=== PATIENT | female | born 1935 | race Caucasian/White ===

== ENCOUNTER 2018-03-02 14:27 | Inpatient (IN) | payer OTHER, MEDICARE ==
[2018-03-02 14:57] VITALS: BMI 26.6
[2018-03-02] MEDS ORDERED: QUINAPRIL HCL 20 MG TABLET (FP) PO ONE ×2 (15:24→21:15)
[2018-03-02] MEDS ORDERED: METOPROLOL TARTRATE 50 MG TABLET (FP) PO ONE (15:25)
[2018-03-02] MEDS ORDERED: FUROSEMIDE 20 MG TABLET (FP) PO ONE (15:25)
--- NOTE | 2018-03-02 15:33 | PDOC ---
History of Present Illness - General Chief Complaint: SIRS, Suspected/Possible Stated Complaint: LEFT LEG PAIN Time Seen by Provider: 03/02/18 15:02 History Source: Patient, EMS Exam Limitations: No Limitations - History of Present Illness Initial Comments: 03/02/18 15:26 The patient is an 82F with a PMH of HTN, urinary retention w/ quintana, a-fib on eliquis, spinal stenosis, and gait impairment who presents to the ER with complaints of congestion. The patient states that she's had a productive cough with yellow sputum x 2 days. She has never had a cough like this before. She called her daughter and her daughter encouraged her to call EMS. The patient denies fever, chills, but states she has some nausea. No CP or SOB, no abdominal pain. The patient states that he has a swollen leg but is unsure "maybe 3 weeks". Past History - Past Medical History Allergies/Adverse Reactions: Allergies Allergy/AdvReac Type Severity Reaction Status Date / Time No Known Allergies Allergy Verified 03/02/18 14:50 Home Medications: Ambulatory Orders Apixaban [Eliquis -] 5 mg PO BID tablet 04/19/16 Cardiac Disorders: Yes (afib) COPD: No HTN: Yes - Suicide/Smoking/Psychosocial Hx Smoking History: Former smoker Have you smoked in the past 12 months: No Information on smoking cessation initiated: No Hx Alcohol Use: No Drug/Substance Use Hx: No Substance Use Type: None Review of Systems - Review of Systems Able to Perform ROS?: Yes Comments:: 03/02/18 15:44 GENERAL/CONSTITUTIONAL: No fever or chills. No weakness. HEAD, EYES, EARS, NOSE AND THROAT: No change in vision. No ear pain or discharge. No sore throat. CARDIOVASCULAR: No chest pain, palpitations, or lightheadedness. RESPIRATORY: Positive for productive cough with yellow sputum. No wheezing or shortness of breath. GASTROINTESTINAL: Positive for nausea. No vomiting, diarrhea, constipation, or abdominal pain. GENITOURINARY: No dysuria, frequency, hematuria, or change in urination. MUSCULOSKELETAL: Positive for L leg swelling. No neck or back pain. SKIN: No rash or lesions. NEUROLOGIC: No headache, numbness, tingling, weakness, loss of consciousness, or change in strength/sensation. ENDOCRINE: No increased thirst. No abnormal weight change. HEMATOLOGIC/LYMPHATIC: No anemia, easy bleeding, or history of blood clots. ALLERGIC/IMMUNOLOGIC: No hives or skin allergy. Is the patient limited [place] proficient: No *Physical Exam - Vital Signs Last Vital Signs Temp Pulse Resp BP Pulse Ox 99.6 F 112 H 22 171/109 89 L 03/02/18 14:51 03/02/18 14:51 03/02/18 14:51 03/02/18 14:51 03/02/18 14:51 - Physical Exam Comments: 03/02/18 15:45 GENERAL: Well developed, well nourished. Awake and alert. No acute distress. HEENT: Normocephalic, atraumatic. Hearing grossly normal. Moist mucous membranes. PERRLA, EOMI. No conjunctival pallor. Sclera are non-icteric. NECK: Supple. Full ROM. No JVD. CARDIOVASCULAR: Regular rate and rhythm. No murmurs, rubs, or gallops. PULMONARY: No evidence of respiratory distress. B/l wheezing on expiration and rhonchi diffusely. ABDOMINAL: Soft. Non-tender. Non-distended. No rebound or guarding. GENITOURINARY: No CVA tenderness bilaterally. MUSCULOSKELETAL: Normal range of motion at all joints. No bony deformities or tenderness. EXTREMITIES: No cyanosis. No clubbing. 2+ edema in b/l LE. No calf tenderness. L leg more edematous than R. SKIN: Warm and dry. Normal capillary refill. No rashes. No jaundice. NEUROLOGICAL: Alert, awake, appropriate. Cranial nerves 2-12 intact. Normal speech. Gait is normal without ataxia. PSYCHIATRIC: Cooperative. Good eye contact. Appropriate mood and affect. ED Treatment Course - LABORATORY CBC & Chemistry Diagram: 03/02/18 15:20 03/02/18 15:20 - RADIOLOGY Radiology Studies Ordered: Category Date Time Status CHEST X-RAY PORTABLE* [RAD] Stat Radiology 03/02/18 15:09 Ordered DUPLEX VASCUL US-1 LEG [US] Stat Ultrasound 03/02/18 15:18 Ordered Medical Decision Making - Medical Decision Making 03/02/18 15:48 The patient is an 82F with a PMH of HTN, a-fib on eliquis, spinal stenosis, urinary retention, who presents to the ER with 2 days of congestion and productive cough. Will r/o PNA. Septic protocol being followed 2/2 to hypoxia and tachycardia. Pt is hypertensive, will give pt's home meds as she has not taken them in the morning. 03/02/18 16:00 Preliminary CXR read indicates cephalization without evidence of pneumonia or PTX. 03/02/18 17:55 Will give 20 IV lasix for CHF exacerbation. BNP 4262, doubled from previous BNP. Hospitalist paged for admission. 03/02/18 17:[address] Easley for tele admission. *DC/Admit/Observation/Transfer Diagnosis at time of Disposition: Acute exacerbation of CHF (congestive heart failure) Qualifiers: Heart failure type: unspecified Qualified Code(s): I50.9 - Heart failure, unspecified - Discharge Dispostion Condition at time of disposition: Stable Admit: Yes - Referrals Referrals: Yanick Calle MD [Primary Care Provider] - - Patient Instructions - Post Discharge Activity
[2018-03-02] MEDS ORDERED: FUROSEMIDE 40 MG TABLET (FP) ONE (15:46)
[2018-03-02] MEDS ORDERED: QUINAPRIL HCL 10 MG TABLET (FP) ONE ×2 (15:46→21:37)
[2018-03-02] MEDS ORDERED: METOPROLOL TARTRATE 50 MG TABLET (FP) ONE (15:47)
[2018-03-02 16:00] LABS: VENOUS PC02 45.4 mmHg (38-52); VENOUS PH 7.39 (7.32-7.42)
[2018-03-02 16:23] LABS: BASO % 0.7 % (0-2.0); HEMATOCRIT 40.7 % (32.4-45.2); LYMPH % 5.3 % (8-40); MCH 33.2 pg (25.7-33.7); MCHC 34.3 g/dl (32.0-36.0); MEAN CELL VOLUME 96.8 fl (80-96); MEAN PLT VOLUME 9.3 fl (7.5-11.1); MONO % 8.1 % (3.8-10.2); NEUT % 85.9 % (42.8-82.8); PLATELET COUNT 162 K/MM3 (134-434); RBC 4.21 M/mm3 (3.60-5.2); WHITE BLOOD COUNT 5.2 K/mm3 (4.0-10.0)
[2018-03-02 16:29] LABS: URINE APPEARANCE CLOUDY; URINE BILIRUBIN NEGATIVE (<2.0 mg/dL); URINE BLOOD 2+ (NEGATIVE); URINE COLOR YELLOW; URINE GLUCOSE (UA) NEGATIVE (NEGATIVE); URINE KETONE 1+ (NEGATIVE); URINE NITRITE NEGATIVE (NEGATIVE)
[2018-03-02 16:31] LABS: ALBUMIN 3.7 g/dl (3.4-5.0); ANION GAP 10 (8-16); BILIRUBIN,TOTAL 0.9 mg/dL (0.2-1.0); BLOOD UREA NITROGEN 13 mg/dL (7-18); CALCIUM 10.1 mg/dL (8.5-10.1); CHLORIDE 93 mmol/L (98-107); CO2 30 mmol/L (21-32); CREATININE 0.7 mg/dL (0.55-1.02); GLUCOSE,RANDOM 125 mg/dL (74-106); SODIUM 133 mmol/L (136-145); TOT PROT 7.9 g/dl (6.4-8.2)
[2018-03-02 16:33] LABS: ALK PHOS 87 U/L (45-117); N-TERMINAL BNP 4262.39 pg/ml (5-450); SGPT/ALT 15 U/L (12-78)
[2018-03-02 16:39] LABS: URINE LEUK ESTERASE 3+ (NEGATIVE); URINE PROTEIN 2+ (NEGATIVE)
[2018-03-02 16:48] LABS: INR 1.18 (0.82-1.09); PROTHROMBIN TIME (PATIENT) 13.3 SEC (9.98-11.88)
[2018-03-02 17:02] LABS: POTASSIUM 4.4 mmol/L (3.5-5.1)
[2018-03-02 17:03] LABS: SGOT/AST 51 U/L (15-37)
[2018-03-02] MEDS ORDERED: CEFTRIAXONE 1,000 MG in DEXTROSE 5%-WATER - 50 ML IVPB ONE (17:33)
--- NOTE | 2018-03-02 17:37 | PDOC ---
Attending Attestation - Resident Resident Name: JeremiasmelbaRajesh - ED Attending Attestation I have performed the following: I have examined & evaluated the patient, The case was reviewed & discussed with the resident, I agree w/resident's findings & plan, Exceptions are as noted - HPI HPI: 03/02/18 17:34 82-year-old female with history of hypertension, mild CHF presents with 2 days of increased cough with chest congestion. No fevers or chills, no chest pain. - Physicial Exam PE: 03/02/18 17:34 Tachycardia, relatively low O2 sat, afebrile. Course breath sounds with crackles bilaterally, no wheezing Left greater than right bilateral leg edema Abdomen benign - Medical Decision Making 03/02/18 17:35 Patient seen and evaluated with the resident. I agree with the overall evaluation, assessment, and management with the following summary of visit: 82-year-old female with chest congestion and cough for 2 days. Hypertensive, hypoxic, tachycardic. Presentation seems most consistent with CHF exacerbation, rule out ACS. Atrial fibrillation at 98 with strain pattern. Rule out pneumonia. Labs, urinalysis EKG, chest x-ray Diuresis, supplemental oxygen, chest x-ray Admission Heart Score/ECG Review #1 03/02/18 17:37 afib at 98, ST depression with TWIV4-V6. no TARYN
[2018-03-02] MEDS ORDERED: FUROSEMIDE 40 MG/4 ML INJECTABLE VIAL IVPUSH ONE (17:42)
[2018-03-02] MEDS ORDERED: FUROSEMIDE 40 MG/4 ML INJECTABLE VIAL ONE (18:06)
[2018-03-02] MEDS ORDERED: CEFTRIAXONE 1 GM/50 ML BAG ONE (18:06)
[2018-03-02 18:07] LABS: URINE BACTERIA RARE /hpf (NONE SEEN); URINE MUCUS RARE
--- NOTE | 2018-03-02 19:27 | PN ---
Teaching Attending Note Name of Resident: Francheska Carrillo ATTENDING PHYSICIAN STATEMENT I saw and evaluated the patient. I reviewed the resident's note and discussed the case with the resident. I agree with the resident's findings and plan as documented. SUBJECTIVE: 82 yo F w. pmhx. of htn, CHF, urinary retention with quintana, a-fib on Eliquis, spinal senosi, and gait impairment. who presents with 2 days of increased cough and congestion. States cough has been productive and she has had yellow sputum X 2 days. Also notes swollen leg X 3 weeks. Denies any fevers or chills. OBJECTIVE: Physical: VS: Vital Signs Period Temp Pulse Resp BP Sys/Miller Pulse Ox Last 24 Hr 98.9 F-99.6 F 76-112 22-24 147-171/77-109 3-93 GEN: NAD, resting in bed, AA)x3 HEENT: NCAT, PERRL, throat without erythema or exudates CARD: RRR S1, S2 RESP: Coarse bilateral crackles ABD: BSx4, NTD to palpation EXT: RLE non-pitting edema, LLE - C/C/E CBCD WBC 5.2 K/mm3 (4.0-10.0) 03/02/18 15:20 RBC 4.21 M/mm3 (3.60-5.2) 03/02/18 15:20 Hgb 14.0 GM/dL (10.7-15.3) D 03/02/18 15:20 Hct 40.7 % (32.4-45.2) 03/02/18 15:20 MCV 96.8 fl (80-96) H 03/02/18 15:20 MCHC 34.3 g/dl (32.0-36.0) 03/02/18 15:20 RDW 15.0 % (11.6-15.6) 03/02/18 15:20 Plt Count 162 K/MM3 (134-434) 03/02/18 15:20 MPV 9.3 fl (7.5-11.1) D 03/02/18 15:20 CMP Sodium 133 mmol/L (136-145) L 03/02/18 15:20 Potassium 4.4 mmol/L (3.5-5.1) 03/02/18 15:20 Chloride 93 mmol/L (98-107) L 03/02/18 15:20 Carbon Dioxide 30 mmol/L (21-32) 03/02/18 15:20 Anion Gap 10 (8-16) 03/02/18 15:20 BUN 13 mg/dL (7-18) 03/02/18 15:20 Creatinine 0.7 mg/dL (0.55-1.02) 03/02/18 15:20 Creat Clearance w eGFR > 60 (>60) 03/02/18 15:20 Random Glucose 125 mg/dL (74-106) H 03/02/18 15:20 Calcium 10.1 mg/dL (8.5-10.1) 03/02/18 15:20 Total Bilirubin 0.9 mg/dL (0.2-1.0) D 03/02/18 15:20 AST 51 U/L (15-37) H 03/02/18 15:20 ALT 15 U/L (12-78) 03/02/18 15:20 Alkaline Phosphatase 87 U/L (45-117) 03/02/18 15:20 Total Protein 7.9 g/dl (6.4-8.2) 03/02/18 15:20 Albumin 3.7 g/dl (3.4-5.0) 03/02/18 15:20 CXR- Cardiomegaly Urine Test Results Urine Color Yellow 03/02/18 15:58 Urine Appearance Cloudy 03/02/18 15:58 Urine pH 7.0 (5.0-8.0) D 03/02/18 15:58 Ur Specific [place] 1.013 (1.001-1.035) 03/02/18 15:58 Urine Protein 2+ (NEGATIVE) H 03/02/18 15:58 Urine Glucose (UA) Negative (NEGATIVE) 03/02/18 15:58 Urine Ketones 1+ (NEGATIVE) H 03/02/18 15:58 Urine Blood 2+ (NEGATIVE) H 03/02/18 15:58 Urine Nitrite Negative (NEGATIVE) 03/02/18 15:58 Urine Bilirubin Negative (<2.0 mg/dL) 03/02/18 15:58 Ur Leukocyte Esterase 3+ (NEGATIVE) H 03/02/18 15:58 Urine Bacteria Rare /hpf (NONE SEEN) 03/02/18 15:58 Urine Mucus Rare 03/02/18 15:58 Home Medications Medication Instructions Recorded Apixaban [Eliquis -] 5 mg PO BID tablet 04/19/16 EKG: A-fib at 98, ST depression with TWIV4-V6. no TARYN DUPLEX- DVT Negative ASSESSMENT AND PLAN: 82 yo F w. pmhx. of htn, CHF, urinary retention with quintana, a-fib on Eliquis, spinal senosi, and gait impairment. who presents with 2 days of increased cough/ congestion, found to have CHF Exacebration 1.) Acute Exacerbation of CHF- Possibly Systolic - Echo - Lasix in ED - Trend Trop/Ekg - Strict I/O - Na/Fluid restricy - Daily weights - Cardio Consult 2.) A-Fib - Currently rate controlled - C/W Eliquis 3.) UTI - Cx - Asymptomatic - LA, Repeat 4.) Dvt Ppx - On Eliquis Place in Obs- Tele
--- NOTE | 2018-03-02 20:24 | HP ---
CHIEF COMPLAINT: cough and congestion PCP: Dr. Calle HISTORY OF PRESENT ILLNESS: Patient is an 82 yo F with a pmhx of HTN, urinary retention w/ quintana, A-fib (on eliquis), spinal stenosis, and gait impairment, presented to the ED because of 3 days of congestion and cough with yellow sputum production. She also noticed Left lower extremity leg swelling over the past 3 weeks which she says has been on and off for years. She denies dyspnea, orthopnea, n/v, chest pain, lightheadedness, dysuria, diarrhea, and fever. ER course was notable for: (1) Lasix 60mg PO, 20mg IV (2) Dyspneic, O2 Sat in the 80's. (3) CXR: cardiomegaly, no acute pathology (4) Rocephin 1gm Recent Travel: n/a PAST MEDICAL HISTORY: per HPI PAST SURGICAL HISTORY: n/a Social History: Smoking: former smoker Alcohol: drinks 1 glass of wine every day Drugs: denies Family History: Allergies No Known Allergies Allergy (Verified 03/02/18 14:50) HOME MEDICATIONS: Home Medications Medication Instructions Recorded Apixaban [Eliquis -] 5 mg PO BID tablet 04/19/16 REVIEW OF SYSTEMS CONSTITUTIONAL: Absent: fever, chills, diaphoresis, generalized weakness, malaise, loss of appetite, weight change HEENT: Absent: rhinorrhea, nasal congestion, throat pain, throat swelling, difficulty swallowing, mouth swelling, ear pain, eye pain, visual changes CARDIOVASCULAR: Absent: chest pain, syncope, palpitations, irregular heart rate, lightheadedness , peripheral edema RESPIRATORY: cough Absent:shortness of breath, dyspnea with exertion, orthopnea, wheezing, stridor , hemoptysis GASTROINTESTINAL: Absent: abdominal pain, abdominal distension, nausea, vomiting, diarrhea, constipation, melena, hematochezia GENITOURINARY: Absent: dysuria, frequency, urgency, hesitancy, hematuria, flank pain, genital pain MUSCULOSKELETAL: Absent: myalgia, arthralgia, joint swelling, back pain, neck pain SKIN: Absent: rash, itching, pallor HEMATOLOGIC/IMMUNOLOGIC: Absent: easy bleeding, easy bruising, lymphadenopathy, frequent infections ENDOCRINE: Absent: unexplained weight gain, unexplained weight loss, heat intolerance, cold intolerance NEUROLOGIC: Absent: headache, focal weakness or paresthesias, dizziness, unsteady gait, seizure, mental status changes, bladder or bowel incontinence PSYCHIATRIC: Absent: anxiety, depression, suicidal or homicidal ideation, hallucinations. PHYSICAL EXAMINATION Vital Signs - 24 hr 03/02/18 03/02/18 03/02/18 14:51 15:58 17:39 Temperature 99.6 F 99.2 F 98.9 F Pulse Rate 112 H 88 Pulse Rate [ 76 82 Right] Respiratory 22 24 24 Rate Blood Pressure 171/109 147/77 Blood Pressure 165/93 147/77 [Right] O2 Sat by Pulse 89 L 93 L 3 L Oximetry (%) GENERAL: dyspneic, in no acute distress HEAD: Normal with no signs of trauma. EYES: extraocular movements intact, sclera anicteric, conjunctiva clear. EARS, NOSE, THROAT: Ears normal, nares patent, oropharynx clear without exudates. NECK: no JVD LUNGS: scattered wheezing, course bilateral crackles HEART: Regular rate and rhythm, normal S1 and S2 without murmur, rub or gallop. ABDOMEN: Soft, nontender, not distended, normoactive bowel sounds, no guarding, no rebound, no masses. UPPER EXTREMITIES: 2+ pulses, No clubbing. No peripheral edema. LOWER EXTREMITIES: 2+ pulses, 2+ pitting edema LLE. 1+ edema RLE PSYCHIATRIC: Cooperative. Good eye contact. Appropriate mood and affect. SKIN: Warm, dry, normal turgor, no rashes or lesions noted, normal capillary refill. Laboratory Results - last 24 hr 03/02/18 03/02/18 03/02/18 15:10 15:20 15:20 WBC 5.2 RBC 4.21 Hgb 14.0 D Hct 40.7 MCV 96.8 H MCH 33.2 MCHC 34.3 RDW 15.0 Plt Count 162 MPV 9.3 D Neutrophils % 85.9 H D Lymphocytes % 5.3 L D Monocytes % 8.1 Eosinophils % 0.0 D Basophils % 0.7 PT with INR 13.30 H INR 1.18 H PTT (Actin FS) 32.0 VBG pH POC VBG pCO2 POC VBG pO2 Mixed VBG HCO3 Sodium Potassium Chloride Carbon Dioxide Anion Gap BUN Creatinine Creat Clearance w eGFR Random Glucose Lactic Acid 2.5 H* Calcium Total Bilirubin AST ALT Alkaline Phosphatase B-Natriuretic Peptide Total Protein Albumin Urine Color Urine Appearance Urine pH Ur Specific [place] Urine Protein Urine Glucose (UA) Urine Ketones Urine Blood Urine Nitrite Urine Bilirubin Urine Urobilinogen Ur Leukocyte Esterase Urine WBC (Auto) Urine RBC (Auto) Urine Bacteria Urine Mucus 03/02/18 03/02/18 03/02/18 15:20 15:35 15:58 WBC RBC Hgb Hct MCV MCH MCHC RDW Plt Count MPV Neutrophils % Lymphocytes % Monocytes % Eosinophils % Basophils % PT with INR INR PTT (Actin FS) VBG pH 7.39 POC VBG pCO2 45.4 POC VBG pO2 20.0 L Mixed VBG HCO3 27.1 H Sodium 133 L Potassium 4.4 Chloride 93 L Carbon Dioxide 30 Anion Gap 10 BUN 13 Creatinine 0.7 Creat Clearance w eGFR > 60 Random Glucose 125 H Lactic Acid Calcium 10.1 Total Bilirubin 0.9 D AST 51 H ALT 15 Alkaline Phosphatase 87 B-Natriuretic Peptide 4262.39 H Total Protein 7.9 Albumin 3.7 Urine Color Yellow Urine Appearance Cloudy Urine pH 7.0 D Ur Specific [place] 1.013 Urine Protein 2+ H Urine Glucose (UA) Negative Urine Ketones 1+ H Urine Blood 2+ H Urine Nitrite Negative Urine Bilirubin Negative Urine Urobilinogen 2.0 H Ur Leukocyte Esterase 3+ H Urine WBC (Auto) 223 Urine RBC (Auto) 25 Urine Bacteria Rare Urine Mucus Rare CXR: cardiomegaly, no acute disease ASSESSMENT/PLAN: 82 yo F with a pmhx of HTN, urinary retention w/ quintana, A-fib (on eliquis), spinal stenosis, and gait impairment, presented with congestion, cough, and lower ext swelling and found to have acute chf exacerbation. #Acute CHF exacerbation -likely Systolic -BNP 4262 -Echo -Cont. Lasix 40mg IV -Strict I/O's -Daily weights -Cardiology consulted: Dr. Wild -Na/Fluid restriction -Trend Tro[place] 0.09 x2, FU next step #A-fib -Rate controlled -Eliquis 5mg BID #UTI -asymptomatic - positive U/A -Quintana -Cx pending -1 x dose ceftriaxone in ED #FEN -fluid restriction -replete as needed -Sodium restriction #PPX -on eliquis Visit type - Emergency Visit Emergency Visit: Yes ED Registration Date: 03/02/18 Care time: The patient presented to the Emergency Department on the above date and was hospitalized for further evaluation of their emergent condition. - New Patient This patient is new to me today: Yes Date on this admission: 03/04/18 - Critical Care Critical Care patient: No Hospitalist Screening - Colonoscopy Questionnaire Colonoscopy Questionnaire: Colonoscopy Questionnaire - Patient: 50 - 75 years old and never had a screening colonoscopy: Unknown History of colon or rectal polyps, or CA: Unknown History of IBD, Crohn's disease or UC: Unknown History of abdominal radiation therapy as a child: Unknown - Relative: 1 with colon or rectal CA, or polyps at age 60 or younger: Unknown Colon or rectal CA diagnosed at age 45 or younger: Unknown Multiple relatives with colon or rectal CA: Unknown - Outcome: Screening Result: Negative Screen
[2018-03-02] MEDS: APIXABAN 5 MG TABLET PO SCH (22:21)
--- NOTE | 2018-03-03 07:55 | PN ---
Physical Exam: SUBJECTIVE: Patient seen and examined by me this AM - Endorses productive cough; SOB improved. Denies f/c/n/v/d, cp, shell, ab pain, back pain; endorses left foot edema OBJECTIVE: Vital Signs Intake & Output 02/28/18 03/01/18 03/02/18 03/03/18 23:59 23:59 23:59 23:59 Output Total 500 Balance -500 Weight 72.575 kg Period Temp Pulse Resp BP Sys/Miller Pulse Ox Last 24 Hr 98 F-99.6 F 76-112 16-24 140-171/77-109 3-95 GENERAL: Elderly woman, NAD HEAD: NCAT EYES: PERRL, extraocular movements intact, sclera anicteric, conjunctiva clear. No ptosis. ENT: Ears normal, nares patent, oropharynx clear without exudates, moist mucous membranes. NECK: Trachea midline, full range of motion, supple. LUNGS: Trace wheezes noted in R lung field. Decreased air entry, unable to appreciate crackles, no accessory muscle use. HEART: IRR IRR, S1, S2 without murmur, rub or gallop. ABDOMEN: Soft, nontender, nondistended, normoactive bowel sounds, no guarding, no rebound, no hepatosplenomegaly, no masses. EXTREMITIES: 2+ pulses DP/PT pulses, 2+ LE edema to knee on L leg warm to touch ; R leg/foot cool to touch, no edema noted. NEUROLOGICAL: Cranial nerves II through XII grossly intact. Normal speech, gait not observed. Laboratory Results - last 24 hr CBC, BMP 03/02/18 15:20 03/02/18 15:20 03/02/18 03/02/18 03/02/18 15:10 15:20 15:20 WBC 5.2 RBC 4.21 Hgb 14.0 D Hct 40.7 MCV 96.8 H MCH 33.2 MCHC 34.3 RDW 15.0 Plt Count 162 MPV 9.3 D Neutrophils % 85.9 H D Lymphocytes % 5.3 L D Monocytes % 8.1 Eosinophils % 0.0 D Basophils % 0.7 PT with INR 13.30 H INR 1.18 H PTT (Actin FS) 32.0 VBG pH POC VBG pCO2 POC VBG pO2 Mixed VBG HCO3 Sodium Potassium Chloride Carbon Dioxide Anion Gap BUN Creatinine Creat Clearance w eGFR Random Glucose Lactic Acid 2.5 H* Calcium Total Bilirubin AST ALT Alkaline Phosphatase Troponin I B-Natriuretic Peptide Total Protein Albumin Urine Color Urine Appearance Urine pH Ur Specific [place] Urine Protein Urine Glucose (UA) Urine Ketones Urine Blood Urine Nitrite Urine Bilirubin Urine Urobilinogen Ur Leukocyte Esterase Urine WBC (Auto) Urine RBC (Auto) Urine Bacteria Urine Mucus 03/02/18 03/02/18 03/02/18 15:20 15:20 15:35 WBC RBC Hgb Hct MCV MCH MCHC RDW Plt Count MPV Neutrophils % Lymphocytes % Monocytes % Eosinophils % Basophils % PT with INR INR PTT (Actin FS) VBG pH 7.39 POC VBG pCO2 45.4 POC VBG pO2 20.0 L Mixed VBG HCO3 27.1 H Sodium 133 L Potassium 4.4 Chloride 93 L Carbon Dioxide 30 Anion Gap 10 BUN 13 Creatinine 0.7 Creat Clearance w eGFR > 60 Random Glucose 125 H Lactic Acid Calcium 10.1 Total Bilirubin 0.9 D AST 51 H ALT 15 Alkaline Phosphatase 87 Troponin I 0.09 H Cancelled B-Natriuretic Peptide 4262.39 H Total Protein 7.9 Albumin 3.7 Urine Color Urine Appearance Urine pH Ur Specific [place] Urine Protein Urine Glucose (UA) Urine Ketones Urine Blood Urine Nitrite Urine Bilirubin Urine Urobilinogen Ur Leukocyte Esterase Urine WBC (Auto) Urine RBC (Auto) Urine Bacteria Urine Mucus 03/02/18 03/02/18 03/02/18 15:58 22:07 22:07 WBC RBC Hgb Hct MCV MCH MCHC RDW Plt Count MPV Neutrophils % Lymphocytes % Monocytes % Eosinophils % Basophils % PT with INR INR PTT (Actin FS) VBG pH POC VBG pCO2 POC VBG pO2 Mixed VBG HCO3 Sodium Potassium Chloride Carbon Dioxide Anion Gap BUN Creatinine Creat Clearance w eGFR Random Glucose Lactic Acid 1.4 Calcium Total Bilirubin AST ALT Alkaline Phosphatase Troponin I 0.09 H B-Natriuretic Peptide Total Protein Albumin Urine Color Yellow Urine Appearance Cloudy Urine pH 7.0 D Ur Specific [place] 1.013 Urine Protein 2+ H Urine Glucose (UA) Negative Urine Ketones 1+ H Urine Blood 2+ H Urine Nitrite Negative Urine Bilirubin Negative Urine Urobilinogen 2.0 H Ur Leukocyte Esterase 3+ H Urine WBC (Auto) 223 Urine RBC (Auto) 25 Urine Bacteria Rare Urine Mucus Rare Active Medications Generic Name Dose Route Start Last Admin Trade Name Freq PRN Reason Stop Dose Admin Acetaminophen 650 mg 03/02/18 22:50 Tylenol - PO Q6H PRN PAIN LEVEL 1-5 Apixaban 5 mg 03/02/18 22:00 03/02/18 22:21 Eliquis - PO 5 mg BID ZOILA Administration Furosemide 40 mg 03/03/18 10:00 Lasix Injection - IVPUSH DAILY ZOILA Microbiology 03/03/18 19:31 Nasopharyngeal Swab Influenza Types A,B Antigen (KALYANI) - Final 03/03/18 19:31 Nasopharyngeal Swab - Final 03/02/18 15:20 Blood - Peripheral Venous Blood Culture - Preliminary NO GROWTH OBTAINED AFTER 24 HOURS, INCUBATION TO CONTINUE FOR 4 DAYS. 03/02/18 15:35 Blood - Peripheral Venous Blood Culture - Preliminary NO GROWTH OBTAINED AFTER 24 HOURS, INCUBATION TO CONTINUE FOR 4 DAYS. CXR 03/02 - Cardiomegaly. No other pathology noted. ECHO 03/03 - Severe biatrial dilatation; Severe TR; severe MR; mod AR; elevated RV pressure, normal LV size and function LE Duplex 03/02 - No dvts ASSESSMENT/PLAN: 82 yo F with a pmhx of HTN, urinary retention w/ quintana, A-fib (on eliquis), spinal stenosis, and gait impairment, presented with congestion, cough, and lower ext swelling and found to have acute chf exacerbation. Respiratory symptoms likely secondary to CHF, as opposed to infectious process. #Acute on Chronic CHF exacerbation -BNP 4262; ECHO results as noted above; -Lasix 40mg IV daily -Strict I/O's -Daily weights -Cardiology consulted -Dr. Wild -Na/Fluid restriction -Trops downtrending - CXR as noted above - Rocephin #A-fib -Rate controlled; lopressor 100mg BID -Eliquis 5mg BID #UTI - UA 3+ leuk esterase, 223 WBCs; no fevers, wbc count; chronic indwelling quintana - trend fever, wbc - flu negative -exchange quintana and send urine cultures -1 x dose ceftriaxone in ED - f/u blood cultures #HTN - c/w home quinipril #FEN -PO hydration -replete as needed -Sodium restricted diet #PPX Eliquis Plan discussed with attending, Dr. aKtia Jansen, PGY1 Visit type - Emergency Visit Emergency Visit: Yes ED Registration Date: 03/02/18 Care time: The patient presented to the Emergency Department on the above date and was hospitalized for further evaluation of their emergent condition. - New Patient This patient is new to me today: Yes Date on this admission: 03/03/18 - Critical Care Critical Care patient: No
[2018-03-03 09:10] LABS: BASO % 0.6 % (0-2.0); HEMATOCRIT 40.7 % (32.4-45.2); HEMOGLOBIN 13.7 GM/dL (10.7-15.3); LYMPH % 9.9 % (8-40); MCH 32.7 pg (25.7-33.7); MCHC 33.7 g/dl (32.0-36.0); MEAN CELL VOLUME 97.2 fl (80-96); MEAN PLT VOLUME 8.6 fl (7.5-11.1); MONO % 12.4 % (3.8-10.2); NEUT % 77.1 % (42.8-82.8); PLATELET COUNT 144 K/MM3 (134-434); RBC 4.19 M/mm3 (3.60-5.2); RDW 14.5 % (11.6-15.6)
[2018-03-03 09:33] LABS: ALBUMIN 3.4 g/dl (3.4-5.0); ANION GAP 10 (8-16); CALCIUM 9.7 mg/dL (8.5-10.1); CHLORIDE 95 mmol/L (98-107); CO2 30 mmol/L (21-32); GLUCOSE,RANDOM 101 mg/dL (74-106); MAGNESIUM 1.9 mg/dL (1.8-2.4); SODIUM 135 mmol/L (136-145)
[2018-03-03 09:37] LABS: ALK PHOS 76 U/L (45-117); BILIRUBIN,TOTAL 0.5 mg/dL (0.2-1.0); BLOOD UREA NITROGEN 13 mg/dL (7-18); CREATININE 0.6 mg/dL (0.55-1.02); PHOSPHOROUS 2.4 mg/dL (2.5-4.9); SGOT/AST 32 U/L (15-37); SGPT/ALT 13 U/L (12-78); TOT PROT 7.3 g/dl (6.4-8.2)
[2018-03-03] MEDS: FUROSEMIDE 40 MG/4 ML INJECTABLE VIAL IVPUSH SCH (10:00)
[2018-03-03] MEDS: APIXABAN 5 MG TABLET PO SCH ×2 (10:00→22:24)
[2018-03-03] MEDS ORDERED: MAGNESIUM 1GM/D5W 100ML - 100 ML IVPB IVPB ONE (10:30)
[2018-03-03] MEDS ORDERED: POTASSIUM PHOSPHATE 30 MM in SODIUM CHLORIDE 500 ML IVPB ONE (11:00)
--- NOTE | 2018-03-03 12:03 | CON.CARD ---
Cardiology Consult (text) - Consultation Consultation Note: cc: sob, cough hpi: 82 f hx htn, afib, here with sob, cough. Cough with yellow sputum. No cp , palps, dizzy, loc, pnd, orthopnea, le edema. pmh: per hpi psh: nc ros: perhpi; no nvd, fever, shell, vision changes, gib, hematuria, dysuria social: ex tob fam: nc meds: Home Medications Medication Instructions Recorded Apixaban [Eliquis -] 5 mg PO BID tablet 04/19/16 pe: Vital Signs Period Temp Pulse Resp BP Sys/Miller Pulse Ox Last 24 Hr 98 F-99.6 F 76-115 16-24 140-175/77-109 3-97 nad no jvd irreg, s1 s2 no mrg cta bl nl eff awake appropriate no le e/c/c abd nt nd pos bs no janudice diaphroesis pos dp pt Laboratory Last Values WBC 5.0 K/mm3 (4.0-10.0) 03/03/18 08:30 RBC 4.19 M/mm3 (3.60-5.2) 03/03/18 08:30 Hgb 13.7 GM/dL (10.7-15.3) 03/03/18 08:30 Hct 40.7 % (32.4-45.2) 03/03/18 08:30 MCV 97.2 fl (80-96) H 03/03/18 08:30 MCH 32.7 pg (25.7-33.7) 03/03/18 08:30 MCHC 33.7 g/dl (32.0-36.0) 03/03/18 08:30 RDW 14.5 % (11.6-15.6) 03/03/18 08:30 Plt Count 144 K/MM3 (134-434) 03/03/18 08:30 MPV 8.6 fl (7.5-11.1) 03/03/18 08:30 Neutrophils % 77.1 % (42.8-82.8) 03/03/18 08:30 Lymphocytes % 9.9 % (8-40) D 03/03/18 08:30 Monocytes % 12.4 % (3.8-10.2) H 03/03/18 08:30 Eosinophils % 0.0 % (0-4.5) 03/03/18 08:30 Basophils % 0.6 % (0-2.0) 03/03/18 08:30 PT with INR 13.30 SEC (9.98-11.88) H 03/02/18 15:20 INR 1.18 (0.82-1.09) H 03/02/18 15:20 PTT (Actin FS) 32.0 SECONDS (26.9-34.4) 03/02/18 15:20 VBG pH 7.39 (7.32-7.42) 03/02/18 15:35 POC VBG pCO2 45.4 mmHg (38-52) 03/02/18 15:35 POC VBG pO2 20.0 mmHg (28-48) L 03/02/18 15:35 Mixed VBG HCO3 27.1 meq/L (19-25) H 03/02/18 15:35 Sodium 135 mmol/L (136-145) L 03/03/18 08:32 Potassium 3.0 mmol/L (3.5-5.1) L 03/03/18 08:32 Chloride 95 mmol/L (98-107) L 03/03/18 08:32 Carbon Dioxide 30 mmol/L (21-32) 03/03/18 08:32 Anion Gap 10 (8-16) 03/03/18 08:32 BUN 13 mg/dL (7-18) 03/03/18 08:32 Creatinine 0.6 mg/dL (0.55-1.02) 03/03/18 08:32 Creat Clearance w eGFR > 60 (>60) 03/03/18 08:32 Random Glucose 101 mg/dL (74-106) 03/03/18 08:32 Lactic Acid 1.4 mmol/L (0.0-2.0) 03/02/18 22:07 Calcium 9.7 mg/dL (8.5-10.1) 03/03/18 08:32 Phosphorus 2.4 mg/dL (2.5-4.9) L 03/03/18 08:32 Magnesium 1.9 mg/dL (1.8-2.4) 03/03/18 08:32 Total Bilirubin 0.5 mg/dL (0.2-1.0) D 03/03/18 08:32 AST 32 U/L (15-37) 03/03/18 08:32 ALT 13 U/L (12-78) 03/03/18 08:32 Alkaline Phosphatase 76 U/L (45-117) 03/03/18 08:32 Troponin I 0.07 ng/ml (0.00-0.05) H 03/03/18 08:32 B-Natriuretic Peptide 4262.39 pg/ml (5-450) H 03/02/18 15:20 Total Protein 7.3 g/dl (6.4-8.2) 03/03/18 08:32 Albumin 3.4 g/dl (3.4-5.0) 03/03/18 08:32 Urine Color Yellow 03/02/18 15:58 Urine Appearance Cloudy 03/02/18 15:58 Urine pH 7.0 (5.0-8.0) D 03/02/18 15:58 Ur Specific [place] 1.013 (1.001-1.035) 03/02/18 15:58 Urine Protein 2+ (NEGATIVE) H 03/02/18 15:58 Urine Glucose (UA) Negative (NEGATIVE) 03/02/18 15:58 Urine Ketones 1+ (NEGATIVE) H 03/02/18 15:58 Urine Blood 2+ (NEGATIVE) H 03/02/18 15:58 Urine Nitrite Negative (NEGATIVE) 03/02/18 15:58 Urine Bilirubin Negative (<2.0 mg/dL) 03/02/18 15:58 Urine Urobilinogen 2.0 mg/dL (0.2-1.0) H 03/02/18 15:58 Ur Leukocyte Esterase 3+ (NEGATIVE) H 03/02/18 15:58 Urine WBC (Auto) 223 /hpf (3-5) 03/02/18 15:58 Urine RBC (Auto) 25 /hpf (0-3) 03/02/18 15:58 Urine Bacteria Rare /hpf (NONE SEEN) 03/02/18 15:58 Urine Mucus Rare 03/02/18 15:58 cxr: no chf ecg: afib, rate controlled, nl qtc, no ischemic changes a/p: 82 f hx htn, afib, here with sob, cough. sob, cough: -agree with trial of iv lasix for possible chf, although possibly infectious cause -check echo -no signs acs, ce's neg htn: -cont home meds afib: -cont ac, bb
[2018-03-03] MEDS: CEFTRIAXONE 1 GM in DEXTROSE 5%-WATER - 50 ML IVPB SCH (12:49)
[2018-03-03] MEDS ORDERED: ACETAMINOPHEN 325 MG TABLET (FP) ONE (12:50)
[2018-03-03] MEDS: ACETAMINOPHEN 325 MG TABLET (FP) PO PRN (12:52)
--- NOTE | 2018-03-03 13:39 | EKG ---
Test Reason : Blood Pressure : / mmHG Vent. Rate : 098 BPM Atrial Rate : 110 BPM P-R Int : 000 ms QRS Dur : 086 ms QT Int : 352 ms P-R-T Axes : 000 075 -69 degrees QTc Int : 449 ms ATRIAL FIBRILLATION VOLTAGE CRITERIA FOR LEFT VENTRICULAR HYPERTROPHY NONSPECIFIC ST AND T WAVE ABNORMALITY ABNORMAL ECG WHEN COMPARED WITH ECG OF 08-AUG-2008 20:34, SIGNIFICANT CHANGES HAVE OCCURRED Confirmed by MAYE MACHADO, TIMMY ([id number]) on 03/03/2018 1:39:03 PM Referred By: Confirmed By:TIMMY VILLAVICENCIO MD
[2018-03-03] MEDS ORDERED: POTASSIUM CHLORIDE TABS 20 MEQ TABLET.ER (FP) PO ONE ×2 (14:00→14:26)
--- NOTE | 2018-03-03 14:04 | MSN ---
Progress Note (SOAP) - Subjective Chief Complaint: cough, congestion History of Present Illness: Kristina Dela Cruz is an 82 year old female with a PMHx of HTN, urinary retention, atrial fibrillation that is rate controlled and anticoagulated on Elliquis, spinal stenosis, gait impairment who is admitted after presenting with 3 days of a productive cough with yellow sputum and congestion. Patient also presented with left lower extremity swelling for 3 weeks. Patient denied orthopnea, fever , chills, headaches, chest pain, n/v/c/d. Chest x-ray showed no acute processes. Lower extremity doppler did not show any evidence of DVT. In the ED the patient was given Lasix 60mg orally and 20mg IV. Patient had an O2 sat in the 80s. Patient was also found to have a positive UA and given ceftriaxone 1gm. Patient was seen and examined at the bedside. Patient stated that she continued to have a cough productive of yellow sputum that she stated was decreased from previous days. Patient stated that she continued to feel congested. She also continued to complain of swelling in the left lower extremity. Patient had no shortness of breath on oxygen. Patient denied fever, chills, chest pain, headaches, n/v/c/d, abd pain. - Current Medications Current Medications: Active Medications Acetaminophen (Tylenol -) 650 mg PO Q6H PRN PRN Reason: PAIN LEVEL 1-5 Last Admin: 03/03/18 12:52 Dose: 650 mg Apixaban (Eliquis -) 5 mg PO BID [facility] Last Admin: 03/03/18 10:00 Dose: 5 mg Furosemide (Lasix Injection -) 40 mg IVPUSH DAILY [facility] Last Admin: 03/03/18 10:00 Dose: 40 mg Potassium Phosphate 30 mm/ (Sodium Chloride) 510 mls @ 85 mls/hr IVPB ONCE ONE Stop: 03/03/18 16:59 Last Admin: 03/03/18 13:25 Dose: 85 mls/hr Ceftriaxone Sodium 1 gm/ (Dextrose) 50 mls @ 100 mls/hr IVPB DAILY [facility] Last Admin: 03/03/18 12:49 Dose: 100 mls/hr - Objective Vital Signs: Vital Signs Temperature 100.6 F H 03/03/18 12:49 Pulse Rate 115 H 03/03/18 11:20 Respiratory Rate 22 03/03/18 11:20 Blood Pressure 175/107 03/03/18 11:20 O2 Sat by Pulse Oximetry (%) 97 03/03/18 11:20 Constitutional: Yes: Well Nourished, No Distress, Calm Eyes: Yes: WNL, Conjunctiva Clear, EOM Intact HENT: Yes: WNL, Atraumatic, Normocephalic Neck: Yes: WNL, Supple, Trachea Midline Cardiovascular: Yes: Pulse Irregular, S1, S2 Respiratory: Yes: Wheezes (inspiratory and expiratory wheezes), Other (mild coarse breath sounds) Gastrointestinal: Yes: WNL, Normal Bowel Sounds, Soft Musculoskeletal: Yes: Back Pain (lower back pain 2/2 stenosis) Peripheral Pulses WNL: Yes Peripheral Pulses: Left Radial: 2+, Right Radial: 2+, Left Doralis Pedis: 2+, Right Dorsalis Pedis: 2+ Edema: Yes Edema: LLE: 2+, RLE: Trace Integumentary: Yes: WNL Neurological: Yes: WNL, Alert, Oriented ...Motor Strength: Yes: WNL Psychiatric: Yes: WNL, Alert, Oriented Labs Lab Results: CBC, BMP 03/03/18 08:30 03/03/18 08:32 Assessment/Plan Acute CHF exacerbation -CXR did not show any acute process -Lower extremity doppler did not show evidence of DVT -BNP 4262 -Echo showed severe tricuspid regurgitation, moderate aortic regurgitation -Continue Lasix 40mg IV -Strict I/O's -Daily weights -Cardiology consulted, recs appreciated -Na/Fluid restriction -Trops 0.09 x2, 0.07 -Physical therapy eval -flu swab ordered Atrial fibillation -Rate controlled -Eliquis 5mg bid UTI -positive UA -[place] in -Cultures pending -1 dose ceftriaxone in ED -Continue ceftriaxone 1gm daily F/E/N -fluid restriction -sodium restriction -Potassium on 03/03 3.0. Repleted DVT PpX -Eliquis 5mg bid Disposition -admitted to telemetry
--- NOTE | 2018-03-03 14:16 | PN ---
Teaching Attending Note Name of Resident: Ander Jansen ATTENDING PHYSICIAN STATEMENT I saw and evaluated the patient. I reviewed the resident's note and discussed the case with the resident. I agree with the resident's findings and plan as documented with exceptions below. SUBJECTIVE: patient seen and examined. breathing improved, no chest pain, abdominal or urinary symptoms. no fevers, chills. Positive cough. OBJECTIVE: Vital Signs Period Temp Pulse Resp BP Sys/Miller Pulse Ox Last 24 Hr 98 F-100.6 F 76-115 16-24 140-175/77-109 3-97 Intake & Output 02/28/18 03/01/18 03/02/18 03/03/18 23:59 23:59 23:59 23:59 Output Total 500 Balance -500 Weight 160 lb general: lying in bed in no acute distress, positive dyspnea with minimal effort in bed Chest: decreased effort, but unable to appreciate rales or wheezing abdomen: soft, obese, NT extremities: LE edema L>R, DP pulses bilaterally neck: no JVD noted Home Medication List Medication Instructions Recorded Confirmed Type Apixaban [Eliquis -] 5 mg PO BID tablet 04/19/16 History Active Medications Generic Name Dose Route Start Last Admin Trade Name Freq PRN Reason Stop Dose Admin Acetaminophen 650 mg 03/02/18 22:50 03/03/18 12:52 Tylenol - PO 650 mg Q6H PRN Administration PAIN LEVEL 1-5 Apixaban 5 mg 03/02/18 22:00 03/03/18 10:00 Eliquis - PO 5 mg BID ZOILA Administration Furosemide 40 mg 03/03/18 10:00 03/03/18 10:00 Lasix Injection - IVPUSH 40 mg DAILY ZOILA Administration Potassium Phosphate 30 mm/ 510 mls @ 85 mls/hr 03/03/18 11:00 03/03/18 13:25 Sodium Chloride IVPB 03/03/18 16:59 85 mls/hr ONCE ONE Administration Ceftriaxone Sodium 1 gm/ 50 mls @ 100 mls/hr 03/03/18 10:15 03/03/18 12:49 Dextrose IVPB 100 mls/hr DAILY ZOILA Administration Laboratory Results - last 24 hr 03/02/18 03/02/18 03/02/18 15:10 15:20 15:20 WBC 5.2 RBC 4.21 Hgb 14.0 D Hct 40.7 MCV 96.8 H MCH 33.2 MCHC 34.3 RDW 15.0 Plt Count 162 MPV 9.3 D Neutrophils % 85.9 H D Lymphocytes % 5.3 L D Monocytes % 8.1 Eosinophils % 0.0 D Basophils % 0.7 PT with INR 13.30 H INR 1.18 H PTT (Actin FS) 32.0 VBG pH POC VBG pCO2 POC VBG pO2 Mixed VBG HCO3 Sodium Potassium Chloride Carbon Dioxide Anion Gap BUN Creatinine Creat Clearance w eGFR Random Glucose Lactic Acid 2.5 H* Calcium Phosphorus Magnesium Total Bilirubin AST ALT Alkaline Phosphatase Troponin I B-Natriuretic Peptide Total Protein Albumin Urine Color Urine Appearance Urine pH Ur Specific [place] Urine Protein Urine Glucose (UA) Urine Ketones Urine Blood Urine Nitrite Urine Bilirubin Urine Urobilinogen Ur Leukocyte Esterase Urine WBC (Auto) Urine RBC (Auto) Urine Bacteria Urine Mucus 03/02/18 03/02/18 03/02/18 15:20 15:20 15:35 WBC RBC Hgb Hct MCV MCH MCHC RDW Plt Count MPV Neutrophils % Lymphocytes % Monocytes % Eosinophils % Basophils % PT with INR INR PTT (Actin FS) VBG pH 7.39 POC VBG pCO2 45.4 POC VBG pO2 20.0 L Mixed VBG HCO3 27.1 H Sodium 133 L Potassium 4.4 Chloride 93 L Carbon Dioxide 30 Anion Gap 10 BUN 13 Creatinine 0.7 Creat Clearance w eGFR > 60 Random Glucose 125 H Lactic Acid Calcium 10.1 Phosphorus Magnesium Total Bilirubin 0.9 D AST 51 H ALT 15 Alkaline Phosphatase 87 Troponin I 0.09 H Cancelled B-Natriuretic Peptide 4262.39 H Total Protein 7.9 Albumin 3.7 Urine Color Urine Appearance Urine pH Ur Specific [place] Urine Protein Urine Glucose (UA) Urine Ketones Urine Blood Urine Nitrite Urine Bilirubin Urine Urobilinogen Ur Leukocyte Esterase Urine WBC (Auto) Urine RBC (Auto) Urine Bacteria Urine Mucus 03/02/18 03/02/18 03/02/18 15:58 22:07 22:07 WBC RBC Hgb Hct MCV MCH MCHC RDW Plt Count MPV Neutrophils % Lymphocytes % Monocytes % Eosinophils % Basophils % PT with INR INR PTT (Actin FS) VBG pH POC VBG pCO2 POC VBG pO2 Mixed VBG HCO3 Sodium Potassium Chloride Carbon Dioxide Anion Gap BUN Creatinine Creat Clearance w eGFR Random Glucose Lactic Acid 1.4 Calcium Phosphorus Magnesium Total Bilirubin AST ALT Alkaline Phosphatase Troponin I 0.09 H B-Natriuretic Peptide Total Protein Albumin Urine Color Yellow Urine Appearance Cloudy Urine pH 7.0 D Ur Specific [place] 1.013 Urine Protein 2+ H Urine Glucose (UA) Negative Urine Ketones 1+ H Urine Blood 2+ H Urine Nitrite Negative Urine Bilirubin Negative Urine Urobilinogen 2.0 H Ur Leukocyte Esterase 3+ H Urine WBC (Auto) 223 Urine RBC (Auto) 25 Urine Bacteria Rare Urine Mucus Rare 03/03/18 03/03/18 03/03/18 08:30 08:32 08:32 WBC 5.0 RBC 4.19 Hgb 13.7 Hct 40.7 MCV 97.2 H MCH 32.7 MCHC 33.7 RDW 14.5 Plt Count 144 MPV 8.6 Neutrophils % 77.1 Lymphocytes % 9.9 D Monocytes % 12.4 H Eosinophils % 0.0 Basophils % 0.6 PT with INR INR PTT (Actin FS) VBG pH POC VBG pCO2 POC VBG pO2 Mixed VBG HCO3 Sodium 135 L Potassium 3.0 L Chloride 95 L Carbon Dioxide 30 Anion Gap 10 BUN 13 Creatinine 0.6 Creat Clearance w eGFR > 60 Random Glucose 101 Lactic Acid Calcium 9.7 Phosphorus 2.4 L Magnesium 1.9 Total Bilirubin 0.5 D AST 32 ALT 13 Alkaline Phosphatase 76 Troponin I 0.07 H B-Natriuretic Peptide Total Protein 7.3 Albumin 3.4 Urine Color Urine Appearance Urine pH Ur Specific [place] Urine Protein Urine Glucose (UA) Urine Ketones Urine Blood Urine Nitrite Urine Bilirubin Urine Urobilinogen Ur Leukocyte Esterase Urine WBC (Auto) Urine RBC (Auto) Urine Bacteria Urine Mucus CXR; ?mildly prominent pulmonary vasculature ASSESSMENT AND PLAN: 82 yof with afib on eliquis, urinary retention, spinal stenosis admitted with dysnea, leg edema, concerning for CHF and lower uncomplicated UTI -?Acute CHF -Lower uncomplicated UTI -Afib on eliquis -Chronic urinary retention with quintana -spinal stenosis PLan: no clear evidence of infectious process. Check Flu swab but less likely. No evidence of PNA currently. Trial with lasix, strict I/Os and daily weights. 2D echo results noted. Retrieve prior records. Change quintana, repeat urine studies. Ceftriaxone for now, follow up urine cultures. Continue eliquis. COnfirm home meds. PT eval. Dispo planning in 48 hours if continues to improve. Plan discussed with patient in detail, all questions answered.
[2018-03-03] MEDS: METOPROLOL TARTRATE 50 MG TABLET (FP) PO SCH (22:24)
[2018-03-03] MEDS ORDERED: FUROSEMIDE 40 MG/4 ML INJECTABLE VIAL IVPUSH ONE (23:47)
[2018-03-04] MEDS ORDERED: METOPROLOL TARTRATE 5 MG/5 ML VIAL IVPUSH ONE (01:29)
--- NOTE | 2018-03-04 05:57 | PN ---
Physical Exam: SUBJECTIVE: Patient seen and examined by me this AM - Pt endorsing productive cough, clear sputum; Complaining of lower back pain from lying in bed. Denies f/c/n/v/d, cp pain, ab pain, back pain, LE edema, neuro symptoms. OBJECTIVE: Vital Signs Intake & Output 03/01/18 03/02/18 03/03/18 03/04/18 23:59 23:59 23:59 23:59 Output Total 500 Balance -500 Weight 72.575 kg 72.575 kg Period Temp Pulse Resp BP Sys/Miller Pulse Ox Last 24 Hr 97.9 F-100.6 F 90-129 18-22 126-175/83-107 95-99 GENERAL: Elderly woman, NAD HEAD: NCAT EYES: PERRL, extraocular movements intact, sclera anicteric, conjunctiva clear. No ptosis. ENT: Ears normal, nares patent, oropharynx clear without exudates, moist mucous membranes. NECK: Trachea midline, full range of motion, supple. LUNGS: R lung wheezes noted. Trace crackles at lung bases, no accessory muscle use. HEART: IRR IRR, S1, S2 without murmur, rub or gallop. ABDOMEN: Soft, nontender, nondistended, normoactive bowel sounds, no guarding, no rebound, no hepatosplenomegaly, no masses. EXTREMITIES: 2+ pulses DP/PT pulses, 1+ LE edema in L foot; R leg/foot cool to touch, no edema noted. NEUROLOGICAL: Cranial nerves II through XII grossly intact. Normal speech, gait not observed. Laboratory Results - last 24 hr CBC, BMP 03/04/18 05:35 03/04/18 05:35 03/03/18 08:30 03/03/18 08:32 03/03/18 03/03/18 03/03/18 08:30 08:32 08:32 WBC 5.0 RBC 4.19 Hgb 13.7 Hct 40.7 MCV 97.2 H MCH 32.7 MCHC 33.7 RDW 14.5 Plt Count 144 MPV 8.6 Neutrophils % 77.1 Lymphocytes % 9.9 D Monocytes % 12.4 H Eosinophils % 0.0 Basophils % 0.6 Sodium 135 L Potassium 3.0 L Chloride 95 L Carbon Dioxide 30 Anion Gap 10 BUN 13 Creatinine 0.6 Creat Clearance w eGFR > 60 Random Glucose 101 Calcium 9.7 Phosphorus 2.4 L Magnesium 1.9 Total Bilirubin 0.5 D AST 32 ALT 13 Alkaline Phosphatase 76 Troponin I 0.07 H Total Protein 7.3 Albumin 3.4 Active Medications Generic Name Dose Route Start Last Admin Trade Name Freq PRN Reason Stop Dose Admin Acetaminophen 650 mg 03/02/18 22:50 03/03/18 12:52 Tylenol - PO 650 mg Q6H PRN Administration PAIN LEVEL 1-5 Apixaban 5 mg 03/02/18 22:00 03/03/18 22:24 Eliquis - PO 5 mg BID ZOILA Administration Duloxetine HCl 60 mg 03/04/18 10:00 Cymbalta - PO DAILY ZOILA Furosemide 40 mg 03/03/18 10:00 03/03/18 10:00 Lasix Injection - IVPUSH 40 mg DAILY ZOILA Administration Ceftriaxone Sodium 1 gm/ 50 mls @ 100 mls/hr 03/03/18 10:15 03/03/18 12:49 Dextrose IVPB 100 mls/hr DAILY ZOILA Administration Metoprolol Tartrate 100 mg 03/03/18 22:00 03/03/18 22:24 Lopressor - PO 100 mg BID ZOILA Administration Potassium Chloride 10 meq 03/04/18 10:00 K-Dur - PO DAILY ZOILA Quinapril HCl 20 mg 03/04/18 10:00 Accupril - PO DAILY [facility] Microbiology 03/03/18 19:31 Nasopharyngeal Swab Influenza Types A,B Antigen (KALYANI) - Final 03/03/18 19:31 Nasopharyngeal Swab - Final 03/02/18 15:20 Blood - Peripheral Venous Blood Culture - Preliminary NO GROWTH OBTAINED AFTER 24 HOURS, INCUBATION TO CONTINUE FOR 4 DAYS. 03/02/18 15:35 Blood - Peripheral Venous Blood Culture - Preliminary NO GROWTH OBTAINED AFTER 24 HOURS, INCUBATION TO CONTINUE FOR 4 DAYS. CXR 03/02 - Cardiomegaly. No other pathology noted. ECHO 03/03 - Severe biatrial dilatation; Severe TR; severe MR; mod AR; elevated RV pressure, normal LV size and function LE Duplex 03/02 - No dvts EKG 03/04 - noted ASSESSMENT/PLAN: 82 yo F with a pmhx of HTN, urinary retention w/ quintana, A-fib (on eliquis), spinal stenosis, and gait impairment, presented with congestion, cough, and lower ext swelling and found to have acute chf exacerbation. Respiratory symptoms likely secondary to CHF, as opposed to infectious process. #Acute on Chronic CHF exacerbation -BNP 4262; ECHO results as noted above; -Increased Lasix 40mg BID IV -Strict I/O's -Daily weights -Cardiology consulted -Dr. Wild -Na/Fluid restriction -Trops downtrending - CXR as noted above - pulm consulted, recs appreciated #A-fib - brief episode of afib with RVR to 140s-150 overnight; - cards consulted -Rate controlled; lopressor 100mg BID -Eliquis 5mg BID #UTI - UA 3+ leuk esterase, 223 WBCs; no fevers, wbc count; chronic indwelling quintana; Urine culture + ecoli, Group D strep - trend fever, wbc - flu negative - maintain quintana - Rocephin Day 2 - trend fever, WBC count #hypokalemia - K 3.1 this AM - PO KCL 40mg BID - Trend, replete #HTN - c/w home quinipril - Consider switch to ARB #FEN -PO hydration -replete as needed -Sodium restricted diet #PPX Eliquis Plan discussed with attending, Dr. Katia Jansen, PGY1 Visit type - Emergency Visit Emergency Visit: Yes ED Registration Date: 03/02/18 Care time: The patient presented to the Emergency Department on the above date and was hospitalized for further evaluation of their emergent condition. - New Patient This patient is new to me today: No - Critical Care Critical Care patient: No
[2018-03-04 06:39] LABS: BASO % 0.9 % (0-2.0); EOS % 0.2 % (0-4.5); HEMOGLOBIN 13.7 GM/dL (10.7-15.3); LYMPH % 17.9 % (8-40); MCH 33.3 pg (25.7-33.7); MCHC 34.3 g/dl (32.0-36.0); MEAN CELL VOLUME 97.3 fl (80-96); MEAN PLT VOLUME 8.8 fl (7.5-11.1); MONO % 15.8 % (3.8-10.2); NEUT % 65.2 % (42.8-82.8); PLATELET COUNT 145 K/MM3 (134-434); RBC 4.11 M/mm3 (3.60-5.2); RDW 14.3 % (11.6-15.6); WHITE BLOOD COUNT 4.1 K/mm3 (4.0-10.0)
[2018-03-04 07:01] LABS: ALBUMIN 3.1 g/dl (3.4-5.0); ANION GAP 11 (8-16); BILIRUBIN,TOTAL 0.5 mg/dL (0.2-1.0); BLOOD UREA NITROGEN 20 mg/dL (7-18); CALCIUM 9.8 mg/dL (8.5-10.1); CHLORIDE 97 mmol/L (98-107); CO2 31 mmol/L (21-32); CREATININE 0.8 mg/dL (0.55-1.02); GLUCOSE,RANDOM 144 mg/dL (74-106); MAGNESIUM 2.1 mg/dL (1.8-2.4); PHOSPHOROUS 2.5 mg/dL (2.5-4.9); POTASSIUM 3.1 mmol/L (3.5-5.1); SGOT/AST 32 U/L (15-37); SGPT/ALT 12 U/L (12-78); SODIUM 139 mmol/L (136-145); TOT PROT 6.6 g/dl (6.4-8.2)
[2018-03-04 07:02] LABS: ALK PHOS 68 U/L (45-117)
--- NOTE | 2018-03-04 07:32 | PN ---
Teaching Attending Note Name of Resident: Ander Jansen ATTENDING PHYSICIAN STATEMENT I saw and evaluated the patient. I reviewed the resident's note and discussed the case with the resident. I agree with the resident's findings and plan as documented with exceptions below. SUBJECTIVE: Patient seen and examined. shortness of breath with some improvement though no chest pain, palpitations or dizziness. leg swelling improved. OBJECTIVE: Vital Signs Period Temp Pulse Resp BP Sys/Miller Pulse Ox Last 24 Hr 97.9 F-100.6 F 92-129 17-22 126-175/83-107 96-99 Intake & Output 03/01/18 03/02/18 03/03/18 03/04/18 23:59 23:59 23:59 23:59 Intake Total 200 Output Total 500 900 Balance -500 -700 Weight 160 lb 160 lb General lying in bed in no acute distress Chest few bibasilar rales, coarse rales bilaterally Neck soft, supple, no JVD visualized Abdomen soft, NT Extremities markedly improved edema, positive pulses. Home Medication List Medication Instructions Recorded Confirmed Type Apixaban [Eliquis -] 5 mg PO BID tablet 04/19/16 03/03/18 History Active Medications Generic Name Dose Route Start Last Admin Trade Name Freq PRN Reason Stop Dose Admin Acetaminophen 650 mg 03/02/18 22:50 03/03/18 12:52 Tylenol - PO 650 mg Q6H PRN Administration PAIN LEVEL 1-5 Apixaban 5 mg 03/02/18 22:00 03/03/18 22:24 Eliquis - PO 5 mg BID ZOILA Administration Duloxetine HCl 60 mg 03/04/18 10:00 Cymbalta - PO DAILY ZOILA Furosemide 40 mg 03/03/18 10:00 03/03/18 10:00 Lasix Injection - IVPUSH 40 mg DAILY ZOILA Administration Ceftriaxone Sodium 1 gm/ 50 mls @ 100 mls/hr 03/03/18 10:15 03/03/18 12:49 Dextrose IVPB 100 mls/hr DAILY ZOILA Administration Metoprolol Tartrate 100 mg 03/03/18 22:00 03/03/18 22:24 Lopressor - PO 100 mg BID ZOILA Administration Potassium Chloride 10 meq 03/04/18 10:00 K-Dur - PO DAILY ZOILA Quinapril HCl 20 mg 03/04/18 10:00 Accupril - PO DAILY ZOILA Laboratory Results - last 24 hr 03/03/18 03/03/18 03/03/18 08:30 08:32 08:32 WBC 5.0 RBC 4.19 Hgb 13.7 Hct 40.7 MCV 97.2 H MCH 32.7 MCHC 33.7 RDW 14.5 Plt Count 144 MPV 8.6 Neutrophils % 77.1 Lymphocytes % 9.9 D Monocytes % 12.4 H Eosinophils % 0.0 Basophils % 0.6 Sodium 135 L Potassium 3.0 L Chloride 95 L Carbon Dioxide 30 Anion Gap 10 BUN 13 Creatinine 0.6 Creat Clearance w eGFR > 60 Random Glucose 101 Calcium 9.7 Phosphorus 2.4 L Magnesium 1.9 Total Bilirubin 0.5 D AST 32 ALT 13 Alkaline Phosphatase 76 Troponin I 0.07 H Total Protein 7.3 Albumin 3.4 03/04/18 03/04/18 05:35 05:35 WBC 4.1 RBC 4.11 Hgb 13.7 Hct 40.0 MCV 97.3 H MCH 33.3 MCHC 34.3 RDW 14.3 Plt Count 145 MPV 8.8 Neutrophils % 65.2 Lymphocytes % 17.9 D Monocytes % 15.8 H Eosinophils % 0.2 D Basophils % 0.9 Sodium 139 Potassium 3.1 L Chloride 97 L Carbon Dioxide 31 Anion Gap 11 BUN 20 H Creatinine 0.8 Creat Clearance w eGFR > 60 Random Glucose 144 H Calcium 9.8 Phosphorus 2.5 Magnesium 2.1 Total Bilirubin 0.5 AST 32 ALT 12 Alkaline Phosphatase 68 Troponin I Total Protein 6.6 Albumin 3.1 L Microbiology 03/03/18 19:31 Nasopharyngeal Swab Influenza Types A,B Antigen (KALYANI) - Final 03/03/18 19:31 Nasopharyngeal Swab - Final 03/02/18 15:20 Blood - Peripheral Venous Blood Culture - Preliminary NO GROWTH OBTAINED AFTER 24 HOURS, INCUBATION TO CONTINUE FOR 4 DAYS. 03/02/18 15:35 Blood - Peripheral Venous Blood Culture - Preliminary NO GROWTH OBTAINED AFTER 24 HOURS, INCUBATION TO CONTINUE FOR 4 DAYS. 2D echo results reviewed ASSESSMENT AND PLAN: 82 yof with afib on eliquis, urinary retention, spinal stenosis admitted with dysnea, leg edema, concerning for CHF and lower uncomplicated UTI -?Acute CHF, unclear if from afib with RVR -AFib with RVR, ?CHF related vs the potential etiology -Hypokalemia -Lower uncomplicated UTI -Chronic urinary retention with quintana -spinal stenosis PLan: Still dyspneic with exertion, telemetry with Afib non sustained upto 140s, swelling improved, lung with coarse rales, increase lasix to 40 mg IV BID and monitor renal function closely. No clear evidence of infectious process, monitor for now. Flu swab neg. Continue metoprolol current dose, titrate as needed. aggressive diuresis and see if HR improves with improved respiratory/volume status. COntinue eliquis. Goal K>4. Strict I/Os and daily weights. 2D echo results noted. Retrieve prior records. Quintana changed, repeat urinalysis neg, however post antibiotics. Follow up urine cultures and taper abx accordingly. Ceftriaxone day 2. PT eval. Dispo planning in 24-48 hours if respiratory status/HR improved and no new concerns. Plan discussed with patient, all questions answered.
[2018-03-04] MEDS ORDERED: cefTRIAXone SODIUM 1 GM VIAL ONE (08:41)
[2018-03-04] MEDS ORDERED: DEXTROSE 5%-WATER - 50 ML IVPB ONE (08:41)
[2018-03-04] MEDS: QUINAPRIL HCL 20 MG TABLET (FP) PO SCH (09:01)
[2018-03-04] MEDS: DULoxetine HCL 30 MG CAPSULE.DR (FP) PO SCH (09:01)
[2018-03-04] MEDS: FUROSEMIDE 40 MG/4 ML INJECTABLE VIAL IVPUSH SCH ×2 (09:02→13:24)
[2018-03-04] MEDS: POTASSIUM CHLORIDE TABS 10 MEQ TABLET.ER (FP) PO SCH (09:02)
[2018-03-04] MEDS: APIXABAN 5 MG TABLET PO SCH ×2 (09:02→21:35)
[2018-03-04] MEDS: METOPROLOL TARTRATE 50 MG TABLET (FP) PO SCH ×2 (09:02→21:34)
[2018-03-04] MEDS: CEFTRIAXONE 1 GM in DEXTROSE 5%-WATER - 50 ML IVPB SCH (09:03)
[2018-03-04] MEDS ORDERED: POTASSIUM CHLORIDE ORAL LIQUID 20 MEQ/15 ML PO ONE (09:45)
--- NOTE | 2018-03-04 11:28 | PN ---
Progress Note (short form) - Note Progress Note: s: no cp sob palps dizzy o: Vital Signs Period Temp Pulse Resp BP Sys/Miller Pulse Ox Last 24 Hr 97.9 F-100.6 F 92-129 17-18 126-156/83-95 96-99 nad no jvd irreg, s1 s2 no mrg cta bl nl eff aa03 no le e/c/c abd nt nd pos bs no janudice diaphroesis Current Medications Generic Name Dose Route Start Last Admin Trade Name Freq PRN Reason Stop Dose Admin Acetaminophen 650 mg 03/02/18 22:50 03/03/18 12:52 Tylenol - PO 650 mg Q6H PRN Administration PAIN LEVEL 1-5 Apixaban 5 mg 03/02/18 22:00 03/04/18 09:02 Eliquis - PO 5 mg BID ZOILA Administration Duloxetine HCl 60 mg 03/04/18 10:00 03/04/18 09:01 Cymbalta - PO 60 mg DAILY ZOILA Administration Furosemide 40 mg 03/04/18 14:00 Lasix Injection - IVPUSH BID@0600,1400 ZOILA Ceftriaxone Sodium 1 gm/ 50 mls @ 100 mls/hr 03/03/18 10:15 03/04/18 09:03 Dextrose IVPB 100 mls/hr DAILY ZOILA Administration Metoprolol Tartrate 100 mg 03/03/18 22:00 03/04/18 09:02 Lopressor - PO 100 mg BID ZOILA Administration Potassium Chloride 10 meq 03/04/18 10:00 03/04/18 09:02 K-Dur - PO 10 meq DAILY ZOILA Administration Potassium Chloride 40 meq 03/04/18 10:00 Potassium Chloride Oral Liquid PO 03/05/18 22:00 BID ZOILA Quinapril HCl 20 mg 03/04/18 10:00 03/04/18 09:01 Accupril - PO 20 mg DAILY ZOILA Administration CBC, BMP 03/04/18 05:35 03/04/18 05:35 cxr: no chf ecg: afib, rate controlled, nl qtc, no ischemic changes tele: afib, rate ok echo 02/2018: nl lv, rv not seen, sev anthony, iasa, sev mr, sev tr, rvsp 40-50, mod ar-->my review: mod mr, mod tr, mild ar a/p: 82 f hx htn, afib, here with sob, cough. sob, cough: -agree with trial of iv lasix for possible chf, although possibly infectious cause -i reviewd echo, nl lvef and no severe valve dz -no signs acs, ce's neg htn: -cont home meds afib: -cont ac, bb
[2018-03-04] MEDS: POTASSIUM CHLORIDE ORAL LIQUID 20 MEQ/15 ML PO SCH ×2 (12:05→21:35)
[2018-03-04 12:24] LABS: URINE APPEARANCE SLCLOUDY; URINE BILIRUBIN NEGATIVE (<2.0 mg/dL); URINE BLOOD 1+ (NEGATIVE); URINE COLOR LTYELLOW; URINE GLUCOSE (UA) NEGATIVE (NEGATIVE); URINE KETONE NEGATIVE (NEGATIVE); URINE NITRITE NEGATIVE (NEGATIVE); URINE PROTEIN NEGATIVE (NEGATIVE); URINE UROBILINOGEN NEGATIVE mg/dL (0.2-1.0)
[2018-03-04 12:26] LABS: URINE LEUK ESTERASE 1+ (NEGATIVE)
[2018-03-04 12:28] LABS: URINE HYALINE CAST 1 /lpf; URINE MUCUS RARE
--- NOTE | 2018-03-04 12:59 | MSN ---
Progress Note (SOAP) - Subjective Chief Complaint: cough, congestion History of Present Illness: Overnight, patient remained tachycardic with pulses in the 130s-150s. Patient remained afebrile. Patient was seen and examined at the bedside. Patient stated that she had some shortness of breath when she moved around and switched positions in bed. She stated that she continued to have a cough that was productive of sputum but was decreased in amount of sputum as well as change of color to more white and clear sputum. Patient stated that she continued to have back pain and was unable to be comfortable in bed. Patient noted that the swelling in her legs had decreased in amount. Patient did note that she had some weakness since she had been in bed and said that she hadn't had much of an appetite but did eat somewhat over the previous night. Patient denied orthopnea, chest pain, headaches, blurry vision, double vision, abd pain, numbness/tingling, n/v/c/d. - Current Medications Current Medications: Active Medications Acetaminophen (Tylenol -) 650 mg PO Q6H PRN PRN Reason: PAIN LEVEL 1-5 Last Admin: 03/03/18 12:52 Dose: 650 mg Apixaban (Eliquis -) 5 mg PO BID [facility] Last Admin: 03/04/18 09:02 Dose: 5 mg Duloxetine HCl (Cymbalta -) 60 mg PO DAILY [facility] Last Admin: 03/04/18 09:01 Dose: 60 mg Furosemide (Lasix Injection -) 40 mg IVPUSH BID@0600,1400 [facility] Ceftriaxone Sodium 1 gm/ (Dextrose) 50 mls @ 100 mls/hr IVPB DAILY [facility] Last Admin: 03/04/18 09:03 Dose: 100 mls/hr Metoprolol Tartrate (Lopressor -) 100 mg PO BID [facility] Last Admin: 03/04/18 09:02 Dose: 100 mg Potassium Chloride (K-Dur -) 10 meq PO DAILY [facility] Last Admin: 03/04/18 09:02 Dose: 10 meq Potassium Chloride (Potassium Chloride Oral Liquid) 40 meq PO BID [facility] Stop: 03/05/18 22:00 Last Admin: 03/04/18 12:05 Dose: Not Given Quinapril HCl (Accupril -) 20 mg PO DAILY [facility] Last Admin: 03/04/18 09:01 Dose: 20 mg - Objective Vital Signs: Vital Signs Temperature 98.6 F 03/04/18 10:00 Pulse Rate 110 H 03/04/18 10:00 Respiratory Rate 18 03/04/18 10:00 Blood Pressure 151/76 03/04/18 10:00 O2 Sat by Pulse Oximetry (%) 96 03/04/18 09:00 Constitutional: Yes: Well Nourished, No Distress, Calm Eyes: Yes: WNL, Conjunctiva Clear, EOM Intact HENT: Yes: WNL, Atraumatic, Normocephalic Neck: Yes: WNL, Supple, Trachea Midline Cardiovascular: Yes: Tachycardia, Pulse Irregular, S1, S2 Respiratory: Yes: Rales (diffusely throughout lungs), SOB (on exertion) Gastrointestinal: Yes: WNL, Normal Bowel Sounds, Soft Musculoskeletal: Yes: Back Pain Extremities: Yes: WNL Peripheral Pulses WNL: Yes Peripheral Pulses: Left Radial: 2+, Right Radial: 2+, Left Doralis Pedis: 2+, Right Dorsalis Pedis: 2+ Edema: Yes Edema: LLE: 1+, RLE: Trace Integumentary: Yes: WNL Neurological: Yes: WNL, Alert, Oriented ...Motor Strength: Yes: WNL Psychiatric: Yes: WNL, Alert, Oriented Labs Lab Results: CBC, BMP 03/04/18 05:35 03/04/18 05:35 Assessment/Plan Patient is an 82 year old female with a PMHx of HTN, urinary retention, atrial fibrillation, spinal stenosis, and gait impairement admitted after a 3 day hx of cough with sputum production and left lower extremity edema for CHF decompensation. Acute CHF decompensation -CXR did not show any acute process -Lower extremity doppler did not show evidence of DVT -BNP 4262 -Echo showed severe tricuspid regurgitation, moderate aortic regurgitation -Continue Lasix 40mg IV bid -Strict I/O's -Daily weights -Na/Fluid restriction -Cardiology consulted, recs appreciated -Pulmonlogy consulted, recs appreciated -Trops 0.09 x2, 0.07 -Physical therapy eval -flu swab negative -Continue to monitor K, bicarb, BUN, CRE Atrial fibillation -Rate controlled -Eliquis 5mg bid UTI -positive UA -Hilliard in -Cultures pending showed gram neg bacilli and group D strep/endococcus -New UA and cultures taken after Hilliard was switched -Ceftriaxone 1gm daily day 2 F/E/N -fluid restriction -sodium restriction -Potassium on 03/03 3.0, 03/04 3.1. Potassium on standing liquid 40mEq bid while patient is diuresed. DVT PpX -Eliquis 5mg bid Disposition -admitted to telemetry
--- NOTE | 2018-03-04 13:29 | EKG ---
Test Reason : Blood Pressure : / mmHG Vent. Rate : 132 BPM Atrial Rate : 138 BPM P-R Int : 000 ms QRS Dur : 080 ms QT Int : 356 ms P-R-T Axes : 000 080 -30 degrees QTc Int : 527 ms ATRIAL FIBRILLATION WITH RAPID VENTRICULAR RESPONSE NONSPECIFIC ST AND T WAVE ABNORMALITY ABNORMAL ECG WHEN COMPARED WITH ECG OF 02-MAR-2018 16:17, NO SIGNIFICANT CHANGE WAS FOUND Confirmed by DELANEY MACHADO, DIONY ([id number]) on 03/04/2018 1:29:31 PM Referred By: Confirmed By:DIONY BALTAZAR MD
[2018-03-04] MEDS ORDERED: FUROSEMIDE 40 MG/4 ML INJECTABLE VIAL IVPUSH SCH (14:00)
--- NOTE | 2018-03-04 15:13 | CON.PULM ---
Consult Consult Specialty:: PULM/CCM Referred by:: UBALDO Reason for Consultation:: SOB - History of Present Illness Chief Complaint: SOB History of Present Illness: 82 F, HTN, urinary retention w/ quintana, A-fib on eliquis, spinal stenosis, and gait impairment. Admitted via the ER due to 3 days of congestion and cough with yellow sputum production. No documented fever. No travel history or sick contacts. No hemoptysis. No significant febrile illness during the hospital course and no leukocytosis. CXR: chronic appearing increased markings / significant abnormal curvature of the spine - History Source History Provided By: Patient, Medical Record Limitations to Obtaining History: Poor Historian - Alcohol/Substance Use Hx Alcohol Use: No - Smoking History Smoking history: Former smoker Have you smoked in the past 12 months: No If you are a former smoker, when did you quit?: 30 yrs Home Medications - Allergies Allergies/Adverse Reactions: Allergies Allergy/AdvReac Type Severity Reaction Status Date / Time No Known Allergies Allergy Verified 03/02/18 14:50 - Home Medications Home Medications: Ambulatory Orders Apixaban [Eliquis -] 5 mg PO BID tablet 04/19/16 Review of Systems - Review of Systems Constitutional: reports: Malaise. denies: Chills, Fever, Night Sweats, Weakness Eyes: reports: No Symptoms HENT: reports: No Symptoms Neck: reports: No Symptoms Cardiovascular: reports: Shortness of Breath. denies: Chest Pain, Edema, Palpitations Respiratory: reports: Cough, SOB, SOB on Exertion. denies: Hemoptysis, Snoring , Wheezing Gastrointestinal: reports: No Symptoms Genitourinary: reports: No Symptoms Breasts: reports: No Symptoms Reported Musculoskeletal: reports: Back Pain, Muscle Pain, Muscle Cramps Integumentary: reports: No Symptoms Neurological: reports: Confusion Endocrine: reports: No Symptoms Hematology/Lymphatic: reports: No Symptoms Psychiatric: reports: No Symptoms Physical Exam Vital Sings: Vital Signs Temperature 99.0 F 03/04/18 13:05 Pulse Rate 86 03/04/18 13:05 Respiratory Rate 19 03/04/18 13:05 Blood Pressure 136/92 03/04/18 13:05 O2 Sat by Pulse Oximetry (%) 96 03/04/18 09:00 Constitutional: Yes: No Distress Eyes: Yes: Conjunctiva Clear, EOM Intact HENT: Yes: Atraumatic, Normocephalic Neck: Yes: Supple, Trachea Midline Cardiovascular: Yes: Pulse Irregular Respiratory: Yes: Cough, Diminished, On Nasal O2, Rhonchi. No: Accessory Muscle Use, Rales, Stridor, Tachypnea, Wheezes ...Inspection: Yes: WNL ...Clubbing: No Gastrointestinal: Yes: Normal Bowel Sounds, Soft Renal/: Yes: WNL Breast(s): Yes: WNL Musculoskeletal: Yes: WNL Extremities: Yes: WNL Edema: Yes Peripheral Pulses WNL: Yes Integumentary: Yes: WNL Neurological: Yes: Alert, Oriented, Confusion ...Motor Strength: WNL Psychiatric: Yes: WNL, Alert Labs: CBC, BMP 03/04/18 05:35 03/04/18 05:35 Imaging - Results Chest X-ray: Report Reviewed, Image Reviewed Problem List - Problems (1) Acute bronchitis Code(s): J20.9 - ACUTE BRONCHITIS, UNSPECIFIED (2) Acute exacerbation of CHF (congestive heart failure) Code(s): I50.9 - HEART FAILURE, UNSPECIFIED Qualifiers: Heart failure type: unspecified Qualified Code(s): I50.9 - Heart failure, unspecified (3) Leg edema, left Code(s): R60.0 - LOCALIZED EDEMA (4) Lower extremity edema Code(s): R60.0 - LOCALIZED EDEMA Assessment/Plan Agree with Lasix. O2 as needed Low Threshold to stop ABX and observe BD TX PRN Suspect a component of a restrictive lung process due to spinal disease. No acute management indicated but would obtain baseline PFTs after D/C Will need PT as likely has deconditioning Aspiration precautions No indication for systemic steroids. Will follow Dr Vitale
--- NOTE | 2018-03-04 15:55 | EKG ---
Test Reason : Blood Pressure : / mmHG Vent. Rate : 106 BPM Atrial Rate : 096 BPM P-R Int : 000 ms QRS Dur : 074 ms QT Int : 324 ms P-R-T Axes : 000 082 -41 degrees QTc Int : 430 ms ATRIAL FIBRILLATION WITH RAPID VENTRICULAR RESPONSE SEPTAL INFARCT , AGE UNDETERMINED ABNORMAL ECG WHEN COMPARED WITH ECG OF 04-MAR-2018 01:43, NO SIGNIFICANT CHANGE WAS FOUND Confirmed by DELANEY MACHADO, DIONY ([id number]) on 03/04/2018 3:55:03 PM Referred By: Confirmed By:DIONY BALTAZAR MD
[2018-03-05] MEDS: FUROSEMIDE 40 MG/4 ML INJECTABLE VIAL IVPUSH SCH ×2 (05:23→14:27)
--- NOTE | 2018-03-05 05:56 | PN ---
Physical Exam: SUBJECTIVE: Patient seen and examined - Endorses productive cough with clear sputum, improved since yesterday; Good UOP overnight; Denies dyspnea, SOB; denies f/c/n/v/d, DENNIS, dizziness, neck pain, cough, SOB, ab pain, back pain, LE edema OBJECTIVE: Vital Signs Intake & Output 03/02/18 03/03/18 03/04/18 03/05/18 23:59 23:59 23:59 23:59 Intake Total 320 120 Output Total 500 2300 200 Balance -500 -1979 Weight 72.575 kg 72.575 kg 65.317 kg Period Temp Pulse Resp BP Sys/Miller Pulse Ox Last 24 Hr 97.4 F-99.0 F 79-116 17-19 132-151/74-92 96-96 GENERAL: Elderly woman, NAD HEAD: NCAT EYES: PERRL, extraocular movements intact, sclera anicteric, conjunctiva clear. No ptosis. ENT: Ears normal, nares patent, oropharynx clear without exudates, moist mucous membranes. NECK: Trachea midline, full range of motion, supple. LUNGS: Diffuse BL crackles in all lung cyr, upper airway congestion noted, no accessory muscle use. HEART: IRR IRR, S1, S2 without murmur, rub or gallop. ABDOMEN: Soft, nontender, nondistended, normoactive bowel sounds, no guarding, no rebound, no hepatosplenomegaly, no masses. EXTREMITIES: 2+ pulses DP/PT pulses, No LE edema noted; BL warm and well perfused NEUROLOGICAL: Cranial nerves II through XII grossly intact. Normal speech, gait not observed. Laboratory Results - last 24 hr CBC, BMP 03/05/18 06:00 03/05/18 06:00 03/04/18 05:35 03/04/18 05:35 03/04/18 03/04/18 03/04/18 05:35 05:35 11:45 WBC 4.1 RBC 4.11 Hgb 13.7 Hct 40.0 MCV 97.3 H MCH 33.3 MCHC 34.3 RDW 14.3 Plt Count 145 MPV 8.8 Neutrophils % 65.2 Lymphocytes % 17.9 D Monocytes % 15.8 H Eosinophils % 0.2 D Basophils % 0.9 Sodium 139 Potassium 3.1 L Chloride 97 L Carbon Dioxide 31 Anion Gap 11 BUN 20 H Creatinine 0.8 Creat Clearance w eGFR > 60 Random Glucose 144 H Calcium 9.8 Phosphorus 2.5 Magnesium 2.1 Total Bilirubin 0.5 AST 32 ALT 12 Alkaline Phosphatase 68 Total Protein 6.6 Albumin 3.1 L Urine Color Ltyellow Urine Appearance Slcloudy Urine pH 7.0 Ur Specific [place] 1.009 Urine Protein Negative Urine Glucose (UA) Negative Urine Ketones Negative Urine Blood 1+ H Urine Nitrite Negative Urine Bilirubin Negative Urine Urobilinogen Negative Ur Leukocyte Esterase 1+ H D Urine WBC (Auto) 6 Urine RBC (Auto) 1 Hyaline Casts 1 Urine Mucus Rare Active Medications Generic Name Dose Route Start Last Admin Trade Name Freq PRN Reason Stop Dose Admin Acetaminophen 650 mg 03/02/18 22:50 03/03/18 12:52 Tylenol - PO 650 mg Q6H PRN Administration PAIN LEVEL 1-5 Apixaban 5 mg 03/02/18 22:00 03/04/18 21:35 Eliquis - PO 5 mg BID ZOILA Administration Duloxetine HCl 60 mg 03/04/18 10:00 03/04/18 09:01 Cymbalta - PO 60 mg DAILY ZOILA Administration Furosemide 40 mg 03/04/18 14:00 03/05/18 05:23 Lasix Injection - IVPUSH 40 mg BID@0600,1400 ZOILA Administration Ceftriaxone Sodium 1 gm/ 50 mls @ 100 mls/hr 03/03/18 10:15 03/04/18 09:03 Dextrose IVPB 100 mls/hr DAILY ZOILA Administration Metoprolol Tartrate 100 mg 03/03/18 22:00 03/04/18 21:34 Lopressor - PO 100 mg BID ZOILA Administration Potassium Chloride 10 meq 03/04/18 10:00 03/04/18 09:02 K-Dur - PO 10 meq DAILY ZOILA Administration Potassium Chloride 40 meq 03/04/18 10:00 03/04/18 21:35 Potassium Chloride Oral Liquid PO 03/05/18 22:00 40 meq BID ZOILA Administration Quinapril HCl 20 mg 03/04/18 10:00 03/04/18 09:01 Accupril - PO 20 mg DAILY ZOILA Administration Microbiology 03/02/18 15:20 Blood - Peripheral Venous Blood Culture - Preliminary NO GROWTH OBTAINED AFTER 48 HOURS, INCUBATION TO CONTINUE FOR 3 DAYS. 03/02/18 15:35 Blood - Peripheral Venous Blood Culture - Preliminary NO GROWTH OBTAINED AFTER 48 HOURS, INCUBATION TO CONTINUE FOR 3 DAYS. 03/02/18 15:58 Urine - Urine Clean Catch Urine Culture - Preliminary Lactose Fermenting Neg Bacilli Group D Strep Or Entero Coccus 03/03/18 19:31 Nasopharyngeal Swab Influenza Types A,B Antigen (KALYANI) - Final 03/03/18 19:31 Nasopharyngeal Swab - Final CXR 03/02 - Cardiomegaly. No other pathology noted. ECHO 03/03 - Severe biatrial dilatation; Severe TR; severe MR; mod AR; elevated RV pressure, normal LV size and function LE Duplex 03/02 - No dvts EKG 03/04 - noted CXR 03/05 - Enlarged heart. No other pathology noted. ASSESSMENT/PLAN: 82 yo F with a pmhx of HTN, urinary retention w/ quintana, A-fib (on eliquis), spinal stenosis, and gait impairment, presented with congestion, cough, and lower ext swelling and found to have acute chf exacerbation. Respiratory symptoms likely secondary to CHF, as opposed to infectious process. Diuresing well, cough/sob symptoms improving. Possible d/c in 24-48 hours. #Acute on Chronic CHF exacerbation -BNP 4262; ECHO results as noted above; - Lasix 40mg BID IV for one more day -Strict I/O's -Daily weights -Cardiology consulted -Dr. Wild -Na/Fluid restriction -Trops downtrending - pulm consulted, recs appreciated - Respiratory pre and post #A-fib - better controlled in 80-110s overnight; - cards consulted -Rate controlled; lopressor 100mg BID -Eliquis 5mg BID #UTI - UA 3+ leuk esterase, 223 WBCs; no fevers, wbc count; chronic indwelling quintana; Urine culture Klebisiella resistant to ampicillin, Group D strep - trend fever, wbc - flu negative - maintain quintana - Rocephin Day 3; transition to PO abx tomorrw - trend fever, WBC count #hypokalemia - REsolved - d/c KCL 40mg BID - Trend, replete #HTN - c/w home quinipril - Consider switch to ARB #FEN -PO hydration -replete as needed -Sodium restricted diet #PPX Eliquis Plan discussed with attending, Dr. Katia Jansen, PGY1 Visit type - Emergency Visit Emergency Visit: Yes ED Registration Date: 03/02/18 Care time: The patient presented to the Emergency Department on the above date and was hospitalized for further evaluation of their emergent condition. - New Patient This patient is new to me today: No - Critical Care Critical Care patient: No
[2018-03-05 07:08] LABS: BASO % 1.2 % (0-2.0); EOS % 0.8 % (0-4.5); HEMATOCRIT 40.8 % (32.4-45.2); HEMOGLOBIN 13.6 GM/dL (10.7-15.3); LYMPH % 22.5 % (8-40); MCH 32.4 pg (25.7-33.7); MCHC 33.3 g/dl (32.0-36.0); MEAN CELL VOLUME 97.3 fl (80-96); MEAN PLT VOLUME 8.8 fl (7.5-11.1); MONO % 18.6 % (3.8-10.2); NEUT % 56.9 % (42.8-82.8); PLATELET COUNT 144 K/MM3 (134-434); RBC 4.19 M/mm3 (3.60-5.2); RDW 14.9 % (11.6-15.6)
[2018-03-05 07:39] LABS: ALBUMIN 2.9 g/dl (3.4-5.0); ANION GAP 6 (8-16); BLOOD UREA NITROGEN 23 mg/dL (7-18); CALCIUM 9.8 mg/dL (8.5-10.1); CHLORIDE 101 mmol/L (98-107); CO2 33 mmol/L (21-32); CREATININE 0.6 mg/dL (0.55-1.02); GLUCOSE,RANDOM 105 mg/dL (74-106); PHOSPHOROUS 2.2 mg/dL (2.5-4.9); POTASSIUM 3.6 mmol/L (3.5-5.1); SGOT/AST 30 U/L (15-37); SODIUM 140 mmol/L (136-145)
[2018-03-05 07:57] LABS: ALK PHOS 63 U/L (45-117); BILIRUBIN,TOTAL 0.3 mg/dL (0.2-1.0); SGPT/ALT 12 U/L (12-78); TOT PROT 6.5 g/dl (6.4-8.2)
[2018-03-05] MEDS ORDERED: cefTRIAXone SODIUM 1 GM VIAL ONE (09:34)
[2018-03-05] MEDS ORDERED: DEXTROSE 5%-WATER - 50 ML IVPB ONE (09:34)
[2018-03-05] MEDS: QUINAPRIL HCL 20 MG TABLET (FP) PO SCH (09:43)
[2018-03-05] MEDS: POTASSIUM CHLORIDE ORAL LIQUID 20 MEQ/15 ML PO SCH (09:43)
[2018-03-05] MEDS: CEFTRIAXONE 1 GM in DEXTROSE 5%-WATER - 50 ML IVPB SCH (09:43)
[2018-03-05] MEDS: DULoxetine HCL 30 MG CAPSULE.DR (FP) PO SCH (09:44)
[2018-03-05] MEDS: METOPROLOL TARTRATE 50 MG TABLET (FP) PO SCH ×2 (09:44→21:19)
[2018-03-05] MEDS: APIXABAN 5 MG TABLET PO SCH ×2 (09:44→21:19)
[2018-03-05] MEDS: POTASSIUM CHLORIDE TABS 10 MEQ TABLET.ER (FP) PO SCH (09:44)
--- NOTE | 2018-03-05 11:15 | PN ---
Progress Note (short form) - Note Progress Note: s: no cp sob palps dizzy o: Vital Signs Period Temp Pulse Resp BP Sys/Miller Pulse Ox Last 24 Hr 97.4 F-99.0 F 79-103 18-19 132-138/74-92 91-96 nad no jvd irreg, s1 s2 no mrg cta bl nl eff aa03 no le e/c/c abd nt nd pos bs no janudice diaphroesis Current Medications Generic Name Dose Route Start Last Admin Trade Name Freq PRN Reason Stop Dose Admin Acetaminophen 650 mg 03/02/18 22:50 03/03/18 12:52 Tylenol - PO 650 mg Q6H PRN Administration PAIN LEVEL 1-5 Apixaban 5 mg 03/02/18 22:00 03/05/18 09:44 Eliquis - PO 5 mg BID ZOILA Administration Duloxetine HCl 60 mg 03/04/18 10:00 03/05/18 09:44 Cymbalta - PO 60 mg DAILY ZOILA Administration Furosemide 40 mg 03/04/18 14:00 03/05/18 05:23 Lasix Injection - IVPUSH 40 mg BID@0600,1400 ZOILA Administration Ceftriaxone Sodium 1 gm/ 50 mls @ 100 mls/hr 03/03/18 10:15 03/05/18 09:43 Dextrose IVPB 100 mls/hr DAILY ZOILA Administration Metoprolol Tartrate 100 mg 03/03/18 22:00 03/05/18 09:44 Lopressor - PO 100 mg BID ZOILA Administration Potassium Chloride 10 meq 03/04/18 10:00 03/05/18 09:44 K-Dur - PO 10 meq DAILY ZOILA Administration Quinapril HCl 20 mg 03/04/18 10:00 03/05/18 09:43 Accupril - PO 20 mg DAILY ZOILA Administration CBC, BMP 03/05/18 06:00 03/05/18 06:00 cxr: no chf ecg: afib, rate controlled, nl qtc, no ischemic changes tele: afib, rate ok echo 02/2018: nl lv, rv not seen, sev anthony, iasa, sev mr, sev tr, rvsp 40-50, mod ar-->my review: mod mr, mod tr, mild ar a/p: 82 f hx htn, afib, here with sob, cough. sob, cough, acute diastolic chf: -cont lasix, sxs improving. also on abx. can likely change to po lasix soon. -i reviewd echo, nl lvef and no severe valve dz -no signs acs, ce's neg htn: -cont home meds afib: -cont ac, bb
--- NOTE | 2018-03-05 12:59 | PN ---
Progress Note, Physician History of Present Illness: PULMONARY ALERT,FEELING BETTER,LESS CONGESTED - Current Medication List Current Medications: Active Medications Acetaminophen (Tylenol -) 650 mg PO Q6H PRN PRN Reason: PAIN LEVEL 1-5 Last Admin: 03/03/18 12:52 Dose: 650 mg Apixaban (Eliquis -) 5 mg PO BID [facility] Last Admin: 03/05/18 09:44 Dose: 5 mg Duloxetine HCl (Cymbalta -) 60 mg PO DAILY [facility] Last Admin: 03/05/18 09:44 Dose: 60 mg Furosemide (Lasix Injection -) 40 mg IVPUSH BID@0600,1400 [facility] Last Admin: 03/05/18 05:23 Dose: 40 mg Ceftriaxone Sodium 1 gm/ (Dextrose) 50 mls @ 100 mls/hr IVPB DAILY [facility] Last Admin: 03/05/18 09:43 Dose: 100 mls/hr Metoprolol Tartrate (Lopressor -) 100 mg PO BID [facility] Last Admin: 03/05/18 09:44 Dose: 100 mg Potassium Chloride (K-Dur -) 10 meq PO DAILY [facility] Last Admin: 03/05/18 09:44 Dose: 10 meq Quinapril HCl (Accupril -) 20 mg PO DAILY [facility] Last Admin: 03/05/18 09:43 Dose: 20 mg - Objective Vital Signs: Vital Signs Temperature 97.4 F L 03/05/18 01:27 Pulse Rate 103 H 03/05/18 11:05 Respiratory Rate 18 03/05/18 01:27 Blood Pressure 134/74 03/05/18 01:27 O2 Sat by Pulse Oximetry (%) 91 L 03/05/18 11:05 Constitutional: Yes: Well Nourished, Calm Eyes: Yes: WNL HENT: Yes: WNL Neck: Yes: WNL Cardiovascular: Yes: Pulse Irregular, S1, S2 Respiratory: Yes: Rhonchi (SCATTERED ISREAL RHONCHI) Gastrointestinal: Yes: Normal Bowel Sounds, Soft Extremities: Yes: WNL Edema: No Labs: CBC, BMP 03/05/18 06:00 03/05/18 06:00 INR, PTT INR 1.18 (0.82-1.09) H 03/02/18 15:20 Problem List - Problems (1) Pulmonary HTN Code(s): I27.20 - PULMONARY HYPERTENSION, UNSPECIFIED (2) Afib Code(s): I48.91 - UNSPECIFIED ATRIAL FIBRILLATION Assessment/Plan Problem List - Problems (1) Acute bronchitis Code(s): J20.9 - ACUTE BRONCHITIS, UNSPECIFIED (2) Acute exacerbation of CHF (congestive heart failure) Code(s): I50.9 - HEART FAILURE, UNSPECIFIED Qualifiers: Heart failure type: unspecified Qualified Code(s): I50.9 - Heart failure, unspecified (3) Leg edema, left Code(s): R60.0 - LOCALIZED EDEMA (4) Lower extremity edema Code(s): R60.0 - LOCALIZED EDEMA 4 AFIB 5 PULMONARY HTN Assessment/Plan Lasix. O2 as needed Low Threshold to stop ABX and observe Aspiration precautions AC PFTS OUTPATIENT inhaled bronchodilators daily wts DR FARMER
--- NOTE | 2018-03-05 13:18 | PN ---
Teaching Attending Note Name of Resident: Ander Jansen ATTENDING PHYSICIAN STATEMENT I saw and evaluated the patient. I reviewed the resident's note and discussed the case with the resident. I agree with the resident's findings and plan as documented with exceptions below. SUBJECTIVE: Patient seen and examined, breathing improved, reported palpitations few days ago, none currently. no dizziness while resting. leg swelling improved. OBJECTIVE: Vital Signs Period Temp Pulse Resp BP Sys/Miller Pulse Ox Last 24 Hr 97.4 F-98.2 F 79-105 18-20 132-138/74-91 91-96 Intake & Output 03/02/18 03/03/18 03/04/18 03/05/18 23:59 23:59 23:59 23:59 Intake Total 320 120 Output Total 500 2300 200 Balance -500 -1980 -80 Weight 160 lb 160 lb 144 lb General; sitting in bed, no acute distress, less dyspneic with conversation and activity today Chest: left basilar rales, markedly improved exam and air entry Extremities: almost resolved LE swelling ASSESSMENT AND PLAN: 82 yof with afib on eliquis, urinary retention, spinal stenosis admitted with dysnea, leg edema, concerning for CHF and lower uncomplicated UTI -?Acute CHF, unclear if from afib with RVR -AFib with RVR, ?CHF related vs the potential etiology -Hypokalemia -Lower uncomplicated UTI -Chronic urinary retention with quintana -spinal stenosis PLan: Volume status improved. 2.3 L output. Change lasix to PO in AM. HR improved, Continue metoprolol, titrate up over next 24 hours if refractory tachycardia. Continue eliquis. K goal > 4 Quintana changed, repeat urinalysis neg, however post antibiotics. Urine cultures noted, ceftriaxone day 3, change to cefuroxime for additional 4 days for a 7 day course. PT eval. Anticipate SNF. Dispo planning d/c to SNF in 2-3 days if breathing/HR improved and disposition arranged. Plan discussed with patient, all questions answered.
--- NOTE | 2018-03-05 13:23 | MSN ---
Progress Note (SOAP) - Subjective Chief Complaint: cough, congestion History of Present Illness: Overnight, patient did not have any acute events. CXR performed and did not show any acute changes since admission CXR. Patient was seen and examined at the bedside. Patient endorsed a cough that she stated had improved and she was bringing up less sputum than before. Patient stated that the swelling in her legs had decreased. Patient did state she felt fatigued. Patient denied shortness of breath at rest, orthopnea, chest pain, abd pain, arm/leg pain, n/v/c/d, blurry vision, double vision, fever, chills. - Current Medications Current Medications: Active Medications Acetaminophen (Tylenol -) 650 mg PO Q6H PRN PRN Reason: PAIN LEVEL 1-5 Last Admin: 03/03/18 12:52 Dose: 650 mg Albuterol/Ipratropium (Duoneb -) 1 amp NEB RTID [facility] Apixaban (Eliquis -) 5 mg PO BID [facility] Last Admin: 03/05/18 09:44 Dose: 5 mg Duloxetine HCl (Cymbalta -) 60 mg PO DAILY [facility] Last Admin: 03/05/18 09:44 Dose: 60 mg Furosemide (Lasix Injection -) 40 mg IVPUSH BID@0600,1400 [facility] Last Admin: 03/05/18 05:23 Dose: 40 mg Ceftriaxone Sodium 1 gm/ (Dextrose) 50 mls @ 100 mls/hr IVPB DAILY [facility] Last Admin: 03/05/18 09:43 Dose: 100 mls/hr Metoprolol Tartrate (Lopressor -) 100 mg PO BID [facility] Last Admin: 03/05/18 09:44 Dose: 100 mg Potassium Chloride (K-Dur -) 10 meq PO DAILY [facility] Last Admin: 03/05/18 09:44 Dose: 10 meq Quinapril HCl (Accupril -) 20 mg PO DAILY [facility] Last Admin: 03/05/18 09:43 Dose: 20 mg - Objective Vital Signs: Vital Signs Temperature 97.4 F L 03/05/18 10:00 Pulse Rate 103 H 03/05/18 11:05 Respiratory Rate 20 03/05/18 10:00 Blood Pressure 132/87 03/05/18 10:00 O2 Sat by Pulse Oximetry (%) 91 L 03/05/18 11:05 Constitutional: Yes: Well Nourished, No Distress, Calm Eyes: Yes: WNL, Conjunctiva Clear, EOM Intact HENT: Yes: WNL, Atraumatic, Normocephalic Neck: Yes: WNL, Supple, Trachea Midline Cardiovascular: Yes: Pulse Irregular, S1, S2 Respiratory: Yes: Cough (small amount of yellow sputum), Rales (diffuse) Gastrointestinal: Yes: WNL, Normal Bowel Sounds, Soft Musculoskeletal: Yes: Back Pain (chronic) Extremities: Yes: WNL Edema: No Neurological: Yes: WNL, Alert, Oriented Psychiatric: Yes: WNL, Alert, Oriented Labs Lab Results: CBC, BMP 03/05/18 06:00 03/05/18 06:00 Problem List - Problems (1) Acute exacerbation of CHF (congestive heart failure) Code(s): I50.9 - HEART FAILURE, UNSPECIFIED Qualifiers: Heart failure type: unspecified Qualified Code(s): I50.9 - Heart failure, unspecified (2) Afib Code(s): I48.91 - UNSPECIFIED ATRIAL FIBRILLATION (3) Leg edema, left Code(s): R60.0 - LOCALIZED EDEMA Assessment/Plan Patient is an 82 year old female with a PMHx of HTN, urinary retention, atrial fibrillation, spinal stenosis, and gait impairement admitted after a 3 day hx of cough with sputum production and left lower extremity edema for CHF decompensation. Acute CHF decompensation -CXR did not show any acute process -Lower extremity doppler did not show evidence of DVT -BNP 4262 -Echo showed severe tricuspid regurgitation, moderate aortic regurgitation -Lasix 40mg IV bid can switch to PO -Duoneb tid -Strict I/O's -Daily weights -Na/Fluid restriction -Cardiology consulted, recs appreciated -Pulmonlogy consulted, recs appreciated -PFTs to be done outpatient -Trops 0.09 x2, 0.07 -Physical therapy eval noted that patient walked 5ft will require SNF vs 24hr home services -flu swab negative -Continue to monitor K, bicarb, BUN, CRE -Pre and post showed patient unable to exercise and had decrease in sat and increase in pulse, to remain on O2 Atrial fibillation -Rate controlled -Eliquis 5mg bid -Lopressor 100mg bid UTI -positive UA -Hilliard in -Cultures pending showed Klebsiella and group D strep/endococcus -New UA and cultures taken after Hilliard was switched -Ceftriaxone 1gm daily day 3, can switch to PO to complete 7 day course HTN -quinapril 20mg daily F/E/N -fluid restriction -sodium restriction -Potassium on 03/03 3.0, 03/04 3.1. Potassium on standing 10mEq home dose DVT PpX -Eliquis 5mg bid Disposition -admitted to telemetry, will require SNF vs 24hr home services
[2018-03-05] MEDS: ALBUTEROL SO4 2.5/IPRATROPIUM 0.5 INH SOL 3 ML VIAL.NEB. NEB SCH ×2 (15:22→20:50)
[2018-03-06] MEDS: FUROSEMIDE 40 MG/4 ML INJECTABLE VIAL IVPUSH SCH (06:08)
--- NOTE | 2018-03-06 06:26 | PN ---
Physical Exam: SUBJECTIVE: Patient seen and examined - no major overnight events; afebrile, VSS; HR better controlled overnight - no cough this morning; unable to walk with PT due to SOB; denies f/c/n/v/d, CP , ab pain, back pain; intermittently hypertensive this AM to 170s; Plan to d/c to [facility] today OBJECTIVE: Vital Signs Intake & Output 03/03/18 03/04/18 03/05/18 03/06/18 23:59 23:59 23:59 23:59 Intake Total 320 320 Output Total 2300 1300 Balance -1979 -980 Weight 72.575 kg 65.317 kg Period Temp Pulse Resp BP Sys/Miller Pulse Ox Last 24 Hr 97.4 F-98 F 78-105 18-20 132-144/85-100 91-98 GENERAL: Elderly woman, NAD, A&Ox3 HEAD: NCAT EYES: PERRL, extraocular movements intact, sclera anicteric, conjunctiva clear. No ptosis. ENT: Ears normal, nares patent, oropharynx clear without exudates, moist mucous membranes. NECK: Trachea midline, full range of motion, supple. LUNGS: Bibasilar crackles, mild upper airway congestion and expiratory rhonchi appreciable, no accessory muscle use. HEART: IRR IRR, S1, S2 without murmur, rub or gallop. ABDOMEN: Soft, nontender, nondistended, normoactive bowel sounds, no guarding, no rebound, no hepatosplenomegaly, no masses. EXTREMITIES: 2+ pulses DP/PT pulses, 1+ BL LE edema noted; BL warm and well perfused NEUROLOGICAL: Cranial nerves II through XII grossly intact. Normal speech, gait not observed. Laboratory Results - last 24 hr CBC, BMP 03/06/18 06:00 03/06/18 06:00 03/05/18 06:00 03/05/18 06:00 03/05/18 03/05/18 03/05/18 06:00 06:00 16:40 WBC 4.0 RBC 4.19 Hgb 13.6 Hct 40.8 MCV 97.3 H MCH 32.4 MCHC 33.3 RDW 14.9 Plt Count 144 MPV 8.8 Neutrophils % 56.9 Lymphocytes % 22.5 D Monocytes % 18.6 H Eosinophils % 0.8 D Basophils % 1.2 Sodium 140 Potassium 3.6 Chloride 101 Carbon Dioxide 33 H Anion Gap 6 L BUN 23 H Creatinine 0.6 Creat Clearance w eGFR > 60 POC Glucometer 133 Random Glucose 105 Calcium 9.8 Phosphorus 2.2 L Magnesium 2.0 Total Bilirubin 0.3 D AST 30 ALT 12 Alkaline Phosphatase 63 Total Protein 6.5 Albumin 2.9 L Active Medications Generic Name Dose Route Start Last Admin Trade Name Freq PRN Reason Stop Dose Admin Acetaminophen 650 mg 03/02/18 22:50 03/03/18 12:52 Tylenol - PO 650 mg Q6H PRN Administration PAIN LEVEL 1-5 Albuterol/Ipratropium 1 amp 03/05/18 14:00 03/05/18 20:50 Duoneb - NEB 1 amp RTID [facility] Administration Apixaban 5 mg 03/02/18 22:00 03/05/18 21:19 Eliquis - PO 5 mg BID [facility] Administration Cefuroxime Axetil 250 mg 03/06/18 10:00 Ceftin - PO 03/09/18 22:00 BID [facility] Duloxetine HCl 60 mg 03/04/18 10:00 03/05/18 09:44 Cymbalta - PO 60 mg DAILY [facility] Administration Furosemide 40 mg 03/04/18 14:00 03/06/18 06:08 Lasix Injection - IVPUSH 40 mg BID@0600,1400 [facility] Administration Metoprolol Tartrate 100 mg 03/03/18 22:00 03/05/18 21:19 Lopressor - PO 100 mg BID [facility] Administration Potassium Chloride 10 meq 03/04/18 10:00 03/05/18 09:44 K-Dur - PO 10 meq DAILY [facility] Administration Quinapril HCl 20 mg 03/04/18 10:00 03/05/18 09:43 Accupril - PO 20 mg DAILY [facility] Administration Microbiology 03/02/18 15:20 Blood - Peripheral Venous Blood Culture - Preliminary NO GROWTH OBTAINED AFTER 72 HOURS, INCUBATION TO CONTINUE FOR 2 DAYS. 03/02/18 15:35 Blood - Peripheral Venous Blood Culture - Preliminary NO GROWTH OBTAINED AFTER 72 HOURS, INCUBATION TO CONTINUE FOR 2 DAYS. 03/02/18 15:58 Urine - Urine Clean Catch Urine Culture - Preliminary Klebsiella Pneumoniae Group D Strep Or Entero Coccus 03/04/18 02:07 Urine - Urine Quintana Urine Culture - Final NO GROWTH OBTAINED 03/03/18 19:31 Nasopharyngeal Swab Influenza Types A,B Antigen (KALYANI) - Final 03/03/18 19:31 Nasopharyngeal Swab - Final CXR 03/02 - Cardiomegaly. No other pathology noted. ECHO 03/03 - Severe biatrial dilatation; Severe TR; severe MR; mod AR; elevated RV pressure, normal LV size and function LE Duplex 03/02 - No dvts EKG 03/04 - noted CXR 03/05 - Enlarged heart. No other pathology noted. ASSESSMENT/PLAN: 82 yo F with a pmhx of HTN, urinary retention w/ quintana, A-fib (on eliquis), spinal stenosis, and gait impairment, presented with congestion, cough, and lower ext swelling and found to have acute chf exacerbation. Respiratory symptoms likely secondary to CHF, as opposed to infectious process. Diuresing well, cough/sob symptoms improving. Possible d/c in 24-48 hours. #Acute on Chronic CHF exacerbation -BNP 4262; ECHO results as noted above; - Lasix 40mg BID IV for one more day -Strict I/O's -Daily weights -Cardiology consulted -Dr. Wild -Na/Fluid restriction -Trops downtrending - pulm consulted, recs appreciated - Respiratory pre and post #A-fib - better controlled in 80-110s overnight; - cards consulted -Rate controlled; lopressor 100mg BID -Eliquis 5mg BID #UTI - UA 3+ leuk esterase, 223 WBCs; no fevers, wbc count; chronic indwelling quintana; Urine culture Klebisiella resistant to ampicillin, Group D strep - trend fever, wbc - flu negative - maintain quintana - Rocephin Day 3; transition to PO abx tomorrw - trend fever, WBC count #hypokalemia - REsolved - d/c KCL 40mg BID - Trend, replete #HTN - c/w home quinipril - Consider switch to ARB #FEN -PO hydration -replete as needed -Sodium restricted diet #PPX Eliquis Plan discussed with attending, Dr. Katia Jansen, PGY1
[2018-03-06] MEDS: METOPROLOL TARTRATE 50 MG TABLET (FP) PO SCH (06:48)
[2018-03-06 07:12] LABS: BASO % 1.2 % (0-2.0); EOS % 1.3 % (0-4.5); HEMATOCRIT 42.4 % (32.4-45.2); HEMOGLOBIN 14.2 GM/dL (10.7-15.3); LYMPH % 26.6 % (8-40); MCH 32.9 pg (25.7-33.7); MCHC 33.6 g/dl (32.0-36.0); MEAN CELL VOLUME 97.9 fl (80-96); MEAN PLT VOLUME 8.7 fl (7.5-11.1); MONO % 14.4 % (3.8-10.2); NEUT % 56.5 % (42.8-82.8); PLATELET COUNT 167 K/MM3 (134-434); RBC 4.33 M/mm3 (3.60-5.2); RDW 14.4 % (11.6-15.6); WHITE BLOOD COUNT 4.4 K/mm3 (4.0-10.0)
[2018-03-06 07:39] LABS: ALBUMIN 3.2 g/dl (3.4-5.0); ANION GAP 5 (8-16); BLOOD UREA NITROGEN 28 mg/dL (7-18); CALCIUM 10.1 mg/dL (8.5-10.1); CHLORIDE 99 mmol/L (98-107); CO2 35 mmol/L (21-32); CREATININE 0.7 mg/dL (0.55-1.02); GLUCOSE,RANDOM 106 mg/dL (74-106); POTASSIUM 3.9 mmol/L (3.5-5.1); SGOT/AST 29 U/L (15-37); SGPT/ALT 13 U/L (12-78); SODIUM 139 mmol/L (136-145)
[2018-03-06 07:41] LABS: ALK PHOS 64 U/L (45-117); BILIRUBIN,TOTAL 0.4 mg/dL (0.2-1.0)
[2018-03-06 07:53] VITALS: BP 136/84; PULSE 78; TEMP 98
[2018-03-06] MEDS: ALBUTEROL SO4 2.5/IPRATROPIUM 0.5 INH SOL 3 ML VIAL.NEB. NEB SCH (07:56)
--- NOTE | 2018-03-06 09:04 | PN ---
Teaching Attending Note Name of Resident: Ander Jansen ATTENDING PHYSICIAN STATEMENT I saw and evaluated the patient. I reviewed the resident's note and discussed the case with the resident. I agree with the resident's findings and plan as documented with exceptions below. SUBJECTIVE: Patient seen and examined, Breathing and swelling improved. Denies dizziness, chest pain or palpitations currently or overnight. Feeling weak and agreable to work with PT and rehab OBJECTIVE: Vital Signs Period Temp Pulse Resp BP Sys/Miller Pulse Ox Last 24 Hr 97.4 F-98.1 F 78-105 18-20 132-169/84-102 91-98 Intake & Output 03/03/18 03/04/18 03/05/18 03/06/18 23:59 23:59 23:59 23:59 Intake Total 320 320 Output Total 2300 1300 400 Balance -1980 -980 -400 Weight 160 lb 144 lb 146 lb 3.2 oz general: sitting in bed in no acute distress CVS:S1S2 irregular Chest: few left basilar rales, improved lung exam, no upper airway congestion or coarse rales appreciated Abdomen:Soft, NT extremities: almost resolved LE edema Home Medication List Medication Instructions Recorded Confirmed Type Apixaban [Eliquis -] 5 mg PO BID tablet 04/19/16 03/03/18 History Active Medications Generic Name Dose Route Start Last Admin Trade Name Freq PRN Reason Stop Dose Admin Acetaminophen 650 mg 03/02/18 22:50 03/03/18 12:52 Tylenol - PO 650 mg Q6H PRN Administration PAIN LEVEL 1-5 Albuterol/Ipratropium 1 amp 03/05/18 14:00 03/06/18 07:56 Duoneb - NEB 1 amp RTID [facility] Administration Apixaban 5 mg 03/02/18 22:00 03/05/18 21:19 Eliquis - PO 5 mg BID [facility] Administration Cefuroxime Axetil 250 mg 03/06/18 10:00 Ceftin - PO 03/09/18 22:00 BID [facility] Duloxetine HCl 60 mg 03/04/18 10:00 03/05/18 09:44 Cymbalta - PO 60 mg DAILY [facility] Administration Furosemide 40 mg 03/07/18 10:00 Lasix - PO DAILY [facility] Metoprolol Tartrate 100 mg 03/03/18 22:00 03/06/18 06:48 Lopressor - PO 100 mg BID [facility] Administration Potassium Chloride 10 meq 03/04/18 10:00 03/05/18 09:44 K-Dur - PO 10 meq DAILY [facility] Administration Quinapril HCl 20 mg 03/04/18 10:00 03/05/18 09:43 Accupril - PO 20 mg DAILY [facility] Administration Laboratory Results - last 24 hr 03/05/18 03/06/18 03/06/18 16:40 06:00 06:00 WBC 4.4 RBC 4.33 Hgb 14.2 Hct 42.4 MCV 97.9 H MCH 32.9 MCHC 33.6 RDW 14.4 Plt Count 167 MPV 8.7 Neutrophils % 56.5 Lymphocytes % 26.6 Monocytes % 14.4 H Eosinophils % 1.3 Basophils % 1.2 Sodium 139 Potassium 3.9 Chloride 99 Carbon Dioxide 35 H Anion Gap 5 L BUN 28 H Creatinine 0.7 Creat Clearance w eGFR > 60 POC Glucometer 133 Random Glucose 106 Calcium 10.1 Total Bilirubin 0.4 D AST 29 ALT 13 Alkaline Phosphatase 64 Total Protein 7.0 Albumin 3.2 L ASSESSMENT AND PLAN: 82 yof with afib on eliquis, urinary retention, spinal stenosis admitted with dysnea, leg edema, concerning for CHF and lower uncomplicated UTI -?Acute CHF, unclear if from afib with RVR -AFib with RVR, ?CHF related vs the potential etiology -Hypokalemia -Lower uncomplicated UTI -Chronic urinary retention with quintana -spinal stenosis PLan: Volume status improved, change lasix to 40 mg daily, increase standing K suppl to 20 meq with outpatient monitoring. Pre and post pulse ox noted. 1-2L with activity prn for comfort, taper off as tolerated. HR better, continue metoprolol. Cefuroxime, total 7 day course Quintana changed, outpatient urology follow up. D./c to [facility] today if bed available. Plan discussed with patient, all questions answered.
[2018-03-06] MEDS: QUINAPRIL HCL 20 MG TABLET (FP) PO SCH (09:15)
[2018-03-06] MEDS: DULoxetine HCL 30 MG CAPSULE.DR (FP) PO SCH (09:15)
[2018-03-06] MEDS: APIXABAN 5 MG TABLET PO SCH (09:16)
[2018-03-06] MEDS: ACETAMINOPHEN 325 MG TABLET (FP) PO PRN (09:16)
[2018-03-06] MEDS: POTASSIUM CHLORIDE TABS 10 MEQ TABLET.ER (FP) PO SCH (09:16)
[2018-03-06] MEDS ORDERED: CEFUROXIME AXETIL 250 MG TABLET PO SCH (10:00)
--- NOTE | 2018-03-06 10:24 | PN ---
Progress Note, Physician History of Present Illness: No complaints Breathing has improved, still with cough Tele: Afib 100s - Current Medication List Current Medications: Active Medications Acetaminophen (Tylenol -) 650 mg PO Q6H PRN PRN Reason: PAIN LEVEL 1-5 Last Admin: 03/06/18 09:16 Dose: 650 mg Albuterol/Ipratropium (Duoneb -) 1 amp NEB [facility]ID [facility] Last Admin: 03/06/18 07:56 Dose: 1 amp Apixaban (Eliquis -) 5 mg PO BID [facility] Last Admin: 03/06/18 09:16 Dose: 5 mg Cefuroxime Axetil (Ceftin -) 250 mg PO BID [facility] Stop: 03/09/18 22:00 Last Admin: 03/06/18 09:16 Dose: 250 mg Duloxetine HCl (Cymbalta -) 60 mg PO DAILY [facility] Last Admin: 03/06/18 09:15 Dose: 60 mg Furosemide (Lasix -) 40 mg PO DAILY [facility] Metoprolol Tartrate (Lopressor -) 100 mg PO BID [facility] Last Admin: 03/06/18 06:48 Dose: 100 mg Potassium Chloride (K-Dur -) 10 meq PO DAILY [facility] Last Admin: 03/06/18 09:16 Dose: 10 meq Quinapril HCl (Accupril -) 20 mg PO DAILY [facility] Last Admin: 03/06/18 09:15 Dose: 20 mg - Objective Vital Signs: Vital Signs Temperature 98.0 F 03/06/18 07:52 Pulse Rate 78 03/06/18 07:52 Respiratory Rate 18 03/06/18 07:52 Blood Pressure 136/84 03/06/18 07:52 O2 Sat by Pulse Oximetry (%) 98 03/05/18 21:00 Constitutional: Yes: No Distress, Calm Eyes: Yes: Conjunctiva Clear HENT: Yes: WNL Neck: Yes: WNL Cardiovascular: Yes: Pulse Irregular Respiratory: Yes: CTA Bilaterally Gastrointestinal: Yes: WNL Musculoskeletal: Yes: WNL Extremities: Yes: WNL Edema: No Labs: CBC, BMP 03/06/18 06:00 03/06/18 06:00 INR, PTT INR 1.18 (0.82-1.09) H 03/02/18 15:20
[2018-03-06] MEDS ORDERED: POTASSIUM CHLORIDE TABS 20 MEQ TABLET.ER (FP) PO SCH (10:40)
--- NOTE | 2018-03-06 11:50 | DS ---
Physical Exam: SUBJECTIVE: Patient seen and examined - no major overnight events; afebrile, VSS; HR better controlled overnight - no cough this morning; unable to walk with PT due to SOB; denies f/c/n/v/d, CP , ab pain, back pain; intermittently hypertensive this AM to 170s; Plan to d/c to [facility] today OBJECTIVE: Vital Signs Intake & Output 03/03/18 03/04/18 03/05/18 03/06/18 23:59 23:59 23:59 23:59 Intake Total 320 320 250 Output Total 2300 1300 400 Balance -1979 -980 -150 Weight 72.575 kg 65.317 kg 66.315 kg Period Temp Pulse Resp BP Sys/Miller Pulse Ox Last 24 Hr 97.6 F-98.1 F 78-92 18-20 136-169/84-102 98 PHYSICAL EXAM GENERAL: Elderly woman, NAD, A&Ox3 HEAD: NCAT EYES: PERRL, extraocular movements intact, sclera anicteric, conjunctiva clear. No ptosis. ENT: Ears normal, nares patent, oropharynx clear without exudates, moist mucous membranes. NECK: Trachea midline, full range of motion, supple. LUNGS: Bibasilar crackles, mild upper airway congestion and expiratory rhonchi appreciable, no accessory muscle use. HEART: IRR IRR, S1, S2 without murmur, rub or gallop. ABDOMEN: Soft, nontender, nondistended, normoactive bowel sounds, no guarding, no rebound, no hepatosplenomegaly, no masses. EXTREMITIES: 2+ pulses DP/PT pulses, 1+ BL LE edema noted; BL warm and well perfused NEUROLOGICAL: Cranial nerves II through XII grossly intact. Normal speech, gait not observed. LABS Laboratory Results - last 24 hr CBC, BMP 03/06/18 06:00 03/06/18 06:00 03/05/18 03/06/18 03/06/18 16:40 06:00 06:00 WBC 4.4 RBC 4.33 Hgb 14.2 Hct 42.4 MCV 97.9 H MCH 32.9 MCHC 33.6 RDW 14.4 Plt Count 167 MPV 8.7 Neutrophils % 56.5 Lymphocytes % 26.6 Monocytes % 14.4 H Eosinophils % 1.3 Basophils % 1.2 Sodium 139 Potassium 3.9 Chloride 99 Carbon Dioxide 35 H Anion Gap 5 L BUN 28 H Creatinine 0.7 Creat Clearance w eGFR > 60 POC Glucometer 133 Random Glucose 106 Calcium 10.1 Total Bilirubin 0.4 D AST 29 ALT 13 Alkaline Phosphatase 64 Total Protein 7.0 Albumin 3.2 L Microbiology 03/02/18 15:58 Urine - Urine Clean Catch Urine Culture - Preliminary Klebsiella Pneumoniae Enterococcus Faecalis 03/02/18 15:20 Blood - Peripheral Venous Blood Culture - Preliminary NO GROWTH OBTAINED AFTER 72 HOURS, INCUBATION TO CONTINUE FOR 2 DAYS. 03/02/18 15:35 Blood - Peripheral Venous Blood Culture - Preliminary NO GROWTH OBTAINED AFTER 72 HOURS, INCUBATION TO CONTINUE FOR 2 DAYS. 03/04/18 02:07 Urine - Urine Quintana Urine Culture - Final NO GROWTH OBTAINED 03/03/18 19:31 Nasopharyngeal Swab Influenza Types A,B Antigen (KALYANI) - Final 03/03/18 19:31 Nasopharyngeal Swab - Final Imaging: CXR 03/02 - Cardiomegaly. No other pathology noted. ECHO 03/03 - Severe biatrial dilatation; Severe TR; severe MR; mod AR; elevated RV pressure, normal LV size and function LE Duplex 03/02 - No dvts EKG 03/04 - noted CXR 03/05 - Enlarged heart. No other pathology noted. Consults: Pulm - Dr. Jack Cardiology - Dr. Lora [facility] COURSE: Prehospital course: Patient is an 82 yo F with a pmhx of HTN, urinary retention w/ quintana, A-fib (on eliquis), spinal stenosis, and gait impairment, presented to the ED because of 3 days of congestion and cough with yellow sputum production. She also noticed Left lower extremity leg swelling over the past 3 weeks which she says has been on and off for years. She denies dyspnea, orthopnea, n/v, chest pain, lightheadedness, dysuria, diarrhea, and fever. ER course was notable for: (1) Lasix 60mg PO, 20mg IV (2) Dyspneic, O2 Sat in the 80's. (3) CXR: cardiomegaly, no acute pathology (4) Rocephin 1gm Hospital course (by problem): #Acute on Chronic CHF exacerbation - Pt initial BNP 4262 on admission; ECHO results as noted above; Trops elevated at 0.9, downtrended on repeat; Lactate 2.5, later resolved; cardiology consulted; pt placed on lasix 40mg IV; SOB improved with diuresis; CXR notable for cardiomegaly; Pt with LE edema worse on L side; Duplex of LE negative for DVTs; Lasix increased to 40mg BID given persistent pulmonary congestion; responded well; O2 sats improved at rest, however pt still required 3L NC; plan for discharge on 1-2L O2 with activity and outpt f/u with cardiology in one week; pt discharged to SNF for short course of rehab #A-fib - Noted on rn cardiac rehab on presentation; Cont on Lopressor 100mg BID for rate control and Eliquis 5mg MID; Pt initially intermittenly tachy to 150s, however better controlled during admission to range of 80s to 110s; F/u with cardiology on discharge #UTI - UA 3+ leuk esterase, 223 WBCs on presentation; no fevers, wbc count; chronic indwelling quintana, exchanged and recultured during admission; Urine cultures on presentation + Klebisiella resistant to ampicillin, Group D strep; Pt treated with 3 days of IV rocephin, switched to Ceftin for 4 days to finish 7 day course on discharge #hypokalemia - Intermittently hypokalemia with diuresis; placed on KCL 40mg BID for two days, increased home dose to 20mg daily; recommend outpt BMP in 3 days #HTN -c/w home quinipril; BP relatively well controlled during admission, one episode of htn on day of discharge to 170s; Consider possible switch to ARB if hypokalemia persists Date of Admission:03/02/18 Date of Discharge: 03/06/18 Pt is medically stable and cleared for discharge to SNF for further rehabilitation before returning home. Will f/u with Dr. Wild in office in one week. Minutes to complete discharge: 35 Discharge Summary Reason For Visit: ACUTE ON CHRONIC CONGESTIVE HEART FAILURE Current Active Problems Acute bronchitis (Acute) Acute exacerbation of CHF (congestive heart failure) (Acute) Afib (Acute) Pulmonary HTN (Acute) Condition: Stable - Instructions Diet, Activity, Other Instructions: During your stay at [facility], you were treated for an exacerbation of your congestive heart failure and a urinary tract infection. You were treated with IV lasix and antibiotics and have since improved on this regimen. You are being discharged to a half-way facility for rehab. Medications: The following medications were added to your home regimen. Please take them as specified below: Ceftin 500mg, take one pill by mouth, twice a day, for three more days (03/07-), starting today evening The following changes were made to your home medications: Potassium chloride was increased from 10mg to 20 mg. Please take this pill once a day by mouth. Please continue to take all other home medications as previously directed. Follow-ups: Please follow-up with your primary care physician, Dr. Calle, in one week for further management of your medications. Please call their office to schedule an appointment. Please call within one week to schedule an appointment. Please follow-up with your loading manager, Dr. Wild, in one week for further management of your cardiac medication. His contact number has been provided in this packet. Please call his office to make an appointment. Please obtain the following labs after 3 days. Bring the results with you on your next visit to your PMD: Basic Metabolic Panel ( to monitor your kidneys and potassium levels) Diet/exercise: Please continue to use your quintana catheter as previously directed. Your quintana catheter was changed on 03/03/2018. Please use 1-2L of oxygen with activity. You will not require oxygen at rest. Taper oxygen as symptoms improved. Continue to work with physical therapy. Please return to the hospital if you experience any of the following symptoms: - Worsening pain in your bladder or back, or pain/stinging at your quintana site - Persistent fevers/chills - Prolonged shortness of breath or trouble breathing for >3 days - Worsening, persistent cough - Any new or concerning symptoms Referrals: Yanick Calle MD [Primary Care Provider] - 1 Week Conner Wild MD [Staff Physician] - 1 Week - Home Medications Comprehensive Discharge Medication List: Ambulatory Orders Apixaban [Eliquis -] 5 mg PO BID tablet 04/19/16 Acetaminophen [Tylenol .Regular Strength -] 650 mg PO Q6H PRN tablet 03/06/18 Albuterol 2.5/Ipratropium 0.5 [Duoneb -] 1 amp NEB RTID amp 03/06/18 Cefuroxime Axetil [Ceftin -] 250 mg PO BID tablet 03/06/18 Furosemide [Lasix -] 60 mg PO DAILY tablet 03/06/18 Potassium Chloride [K-Dur -] 20 meq PO DAILY tablet.er 03/06/18 This patient is new to me today: No Emergency Visit: Yes ED Registration Date: 03/02/18 Care time: The patient presented to the Emergency Department on the above date and was hospitalized for further evaluation of their emergent condition. Critical Care patient: No - Discharge Referral Referred to [facility] No
[2018-03-07] MEDS ORDERED: FUROSEMIDE 40 MG TABLET (FP) PO SCH (10:00)
== END 2018-03-06 13:16 | DRG 689 ==
LOC: JER 14:27 → JERBED 17:59 → J4S 03-03 23:36
PROVIDERS: ADMIT Internal Medicine; ATTEND Hospitalist
DX: N39.0 Urinary tract infection, site not specified (principal); I50.23 Acute on chronic systolic (congestive) heart failure; I48.91 Unspecified atrial fibrillation; I11.0 Hypertensive heart disease with heart failure; E87.6 Hypokalemia; M48.00 Spinal stenosis, site unspecified; I27.20 Pulmonary hypertension, unspecified; J20.9 Acute bronchitis, unspecified; R33.9 Retention of urine, unspecified
CPT/HCPCS: 36415; 71045-TC-FY; 80053; 81003; 81015; 82803; 82962; 83605; 83735; 83880; 84100; 84484; 85025; 85610; 85730; 87040; 87086; 87186; 87804; 93005; 93010; 93306-TC; 93971-TC; 94640; 94761; 97116-GP; 97161-GP; 99285-25

== ENCOUNTER 2018-08-17 16:52 | Emergency (ER) | payer OTHER, MEDICARE ==
[2018-08-17 17:42] VITALS: BMI 29.1
--- NOTE | 2018-08-17 17:51 | PDOC ---
Attending Attestation - Resident Resident Name: Aki Ruteldge - ED Attending Attestation I have performed the following: I have examined & evaluated the patient, The case was reviewed & discussed with the resident, I agree w/resident's findings & plan, Exceptions are as noted - HPI HPI: 08/17/18 17:50 83 yo female who has a history of urinary retention and has had an indwelling quintana for the past 1 1/2 yeawrs. She has not been able to urinate and presents with distended bladder,concern for clotted quintana plan change urinary quintana. - Physicial Exam PE: 08/17/18 18:32 83 yo female on gurney in no distress at this time because they changed her quintana and she is comfortable head ncat neck supple lungs ctga b.l cvs [id number] abd flat,nontender ext no erythema skin warm and dry neuro axox3 psych appropriate - Medical Decision Making 08/17/18 17:51 pt has h/o HTN also -reviewing old labs,her last createnine was 0.7 08/17/18 18:34 pt denies any fever or chills or vomiting her urologist id Dr Vang her quintana was changed just now 08/17/18 19:40 urinalysis reveals a UTI with nitrite positive and 360,ooo wbc imp uti, quintana replacement plan antibiotics and f/u with urologist
--- NOTE | 2018-08-17 18:05 | PDOC ---
History of Present Illness - General Chief Complaint: Urinary Catheter Problem Stated Complaint: PAIN Time Seen by Provider: 08/17/18 17:37 History Source: Patient Exam Limitations: No Limitations - History of Present Illness Initial Comments: 08/17/18 18:00 Patient is an 83F with history of urinary retention 2/2 spinal stenosis requiring quintana, afib (on eliquis) here today complaining of her quintana not working for the past 1.5 days. Patient states that urine been coming out, but at a much reduced rate. She's complaining of lower abdominal pain and associated distention. Denies fevers, chills, nausea, vomiting, back pain, and flank pain. Denies chest pain and shortness of breath. Patient is at her baseline mental status and feels otherwise well other than the pain in her lower abdomen. Past History - Past Medical History Allergies/Adverse Reactions: Allergies Allergy/AdvReac Type Severity Reaction Status Date / Time No Known Allergies Allergy Verified 08/17/18 17:37 Home Medications: Ambulatory Orders Apixaban [Eliquis -] 5 mg PO BID tablet 04/19/16 Acetaminophen [Tylenol .Regular Strength -] 650 mg PO Q6H PRN tablet 03/06/18 Albuterol 2.5/Ipratropium 0.5 [Duoneb -] 1 amp NEB RTID amp 03/06/18 Duloxetine HCl [Cymbalta -] 60 mg PO DAILY 08/17/18 Gabapentin [Neurontin -] 300 mg PO BID 08/17/18 Lactobacillus Acidophilus [Bacid -] 1 each PO BID 08/17/18 Lasix - 80 mg PO DAILY 08/17/18 Metoprolol Tartrate [Lopressor] 100 mg PO BID 08/17/18 Oxycodone HCl [Oxycontin] 10 mg PO BID PRN 08/17/18 Potassium Chloride [Klor-Con] 20 meq PO DAILY 08/17/18 Quinapril HCl [Accupril] 10 mg PO DAILY 08/17/18 Sulfamethoxazole/Trimethoprim [Bactrim Ds -] 1 tab PO BID #14 tablet 08/17/18 Cardiac Disorders: Yes (afib) COPD: No HTN: Yes - Suicide/Smoking/Psychosocial Hx Smoking History: Unknown if ever smoked Have you smoked in the past 12 months: No If you are a former smoker, when did you quit?: 30 yrs Hx Alcohol Use: No Drug/Substance Use Hx: No Substance Use Type: None Review of Systems - Review of Systems Able to Perform ROS?: Yes Comments:: 08/17/18 18:02 GENERAL/CONSTITUTIONAL: No fever or chills. No weakness. HEAD, EYES, EARS, NOSE AND THROAT: No change in vision. No ear pain or discharge. No sore throat. CARDIOVASCULAR: No chest pain or shortness of breath RESPIRATORY: No cough, wheezing, or hemoptysis. GASTROINTESTINAL: No nausea, vomiting, diarrhea or constipation. GENITOURINARY: No dysuria, frequency, or +retention MUSCULOSKELETAL: No joint or muscle swelling or pain. No neck or back pain. SKIN: No rash NEUROLOGIC: No headache, vertigo, loss of consciousness, or change in strength/ sensation. ENDOCRINE: No increased thirst. No abnormal weight change HEMATOLOGIC/LYMPHATIC: No anemia, easy bleeding, or history of blood clots. ALLERGIC/IMMUNOLOGIC: No hives or skin allergy. *Physical Exam - Vital Signs Last Vital Signs Temp Pulse Resp BP Pulse Ox 98.3 F 70 22 H 173/110 H 100 08/17/18 17:41 08/17/18 17:41 08/17/18 17:41 08/17/18 17:41 08/17/18 17:41 - Physical Exam Comments: 08/17/18 18:05 GENERAL: Awake, alert, and fully oriented, in no acute distress HEAD: No signs of trauma, normocephalic, atraumatic EYES: PERRLA, EOMI, sclera anicteric, conjunctiva clear ENT: Auricles normal inspection, hearing grossly normal, nares patent, oropharynx clear without exudates. Moist mucosa NECK: Normal ROM, supple, no lymphadenopathy, JVD, or masses LUNGS: No distress, speaks full sentences, clear to auscultation bilaterally HEART: Regular rate and rhythm, normal S1 and S2, no murmurs, rubs or gallops, peripheral pulses normal and equal bilaterally. ABDOMEN: +lower abd distention, normoactive bowel sounds. No guarding, no rebound. No masses EXTREMITIES: Normal inspection, Normal range of motion, no edema. No clubbing or cyanosis. NEUROLOGICAL: Cranial nerves II through XII grossly intact. Normal speech, no focal sensorimotor deficits SKIN: Warm, Dry, normal turgor, no rashes or lesions noted. Medical Decision Making - Medical Decision Making 08/17/18 18:06 Patient is 83F with history of urinary retention with quintana, HTN and afib here today with urinary retention. Patient is hypertensive. Likely secondary to pain. No signs of systemic infection. Cr normal 1 month prior, do not feel that this needs to be checked again today. Will change quintana, do ua/uc, discharge. Patient has appropriate outpatient follow up and home health aide. 08/17/18 19:47 1500cc released, patient reports feeling better. Given catheter, patient instructed to call Dr Calle to set up follow up. Will start on bactrim for complicated UTI. *DC/Admit/Observation/Transfer Diagnosis at time of Disposition: UTI (urinary tract infection), Urinary retention - Discharge Dispostion Disposition: HOME Condition at time of disposition: Good Decision to Admit order: No - Prescriptions Prescriptions: Sulfamethoxazole/Trimethoprim [Bactrim Ds -] 1 tab PO BID #14 tablet - Referrals Referrals: Yanick Calle MD [Primary Care Provider] - - Patient Instructions Printed Discharge Instructions: DI for Urinary Tract Infection (UTI), How to Care for Your Quintana Catheter -- Female, DI for Urinary Retention in Women Additional Instructions: Please call Dr Calle tomorrow to set up follow up. Please return immediately to the ED if you have any new, worsening or concerning symptoms, especially fever, confusion and increasing pain. - Post Discharge Activity
[2018-08-17 19:08] LABS: URINE APPEARANCE CLOUDY; URINE BILIRUBIN NEGATIVE (<2.0 mg/dL); URINE COLOR YELLOW; URINE GLUCOSE (UA) NEGATIVE (NEGATIVE); URINE KETONE NEGATIVE (NEGATIVE); URINE NITRITE POSITIVE (NEGATIVE); URINE PROTEIN NEGATIVE (NEGATIVE); URINE UROBILINOGEN NEGATIVE mg/dL (0.2-1.0)
[2018-08-17 19:34] LABS: URINE LEUK ESTERASE 3+ (NEGATIVE)
[2018-08-17 19:38] LABS: URINE BACTERIA MANY /hpf (NONE SEEN)
[2018-08-17] MEDS ORDERED: SULFAMETHOXAZOLE/TRIMETHOPRIM 800MG/160MG D.S. TABLET PO ONE (19:46)
[2018-08-17] MEDS ORDERED: SULFAMETHOXAZOLE/TRIMETHOPRIM 800MG/160MG D.S. TABLET ONE (20:52)
[2018-08-17 21:03] VITALS: BP 164/94; PULSE 78; TEMP 98
== END 2018-08-17 21:04 | disposition home or self-care (01) ==
LOC: JER 16:52
PROC: 0T2BX0Z Change Drainage Device in Bladder, External Approach (ICD-10-PCS; principal; 2018-08-17)
DX: N39.0 Urinary tract infection, site not specified (principal); T83.098A Other mechanical complication of other urinary catheter, initial encounter; I10 Essential (primary) hypertension; I48.91 Unspecified atrial fibrillation; Z79.01 Long term (current) use of anticoagulants
CPT/HCPCS: 51702; 81003; 81015; 87086; 87186; 99284-25

== ENCOUNTER 2019-02-20 11:43 | Inpatient (IN) | payer OTHER, MEDICARE ==
--- NOTE | 2019-02-20 12:32 | PDOC ---
Attending Attestation - HPI HPI: This patient is an 83 year old female with PMHx of urinary retention 2/2 spinal stenosis requiring quintana, afib (on eliquis) who presents with urinary catheter issue. Patient states that the catheter was originally placed by her urologist and was changed by her visiting nurse yesterday. Today she woke up with blood per the catheter site along with urinary retention. Urologist: Dr. Zakiya Price ([place]) PCP: Dr. Yanick Calle Allergies: none 02/20/19 12:44 - Physicial Exam PE: GENERAL: Awake, alert, and fully oriented, in no acute distress HEAD: No signs of trauma EYES: PERRLA, EOMI, sclera anicteric, conjunctiva clear LUNGS: Breath sounds equal, clear to auscultation bilaterally. No wheezes, and no crackles HEART: Tachycardic. Irregular rate and rhythm, normal S1 and S2, no murmurs, rubs or gallops ABDOMEN: Palpable full bladder. : Catheter not in properly. Clots coming out around catheter. Oswaldo blood in catheter. EXTREMITIES: RLE does not move on own. LLE moves a little, no edema. No cords, erythema, or tenderness NEUROLOGICAL: At baseline neuro. Cranial nerves II through XII grossly intact. Normal speech. SKIN: Warm, Dry, normal turgor, no rashes or lesions noted. 02/20/19 12:48 <Loretta Forrest - Last Filed: 02/20/19 12:48> - Resident Resident Name: Marisela Barba - ED Attending Attestation I have performed the following: I have examined & evaluated the patient, The case was reviewed & discussed with the resident, I agree w/resident's findings & plan, Exceptions are as noted - Medical Decision Making 02/20/19 12:31 I, Dr. Sandra Boyer, DO, attest that this document has been prepared under my direction and personally reviewed by me in its entirety. I further attest, that it accurately reflects all work, treatment, procedures and medical decision -making performed by me. 02/20/19 12:31 a/p: 83yo female from home with a chronic indwelling quintana catheter- blood in the catheter, no clots -blood also in the underwear, bleeding around the catheter, on elaquis -catheter was not in place, catheter was emergently removed, had 19cc of saline in the balloon, upon removal, urine and clots passed -a new 18f catheter was placed with ease, urine flowed easily that was blood tinged -pt feeling better -no external lacerations -will send labs, iv, blood counts -will send ua and ucx -will monitor and reassess 02/20/19 13:43 pt with mdr uti hx of vre, pseudomonas, kleb pneumo PMD dr. Calle, microblog sent to [facility] - will discuss with ID as well 02/20/19 14:[address] Lofton- ampicillin and fortaz 02/20/19 16:22 resident discussed the case with [facility] who accepts pt to service <Sandra Boyer - Last Filed: 02/20/19 16:22> Attestations - Attestations 02/20/19 12:49 Documentation prepared by Loretta Forrest, acting as medical detail representative for Sandra Boyer DO. <Loretta Forrest - Last Filed: 02/20/19 12:48>
--- NOTE | 2019-02-20 12:38 | PDOC ---
History of Present Illness - General Chief Complaint: Urinary Catheter Problem Stated Complaint: BLEEDING Time Seen by Provider: 02/20/19 11:57 - History of Present Illness Initial Comments: Kristina Dela Cruz is an 83yo woman with a PMH of HTN, a-fib on Eliquis, spinal stenosis c/b gait impariment and urinary retention, chronic indwelling catheter who presented to the ED with gross hematuria. She reports that she has had the catheter for a long time, and it is replaced on a regular schedule. She had a visiting nurse replace the catheter 2 days ago. Yesterday, she started having bloody urine as well as pain "in her crotch." Today she also has lower abdominal pain. She and her nurse today were concerned about the hematuria, and she presented for evaluation. Ms Dela Cruz reports that she has not had any recent symptoms prior to the catheter replacement. She denies fevers, chills, nausea/vomiting, change in bowel habits, new neurological symptoms, unusual bruising, or wounds. Past History - Past Medical History Allergies/Adverse Reactions: Allergies Allergy/AdvReac Type Severity Reaction Status Date / Time No Known Allergies Allergy Verified 02/20/19 11:51 Home Medications: Ambulatory Orders Apixaban [Eliquis -] 5 mg PO BID tablet 04/19/16 Acetaminophen [Tylenol .Regular Strength -] 650 mg PO Q6H PRN tablet 03/06/18 Albuterol 2.5/Ipratropium 0.5 [Duoneb -] 1 amp NEB RTID amp 03/06/18 Duloxetine HCl [Cymbalta -] 60 mg PO DAILY 08/17/18 Gabapentin [Neurontin -] 300 mg PO BID 08/17/18 Lactobacillus Acidophilus [Bacid -] 1 each PO BID 08/17/18 Lasix - 80 mg PO DAILY 08/17/18 Metoprolol Tartrate [Lopressor] 100 mg PO BID 08/17/18 Oxycodone HCl [Oxycontin] 10 mg PO BID PRN 08/17/18 Potassium Chloride [Klor-Con] 20 meq PO DAILY 08/17/18 Quinapril HCl [Accupril] 10 mg PO DAILY 08/17/18 Sulfamethoxazole/Trimethoprim [Bactrim Ds -] 1 tab PO BID #14 tablet 08/17/18 Cardiac Disorders: Yes (afib) COPD: No HTN: Yes Psychiatric Problems: Yes (major depression) - Suicide/Smoking/Psychosocial Hx Smoking History: Never smoked Have you smoked in the past 12 months: No If you are a former smoker, when did you quit?: 30 yrs Information on smoking cessation initiated: No Hx Alcohol Use: No Drug/Substance Use Hx: No Substance Use Type: None Review of Systems - Review of Systems Comments:: General: No fevers, no chills, no weight or appetite change, no malaise HEENT: No changes in vision, no changes in hearing, no congestion, no sore throat CV: No chest pain, no palpitations, no LE edema Pulm: No SOB, no cough, no wheezing GI: No nausea or vomiting, no change in bowel habits, no melena : See HPI Musc: No new back pain, no joint swelling, no recent injury. h/o spinal stenosis Skin: No rash, no lesions, no erythema Endo: No excessive thirst, no heat/cold intolerance Heme: No unusual bruising, no swollen glands Neuro: No syncope, no new weakness/numbness/tingling. h/o spinal stenosis Vasc: No claudication Psych: No recent change in mood, no SI or HI *Physical Exam - Vital Signs Last Vital Signs Temp Pulse Resp BP Pulse Ox 98.5 F 105 H 16 170/121 H 100 02/20/19 11:45 02/20/19 11:45 02/20/19 11:45 02/20/19 11:45 02/20/19 11:45 - Physical Exam Comments: General: Uncomfortable, in no acute distress HEENT: PERRL, EOMI, MMM, voice normal Cards: Irregular Pulm: Comfortable on room air, clear to auscultation bilaterally on anterior exam Abd: Soft. Suprapubic TTP w/ firm bladder palpable : Catheter w/ grossly bloody urine draining. External genitalia w/ blood clots covering. Menstrual pad w/ blood or bloody urine soaking. Catheter noted to be inserted only about 3cm. Ext: Atraumatic. 1+ LE edema. Vasc: Extremities WWP. Skin: Normal color, no rashes or lesions Neuro: A&Ox3, CN grossly intact, normal speech, motor/sensory grossly intact and symmetric Psych: Mood appropriate to situation ED Treatment Course - LABORATORY CBC & Chemistry Diagram: 02/20/19 12:31 02/20/19 12:31 Medical Decision Making - Medical Decision Making 02/20/19 12:38 Kristina Dela Cruz is an 83yo woman with a PMH of HTN, a-fib on Eliquis, spinal stenosis c/b gait impariment and urinary retention, chronic indwelling catheter who presented to the ED with gross hematuria. - Noted that quintana was not in place. Removed at bedside. Appeared to be positioned with balloon inside the urethra. Balloon noted to be over-filled w/ nearly 20cc of fluid in the balloon. - Bladder palpable and tender on exam - No obvious urethral injury visualized externally, but bright red bleeding with clots noted on menstrual pad. Likely to be from urethra rather than bladder - Immediate return of several hundred cc of grossly bloody urine, dark red- purple in color, after replacement of quintana - CBC, CMP, coags to r/o abnormalities - UA and urine culture given suspected retention due to misplaced catheter. h/o VRE, klebsiella, pseudamonas UTI. 02/20/19 13:42 - Labs reviewed. No concerning abnormalities - UA positive for UTI w/ 3+ leuk esterase, positive nitrites. Also notes 3+ protein, ketones, blood, bili - likely due to bleeding. - Page to hospitalist team for admission - Reviewed previous ucx results. Multidrug resistant bacteria. Will consult ID for recs, message sent to hospitalist to ask preferred ID physician. - Updated Ms Dela Cruz. Reports continued suprapubic pain. No longer rapid drainage of urine, approx 400cc total so far. Agreed to acetaminophen for pain but prefers to not take pain meds. 02/20/19 14:28 - Hospitalist requested Dr Lofton. Spoke to Dr Boyer. Recommending ampicillin and ceftazidime. - Waiting to sign out pt to admitting team 02/20/19 14:42 - Pt signed out to Ashleigh Estrada. Will be admitted to medicine on Dr Grant' s service. Discussed with Dr Boyer. Marisela Barba PGY1 *DC/Admit/Observation/Transfer Diagnosis at time of Disposition: Gross hematuria, UTI (urinary tract infection) - Discharge Dispostion Decision to Admit order: Yes - Referrals Referrals: Yanick Calle MD [Primary Care Provider] - - Patient Instructions - Post Discharge Activity
[2019-02-20 12:45] LABS: BASO % 1.4 % (0-2.0); EOS % 0.4 % (0-4.5); HEMATOCRIT 40.9 % (32.4-45.2); HEMOGLOBIN 13.9 GM/dL (10.7-15.3); LYMPH % 8.2 % (8-40); MCH 33.1 pg (25.7-33.7); MCHC 33.9 g/dl (32.0-36.0); MEAN CELL VOLUME 97.6 fl (80-96); MEAN PLT VOLUME 8.6 fl (7.5-11.1); MONO % 6.3 % (3.8-10.2); NEUT % 83.7 % (42.8-82.8); PLATELET COUNT 170 K/MM3 (134-434); RBC 4.19 M/mm3 (3.60-5.2); WHITE BLOOD COUNT 8.8 K/mm3 (4.0-10.0)
[2019-02-20 12:48] LABS: PH,URINE >= 9.0 (5.0-8.0); URINE APPEARANCE Turbid; URINE BILIRUBIN 3+ (NEGATIVE); URINE COLOR Red; URINE GLUCOSE (UA) Trace (NEGATIVE); URINE KETONE 2+ (NEGATIVE); URINE LEUK ESTERASE 3+ (NEGATIVE); URINE NITRITE Positive (NEGATIVE); URINE PROTEIN 3+ (NEGATIVE); URINE UROBILINOGEN >=8.0 E.U./dl mg/dL (0.2-1.0)
[2019-02-20 12:59] LABS: INR 1.23 (0.83-1.09); PROTHROMBIN TIME (PATIENT) 14.6 SEC (9.7-13.0)
[2019-02-20 13:01] LABS: ACTIVATED PTT 36.6 SECONDS (25.2-36.5)
[2019-02-20 13:24] LABS: ALBUMIN 3.7 g/dl (3.4-5.0); ALK PHOS 84 U/L (45-117); ANION GAP 9 MMOL/L (8-16); BILIRUBIN,TOTAL 0.7 mg/dL (0.2-1); BLOOD UREA NITROGEN 22 mg/dL (7-18); CHLORIDE 101 mmol/L (98-107); CO2 25 mmol/L (21-32); CREATININE 0.6 mg/dL (0.55-1.3); GLUCOSE,RANDOM 121 mg/dL (74-106); POTASSIUM 3.8 mmol/L (3.5-5.1); SGOT/AST 27 U/L (15-37); SGPT/ALT 17 U/L (13-61); SODIUM 135 mmol/L (136-145); TOT PROT 7.2 g/dl (6.4-8.2)
[2019-02-20 13:25] LABS: URINE BACTERIA 1+ /hpf (NEGATIVE); URINE RBC >100 /hpf (0-4)
[2019-02-20] MEDS ORDERED: ACETAMINOPHEN 325 MG TABLET (FP) PO ONE (13:55)
[2019-02-20] MEDS ORDERED: cefTAZidime PENTAHYDRATE 1 GM/50ML PRE-DOCKED (RESTRICTED TO ID) IVPB ONE (14:15)
[2019-02-20] MEDS ORDERED: AMPICILLIN - 2 GM in SODIUM CHLORIDE 100 ML IVPB ONE (14:17)
[2019-02-20] MEDS ORDERED: SODIUM CHLORIDE 0.9% 1000 ML INFUS.BAG IV ONE (14:17)
[2019-02-20] MEDS ORDERED: oxyCODONE HCL 10 MG SUSTAINED ACTING TABLET PO PRN (15:04)
[2019-02-20] MEDS ORDERED: ACETAMINOPHEN 325 MG TABLET (FP) PO PRN (15:04)
[2019-02-20] MEDS ORDERED: ACETAMINOPHEN 325 MG TABLET (FP) ONE (15:10)
--- NOTE | 2019-02-20 15:10 | HP ---
CHIEF COMPLAINT:blood in urine PCP:Dr. Calle HISTORY OF PRESENT ILLNESS: Kristina Dela Cruz is a 83 year old female with PMHx of urinary retention 2/2 spinal stenosis requiring quintana, afib (on eliquis), CHF, presented to ED with urinary catheter issue. Patient states that the catheter was originally placed by her urologist and was changed by her visiting nurse 2 days ago, Last night started having burning and bleeding from vaginal area. pt reports bleeding around quintana site. c/o lower abd pain. Quintana was changed in ED, draining, hematuria Urologist: Dr. Zakiya Price ([place]) PCP: Dr. 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, afib (on eliquis), CHF PAST SURGICAL HISTORY: Social History: Smoking: Alcohol: Drugs: Family History: Allergies No Known Allergies Allergy (Verified 02/20/19 11:51) HOME MEDICATIONS: Home Medications Medication Instructions Recorded Apixaban [Eliquis -] 5 mg PO BID tablet 04/19/16 Acetaminophen [Tylenol .Regular 650 mg PO Q6H PRN tablet 03/06/18 Strength -] Albuterol 2.5/Ipratropium 0.5 1 amp NEB RTID amp 03/06/18 [Duoneb -] Duloxetine HCl [Cymbalta -] 60 mg PO DAILY 08/17/18 Gabapentin [Neurontin -] 300 mg PO BID 08/17/18 Lactobacillus Acidophilus [Bacid -] 1 each PO BID 08/17/18 Lasix - 80 mg PO DAILY 08/17/18 Metoprolol Tartrate [Lopressor] 100 mg PO BID 08/17/18 Oxycodone HCl [Oxycontin] 10 mg PO BID PRN 08/17/18 Potassium Chloride [Klor-Con] 20 meq PO DAILY 08/17/18 Quinapril HCl [Accupril] 10 mg PO DAILY 08/17/18 Sulfamethoxazole/Trimethoprim 1 tab PO BID #14 tablet 08/17/18 [Bactrim Ds -] REVIEW OF SYSTEMS CONSTITUTIONAL: Absent: fever, chills, diaphoresis, generalized weakness, malaise, loss of appetite, weight change HEENT: Absent: rhinorrhea, nasal congestion, throat pain, throat swelling, difficulty swallowing, mouth swelling, ear pain, eye pain, visual changes CARDIOVASCULAR: Absent: chest pain, syncope, palpitations, irregular heart rate, lightheadedness , peripheral edema RESPIRATORY: Absent: cough, shortness of breath, dyspnea with exertion, orthopnea, wheezing, stridor, hemoptysis GASTROINTESTINAL: Absent: abdominal pain, abdominal distension, nausea, vomiting, diarrhea, constipation, melena, hematochezia GENITOURINARY: +bleeding, pain, Absent: urgency, hesitancy, hematuria, flank pain, genital pain MUSCULOSKELETAL: Absent: myalgia, arthralgia, joint swelling, back pain, neck pain SKIN: Absent: rash, itching, pallor HEMATOLOGIC/IMMUNOLOGIC: Absent: easy bleeding, easy bruising, lymphadenopathy, frequent infections ENDOCRINE: Absent: unexplained weight gain, unexplained weight loss, heat intolerance, cold intolerance NEUROLOGIC: Absent: headache, focal weakness or paresthesias, dizziness, unsteady gait, seizure, mental status changes, bladder or bowel incontinence PSYCHIATRIC: Absent: anxiety, depression, suicidal or homicidal ideation, hallucinations. PHYSICAL EXAMINATION Vital Signs - 24 hr 02/20/19 11:45 Temperature 98.5 F Pulse Rate 105 H Respiratory 16 Rate Blood Pressure 170/121 H O2 Sat by Pulse 100 Oximetry (%) GENERAL: Awake, alert, and fully oriented, in no acute distress. HEAD: Normal with no signs of trauma. EYES: Pupils equal, round and reactive to light, extraocular movements intact, sclera anicteric, conjunctiva clear. No lid lag. EARS, NOSE, THROAT: Ears normal, nares patent, oropharynx clear without exudates. Moist mucous membranes. NECK: Normal range of motion, supple without lymphadenopathy, JVD, or masses. LUNGS: Breath sounds equal, clear to auscultation bilaterally. No wheezes, and no crackles. No accessory muscle use. HEART: irregular rate and rhythm, no, rub or gallop. ABDOMEN: Soft, tender, not distended, normoactive bowel sounds, no guarding, no rebound, no masses. No hepatomegaly or splenomegaly. MUSCULOSKELETAL: Normal range of motion at all joints. No bony deformities or tenderness. No CVA tenderness. UPPER EXTREMITIES: 2+ pulses, warm, well-perfused. No cyanosis. No clubbing. No peripheral edema. LOWER EXTREMITIES: 2+ pulses, warm, well-perfused. No calf tenderness. No peripheral edema. NEUROLOGICAL: Cranial nerves II-XII intact. Normal speech. Normal gait. PSYCHIATRIC: Cooperative. Good eye contact. Appropriate mood and affect. SKIN: Warm, dry, normal turgor, no rashes or lesions noted, normal capillary refill. Laboratory Results - last 24 hr 02/20/19 02/20/19 02/20/19 12:31 12:31 12:31 WBC 8.8 RBC 4.19 Hgb 13.9 Hct 40.9 MCV 97.6 H MCH 33.1 MCHC 33.9 RDW 14.0 Plt Count 170 MPV 8.6 Absolute Neuts (auto) 7.4 Neutrophils % 83.7 H D Lymphocytes % 8.2 D Monocytes % 6.3 Eosinophils % 0.4 Basophils % 1.4 Nucleated RBC % 0 PT with INR 14.60 H INR 1.23 H PTT (Actin FS) 36.6 H Sodium Potassium Chloride Carbon Dioxide Anion Gap BUN Creatinine Creat Clearance w eGFR Random Glucose Calcium Total Bilirubin AST ALT Alkaline Phosphatase Total Protein Albumin Urine Color Red Urine Appearance Turbid Urine pH >= 9.0 H Ur Specific [place] 1.015 Urine Protein 3+ H Urine Glucose (UA) Trace Urine Ketones 2+ H Urine Blood 3+ H Urine Nitrite Positive Urine Bilirubin 3+ H Urine Urobilinogen >=8.0 e.u./dl H Ur Leukocyte Esterase 3+ H Urine RBC (Auto) >100 Urine Bacteria (Auto) 1+ 02/20/19 12:31 WBC RBC Hgb Hct MCV MCH MCHC RDW Plt Count MPV Absolute Neuts (auto) Neutrophils % Lymphocytes % Monocytes % Eosinophils % Basophils % Nucleated RBC % PT with INR INR PTT (Actin FS) Sodium 135 L Potassium 3.8 Chloride 101 Carbon Dioxide 25 Anion Gap 9 BUN 22 H Creatinine 0.6 Creat Clearance w eGFR 95.01 Random Glucose 121 H Calcium 10.0 Total Bilirubin 0.7 AST 27 ALT 17 Alkaline Phosphatase 84 Total Protein 7.2 Albumin 3.7 Urine Color Urine Appearance Urine pH Ur Specific [place] Urine Protein Urine Glucose (UA) Urine Ketones Urine Blood Urine Nitrite Urine Bilirubin Urine Urobilinogen Ur Leukocyte Esterase Urine RBC (Auto) Urine Bacteria (Auto) ASSESSMENT/PLAN: Kristina Dela Cruz is a 83 yr old F, medical condition urinary retention, 2/2 spinal stenosis, with chronic quintana, Afib, on eliquis, admitted for Admitting Diagnosis UTI Chronic Problems Afib Spinal stenosis Urinary retention #UTI, hematuria-hx of MDR, chronic quintana -UA 3+leuk, -ID consulted in ED- ampicillin and fortaz ordered -Urine cx pending -Lactic wnl -quintana changed in ED -IVF -monitor CBC #Afib #CHF -EKG ordered -denies chest pain, sob -records reviewed from 03/10-CHF, started on lasix -resume home med-BB,ELOINA, lasix 80 mg -gentle IVF for today -monitor for fluid overload -eliquis on hold #Spinal stenosis -on neurontin, oxycodone Dispo: requires inpatient treatment Visit type - Emergency Visit Emergency Visit: Yes Care time: The patient presented to the Emergency Department on the above date and was hospitalized for further evaluation of their emergent condition. - New Patient This patient is new to me today: Yes Date on this admission: 02/20/19 - Critical Care Critical Care patient: No
[2019-02-20] MEDS ORDERED: AMPICILLIN SODIUM 2 GM VIAL ONE (15:11)
[2019-02-20] MEDS ORDERED: SODIUM CHLORIDE 1,000 ML IV SCH (15:15)
[2019-02-20] MEDS ORDERED: oxyCODONE HCL 5 MG TABLET PO PRN (15:37)
[2019-02-20 22:04] LABS: HEMATOCRIT 36.6 % (32.4-45.2); HEMOGLOBIN 12.5 GM/dL (10.7-15.3); MCHC 34.1 g/dl (32.0-36.0); MEAN CELL VOLUME 96.9 fl (80-96); MEAN PLT VOLUME 8.3 fl (7.5-11.1); PLATELET COUNT 168 K/MM3 (134-434); RBC 3.77 M/mm3 (3.60-5.2); WHITE BLOOD COUNT 6.5 K/mm3 (4.0-10.0)
[2019-02-20] MEDS: LACTOBACILLUS ACIDOPHILUS 1 TABLET PO SCH (22:37)
[2019-02-20] MEDS: METOPROLOL TARTRATE 50 MG TABLET (FP) PO SCH (22:38)
[2019-02-20] MEDS: GABAPENTIN 300 MG CAPSULE (FP) PO SCH (22:38)
[2019-02-21 05:52] LABS: EOS % 1.5 % (0-4.5); HEMATOCRIT 36.3 % (32.4-45.2); LYMPH % 23.3 % (8-40); MCH 32.3 pg (25.7-33.7); MCHC 33.1 g/dl (32.0-36.0); MEAN CELL VOLUME 97.7 fl (80-96); MEAN PLT VOLUME 8.5 fl (7.5-11.1); MONO % 15.4 % (3.8-10.2); NEUT % 57.8 % (42.8-82.8); PLATELET COUNT 155 K/MM3 (134-434); RBC 3.72 M/mm3 (3.60-5.2); RDW 13.9 % (11.6-15.6); WHITE BLOOD COUNT 5.4 K/mm3 (4.0-10.0)
[2019-02-21 06:19] LABS: ALK PHOS 66 U/L (45-117); ANION GAP 7 MMOL/L (8-16); BILIRUBIN,TOTAL 0.7 mg/dL (0.2-1); BLOOD UREA NITROGEN 21 mg/dL (7-18); CALCIUM 9.3 mg/dL (8.5-10.1); CHLORIDE 104 mmol/L (98-107); CO2 28 mmol/L (21-32); CREATININE 0.6 mg/dL (0.55-1.3); GLUCOSE,RANDOM 106 mg/dL (74-106); MAGNESIUM 2.2 mg/dL (1.8-2.4); POTASSIUM 3.4 mmol/L (3.5-5.1); SGOT/AST 21 U/L (15-37); SGPT/ALT 15 U/L (13-61); SODIUM 138 mmol/L (136-145); TOT PROT 6.1 g/dl (6.4-8.2)
[2019-02-21] MEDS ORDERED: POTASSIUM CHLORIDE ORAL LIQUID 20 MEQ/15 ML PO ONE (09:40)
[2019-02-21] MEDS: QUINAPRIL HCL 10 MG TABLET (FP) PO SCH (09:57)
[2019-02-21] MEDS: FUROSEMIDE 40 MG TABLET (FP) PO SCH (09:58)
[2019-02-21] MEDS: LACTOBACILLUS ACIDOPHILUS 1 TABLET PO SCH ×2 (09:58→22:00)
[2019-02-21] MEDS: DULoxetine HCL 30 MG CAPSULE.DR (FP) PO SCH (09:58)
--- NOTE | 2019-02-21 09:58 | EKG ---
Test Reason : Blood Pressure : / mmHG Vent. Rate : 105 BPM Atrial Rate : 097 BPM P-R Int : 000 ms QRS Dur : 072 ms QT Int : 352 ms P-R-T Axes : 000 052 -41 degrees QTc Int : 465 ms ATRIAL FIBRILLATION WITH RAPID VENTRICULAR RESPONSE ABNORMAL ECG WHEN COMPARED WITH ECG OF 04-MAR-2018 09:15, T WAVE VARIATION Confirmed by CLAIR VALDEZ MD ([id number]) on 02/21/2019 9:58:43 AM Referred By: Confirmed By:CLAIR VALDEZ MD
[2019-02-21] MEDS: METOPROLOL TARTRATE 50 MG TABLET (FP) PO SCH ×2 (09:59→22:01)
[2019-02-21] MEDS: GABAPENTIN 300 MG CAPSULE (FP) PO SCH ×2 (09:59→22:01)
[2019-02-21] MEDS ORDERED: PIPERACILLIN/TAZOB 3.375 GM 3.375 GM in DEXTROSE 5%-WATER - 50 ML IVPB SCH (10:00)
[2019-02-21] MEDS ORDERED: PIPERACILLIN/TAZOB 3.375 GM 3.375 GM/50 ML BAG IVPB ONE (10:01)
[2019-02-21] MEDS ORDERED: ACETAMINOPHEN 325 MG TABLET (FP) ONE (10:01)
[2019-02-21] MEDS: LACTATED RINGERS SOLUTION 1,000 ML/1,000 ML INFUS.BAG IV SCH ×2 (10:04→22:01)
[2019-02-21] MEDS: PIPERACILLIN/TAZOB 3.375 GM 3.375 GM in DEXTROSE 5%-WATER - 50 ML IVPB SCH ×2 (10:51→10:52)
[2019-02-21] MEDS ORDERED: cefTAZidime PENTAHYDRATE 1 GM/50ML PRE-DOCKED (RESTRICTED TO ID) IVPB SCH (11:15)
--- NOTE | 2019-02-21 11:18 | PN ---
Progress Note (short form) - Note Progress Note: ID consult dictated imp/reccd 83 yo female admitted from home she has 24 hour aides at home and lives with her nonambulatory due to spinal stenosis, has had an indwelling quintana for the last one year changed monthly by VNS developed pain in pelvic area and hematuria after most recent quintana change came to ED with gross hematuria yesterday, quintana was found to be in urethra, was removed and replaced- had blood clots and gross hematuria no fevers or chills started on fortaz/amp based on prior urine culture results continue to have gross hematuria gross hematuria quintana repositioned 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 continue fortaz and amp cultures pending complains that quintana is leaking- urology eval neurogenic bladder history of spinal stenosis afib on eliquis contact isolation for VRE Problem List - Problems (1) Gross hematuria Code(s): R31.0 - GROSS HEMATURIA (2) UTI (urinary tract infection) Code(s): N39.0 - URINARY TRACT INFECTION, SITE NOT SPECIFIED (3) Neurogenic bladder Code(s): N31.9 - NEUROMUSCULAR DYSFUNCTION OF BLADDER, UNSPECIFIED (4) Afib Code(s): I48.91 - UNSPECIFIED ATRIAL FIBRILLATION (5) VRE (vancomycin resistant enterococcus) culture positive Code(s): Z22.39 - CARRIER OF OTHER SPECIFIED BACTERIAL DISEASES
[2019-02-21] MEDS ORDERED: PT OWN MED DRAWER 7, Y5N ONE (12:38)
[2019-02-21] MEDS: AMPICILLIN - 1 GM in SODIUM CHLORIDE 100 ML IVPB SCH (12:38)
--- NOTE | 2019-02-21 12:38 | CONS ---
DATE OF CONSULTATION: DATE OF DICTATION: 02/21/2019 REQUESTED BY: Hospitalist service. This is an 83-year-old woman with a history of spinal stenosis. She has a history of atrial fibrillation, on Eliquis. She is non-ambulatory and has a chronic Hilliard catheter that is changed monthly by VNS. She lives at home with her and has 24-hour aid, and she came to the emergency room complaining of pelvic pain and gross hematuria that started after she had a Hilliard changed by the nurse at home. In the ER, the Hilliard was noted to be in the urethra. It was removed. She had multiple clots and gross hematuria. The Hilliard was replaced, and I was asked to see her for possible UTI. She has a history of prior VREF and Pseudomonas. She denies any fevers and chills and otherwise feels well. She notes even now she feels like the Hilliard is leaking and is not in appropriately. Her past medical history is notable for hypertension, urinary retention secondary to spinal stenosis, atrial fibrillation, on Eliquis. She has never had any surgery. SOCIAL HISTORY: No history of cigarette, alcohol, or substance use. She lives with her and she has 24-hour aid at home. She does not ambulate. She has no known drug allergies. Her medications at home include apixaban, DuoNeb, Cymbalta, Neurontin, Bacid, Lopressor, OxyContin, K-Betsy, Accupril. REVIEW OF SYSTEMS: She reports she has not recently been on antibiotics for UTI; it has been several months. Her PMD is Dr. Calle and her urologist is Dr. Sher, in [place]. PHYSICAL EXAMINATION: General: She is awake and alert. Vital Signs: Temperature is 98.6. Pulse 112. Blood pressure 150/84. Respiratory rate 16. She is saturating 95%. HEENT: Normocephalic. Her eyes are anicteric. Neck: Supple. Lungs: Clear to auscultation. Heart: Regular rate and rhythm. Abdomen: Soft, nontender. Extremities: Without edema. Genitourinary: She has a Hilliard and she has gross hematuria. White count is 5.4, hemoglobin 12, platelets 155. BUN 21 and creatinine 0.6. LFTs are normal. Urinalysis has 3+ leukocyte esterase, greater than 100 red cells, and blood and urine cultures are pending. Urine culture is growing a group B streptococcus as well as a non-lactose textile worker. She had a chest x-ray that showed a large heart and a hiatal hernia. In summary, this is an 83-year-old woman with gross hematuria secondary to Hilliard that was not in place. She has evidence of UTI. She has chronic Hilliard due to neurogenic bladder, history of atrial fibrillation, on Eliquis, and prior history of VRE culture positivity. I spoke with the ER yesterday. We started ceftazidime and ampicillin, which I would continue at this time. Because she complains that the Hilliard is leaking, would have Urology evaluate her. And lastly, she needs contact isolation for her prior VRE. Further recommendations to follow. SUSIE SILVA M.D. AMANDA/[id number]
[2019-02-21] MEDS: CEFTAZIDIME PENTAHYDRATE 1 GM in DEXTROSE 5%-WATER - 50 ML IVPB SCH (12:48)
[2019-02-21 17:58] LABS: BASO % 4.2 % (0-2.0); EOS % 3.4 % (0-4.5); HEMOGLOBIN 11.2 GM/dL (10.7-15.3); LYMPH % 22.5 % (8-40); MCH 33.5 pg (25.7-33.7); MEAN CELL VOLUME 98.5 fl (80-96); MEAN PLT VOLUME 8.4 fl (7.5-11.1); MONO % 16.6 % (3.8-10.2); NEUT % 53.3 % (42.8-82.8); PLATELET COUNT 151 K/MM3 (134-434); RBC 3.35 M/mm3 (3.60-5.2); RDW 14.4 % (11.6-15.6); WHITE BLOOD COUNT 4.4 K/mm3 (4.0-10.0)
[2019-02-21 18:49] VITALS: BMI 28.1
[2019-02-21] MEDS ORDERED: PIPERACILLIN/TAZOBACTAM 3.375 GM VIAL IVPB ONE (20:13)
[2019-02-21] MEDS ORDERED: DEXTROSE 5%-WATER - 50 ML IVPB ONE (20:14)
--- NOTE | 2019-02-21 21:39 | PN ---
Physical Exam: SUBJECTIVE: Patient seen and examined -pt admitted for + UA, gross hematuria and suprapubic pain -pt with worsening hematuria, CT A/P done revealing A moderate amount of clotted blood is seen within the urinary bladder lumen. OBJECTIVE: Vital Signs Period Temp Pulse Resp BP Sys/Miller Pulse Ox Last 24 Hr 97.6 F-98.6 F 68-112 16-20 108-150/60-89 95-99 GENERAL: The patient is awake, alert, and fully oriented, in no acute distress. HEAD: Normal with no signs of trauma. EYES: PERRL, sclera anicteric, conjunctiva clear. ENT: nares patent, oropharynx clear without exudates, moist mucous membranes. NECK: Trachea midline, full range of motion, supple. LUNGS: Breath sounds equal, clear to auscultation bilaterally, no wheezes, no crackles, no accessory muscle use. HEART: Regular rate and rhythm, S1, S2 without murmur, rub or gallop. ABDOMEN: Soft, +mild tenderness suprapubic region, nondistended, normoactive bowel sounds, no guarding, : quintana in place with dark red blood, diaper with moderate amount of blood EXTREMITIES: 2+ pulses, warm, well-perfused, no edema. NEUROLOGICAL: Normal speech, gait not observed. MSK: full ROM x 4 PSYCH: Normal mood, normal affect. SKIN: Warm, dry, normal turgor, no rashes or lesions noted Laboratory Results - last 24 hr 02/20/19 02/21/19 02/21/19 21:59 05:10 05:10 WBC 6.5 5.4 RBC 3.77 3.72 Hgb 12.5 12.0 Hct 36.6 36.3 MCV 96.9 H 97.7 H MCH 33.0 32.3 MCHC 34.1 33.1 RDW 14.0 13.9 Plt Count 168 155 MPV 8.3 8.5 Absolute Neuts (auto) 3.1 Neutrophils % 57.8 D Lymphocytes % 23.3 D Monocytes % 15.4 H D Eosinophils % 1.5 D Basophils % 2.0 Nucleated RBC % 0 Sodium 138 Potassium 3.4 L Chloride 104 Carbon Dioxide 28 Anion Gap 7 L BUN 21 H Creatinine 0.6 Creat Clearance w eGFR 95.01 Random Glucose 106 Calcium 9.3 Magnesium 2.2 Total Bilirubin 0.7 AST 21 ALT 15 Alkaline Phosphatase 66 Total Protein 6.1 L Albumin 3.0 L 02/21/19 17:40 WBC 4.4 RBC 3.35 L Hgb 11.2 Hct 33.0 MCV 98.5 H MCH 33.5 MCHC 34.0 RDW 14.4 Plt Count 151 MPV 8.4 Absolute Neuts (auto) 2.4 Neutrophils % 53.3 Lymphocytes % 22.5 Monocytes % 16.6 H Eosinophils % 3.4 D Basophils % 4.2 H Nucleated RBC % 0 Sodium Potassium Chloride Carbon Dioxide Anion Gap BUN Creatinine Creat Clearance w eGFR Random Glucose Calcium Magnesium Total Bilirubin AST ALT Alkaline Phosphatase Total Protein Albumin Active Medications Generic Name Dose Route Start Last Admin Trade Name Freq PRN Reason Stop Dose Admin Acetaminophen 650 mg 02/20/19 15:04 02/21/19 10:04 Tylenol - PO 650 mg Q6H PRN Administration PAIN LEVEL 1-5 Duloxetine HCl 60 mg 02/21/19 10:00 02/21/19 09:58 Cymbalta - PO 60 mg DAILY ZOILA Administration Furosemide 80 mg 02/21/19 10:00 02/21/19 09:58 Lasix - PO 80 mg DAILY ZOILA Administration Gabapentin 300 mg 02/20/19 22:00 02/21/19 09:59 Neurontin - PO 300 mg BID ZOILA Administration Lactated Ringer's 1,000 ml in 1,000 mls @ 75 mls/hr 02/21/19 09:45 02/21/19 10:04 Lactated Ringers Solution IV 75 mls/hr ASDIR ZOILA Administration Piperacillin Sod/Tazobactam 50 mls @ 100 mls/hr 02/21/19 10:45 02/21/19 10:52 Sod 3.375 gm/ Dextrose IVPB 02/22/19 02:29 Not Given Q8H-IV ZOILA Protocol Ampicillin Sodium 1 gm/ Sodium 100 mls @ 200 mls/hr 02/21/19 11:15 02/21/19 12:38 Chloride IVPB 200 mls/hr Q8H-IV ZOILA Administration Protocol Ceftazidime 1 gm/ Dextrose 50 mls @ 100 mls/hr 02/21/19 11:45 02/21/19 12:48 IVPB 100 mls/hr Q8H-IV ZOILA Administration Lactobacillus Acidophilus 1 tab 02/20/19 22:00 04/01/19 09:58 Bacid - PO 1 tab BID ZOILA Administration Metoprolol Tartrate 100 mg 02/20/19 22:00 02/21/19 09:59 Lopressor - PO 100 mg BID ZOILA Administration Quinapril HCl 10 mg 02/21/19 10:00 02/21/19 09:57 Accupril - PO 10 mg DAILY ZOILA Administration CT abd/pelvis 02/21/2019 Impression: A moderate amount of clotted blood is seen within the urinary bladder lumen. Correlate with cystoscopy. A Quintana catheter is seen in place. The current urinary bladder volume is approximately 500 mL - ? partially occluded Quintana catheter or clamped catheter. There is partial imaging of an approximately 6 cm spherical thick-walled soft tissue structure containing air centrally along the right lateral border of the lower thoracic esophagus adjacent to the esophageal hiatus - ? A component of a large hiatal hernia versus possible intrinsic pulmonary pathology. Correlate with chest CT. Apparent mild nonspecific left adrenal enlargement. Correlate with 2 month follow-up CT to evaluate stability and lack of development pathology. Extensive colonic diverticulosis is noted without evidence of acute diverticulitis. Reported By: Jarrell Kennedy MD 02/21/[address] chest: 02/21/2019 Impression: 1. Large hiatal hernia with intrathoracic stomach. 2. Chronic lung disease with no acute pathology within the chest. Please see above discussion. Reported By: Rik Herrera MD 02/21/19 1825 CXR 02/20/2019: impression: large heart, hiatal hernia. No acute chest pathology ASSESSMENT/PLAN:83yo female from home with a chronic indwelling quintana catheter- admitted for UTI with gross hematura but no clots in quintana. UTI -ID following -continue fortaz and ampicillin -awaiting UCX results Hematuria 60ml flush quintana q6hr monitor for clots Urology: Dr. Aguirre consulted HTN Accupril 10mg daily metoprolol 100mg BID lasix 80mg once daily afib -hold eliquis -daily EKGs Depression -cymbalta 60mg daily chronic pain -PRN tylenol -neurontin 300mg BID DISPO: full code Problem List - Problems (1) CHF (congestive heart failure) Code(s): I50.9 - HEART FAILURE, UNSPECIFIED (2) Hiatal hernia Code(s): K44.9 - DIAPHRAGMATIC HERNIA WITHOUT OBSTRUCTION OR GANGRENE (3) Gross hematuria Code(s): R31.0 - GROSS HEMATURIA (4) UTI (urinary tract infection) Code(s): N39.0 - URINARY TRACT INFECTION, SITE NOT SPECIFIED (5) Afib Code(s): I48.91 - UNSPECIFIED ATRIAL FIBRILLATION (6) Urinary retention Code(s): R33.9 - RETENTION OF URINE, UNSPECIFIED Visit type - Emergency Visit Emergency Visit: Yes ED Registration Date: 02/20/19 Care time: The patient presented to the Emergency Department on the above date and was hospitalized for further evaluation of their emergent condition. - New Patient This patient is new to me today: Yes Date on this admission: 02/21/19 - Critical Care Critical Care patient: No - Discharge Referral Referred to [facility] Med P.C.: No
[2019-02-22] MEDS ORDERED: PIPERACILLIN/TAZOBACTAM 3.375 GM VIAL IVPB ONE (00:48)
[2019-02-22] MEDS ORDERED: DEXTROSE 5%-WATER - 50 ML IVPB ONE (00:48)
[2019-02-22] MEDS: AMPICILLIN - 1 GM in SODIUM CHLORIDE 100 ML IVPB SCH ×4 (02:17→19:09)
[2019-02-22] MEDS: CEFTAZIDIME PENTAHYDRATE 1 GM in DEXTROSE 5%-WATER - 50 ML IVPB SCH ×4 (02:41→18:39)
[2019-02-22 07:00] LABS: HEMATOCRIT 30.2 % (32.4-45.2); HEMOGLOBIN 10.2 GM/dL (10.7-15.3); MCH 33.1 pg (25.7-33.7); MCHC 33.7 g/dl (32.0-36.0); MEAN PLT VOLUME 8.5 fl (7.5-11.1); PLATELET COUNT 129 K/MM3 (134-434); RBC 3.08 M/mm3 (3.60-5.2); RDW 14.4 % (11.6-15.6); WHITE BLOOD COUNT 4.5 K/mm3 (4.0-10.0)
[2019-02-22 07:47] LABS: ALBUMIN 2.7 g/dl (3.4-5.0); ALK PHOS 58 U/L (45-117); ANION GAP 5 MMOL/L (8-16); BILIRUBIN,TOTAL 0.4 mg/dL (0.2-1); BLOOD UREA NITROGEN 15 mg/dL (7-18); CALCIUM 8.9 mg/dL (8.5-10.1); CHLORIDE 109 mmol/L (98-107); CO2 28 mmol/L (21-32); CREATININE 0.5 mg/dL (0.55-1.3); GLUCOSE,RANDOM 96 mg/dL (74-106); POTASSIUM 3.5 mmol/L (3.5-5.1); SGOT/AST 22 U/L (15-37); SGPT/ALT 13 U/L (13-61); SODIUM 141 mmol/L (136-145); TOT PROT 5.6 g/dl (6.4-8.2)
[2019-02-22] MEDS ORDERED: PT OWN MED DRAWER 7, Y5N ONE ×2 (11:25→12:25)
[2019-02-22] MEDS: GABAPENTIN 300 MG CAPSULE (FP) PO SCH ×2 (11:27→21:32)
[2019-02-22] MEDS: FUROSEMIDE 40 MG TABLET (FP) PO SCH (11:27)
[2019-02-22] MEDS: DULoxetine HCL 30 MG CAPSULE.DR (FP) PO SCH (11:28)
[2019-02-22] MEDS: QUINAPRIL HCL 10 MG TABLET (FP) PO SCH (11:28)
[2019-02-22] MEDS: METOPROLOL TARTRATE 50 MG TABLET (FP) PO SCH ×2 (11:28→21:32)
[2019-02-22] MEDS: LACTOBACILLUS ACIDOPHILUS 1 TABLET PO SCH ×2 (11:28→21:32)
[2019-02-22] MEDS: LACTATED RINGERS SOLUTION 1,000 ML/1,000 ML INFUS.BAG IV SCH (14:38)
--- NOTE | 2019-02-22 14:43 | EKG ---
Test Reason : Blood Pressure : / mmHG Vent. Rate : 072 BPM Atrial Rate : 097 BPM P-R Int : 000 ms QRS Dur : 074 ms QT Int : 386 ms P-R-T Axes : 000 049 -25 degrees QTc Int : 422 ms ATRIAL FIBRILLATION NONSPECIFIC T WAVE ABNORMALITY ABNORMAL ECG WHEN COMPARED WITH ECG OF 20-FEB-2019 17:18, NO SIGNIFICANT CHANGE WAS FOUND Confirmed by Felix Bray ([id number]) on 02/22/2019 2:42:57 PM Referred By: GRACE ARMENTA Confirmed By:Felix Bray
--- NOTE | 2019-02-22 15:52 | PN ---
Progress Note (short form) - Note Progress Note: continues to have gross hematuria no complaints Vital Signs Period Temp Pulse Resp BP Sys/Miller Pulse Ox Last 24 Hr 97.6 F-98.7 F 68-90 16-20 124-177/75-105 98-98 cor-rrr lungs clear abd soft,nt ext no edema quintana with gross hematuria CBC, BMP 02/22/19 06:00 02/22/19 06:00 Microbiology 02/20/19 15:01 Blood - Peripheral Venous Blood Culture - Preliminary NO GROWTH OBTAINED AFTER 48 HOURS, INCUBATION TO CONTINUE FOR 3 DAYS. 02/20/19 15:01 Blood - Peripheral Venous Blood Culture - Preliminary NO GROWTH OBTAINED AFTER 48 HOURS, INCUBATION TO CONTINUE FOR 3 DAYS. 02/20/19 12:31 Urine - Urine Quintana Urine Culture - Preliminary Group D Strep Or Entero Coccus Pseudomonas Aeruginosa a/p gross hematuria quintana repositioned 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 continue fortaz and amp awaiting urology evaluation neurogenic bladder history of spinal stenosis afib on eliquis contact isolation for VRE Problem List - Problems (1) Gross hematuria Code(s): R31.0 - GROSS HEMATURIA (2) UTI (urinary tract infection) Code(s): N39.0 - URINARY TRACT INFECTION, SITE NOT SPECIFIED (3) Neurogenic bladder Code(s): N31.9 - NEUROMUSCULAR DYSFUNCTION OF BLADDER, UNSPECIFIED (4) Afib Code(s): I48.91 - UNSPECIFIED ATRIAL FIBRILLATION (5) VRE (vancomycin resistant enterococcus) culture positive Code(s): Z22.39 - CARRIER OF OTHER SPECIFIED BACTERIAL DISEASES
--- NOTE | 2019-02-22 18:44 | CON.GU ---
Consult Consult Specialty:: Referred by:: Medicine Reason for Consultation:: 83 yo with hematuria - History of Present Illness Chief Complaint: hematuria History of Present Illness: 83 year old female with a history of spinal stenosis and neurogenic bladder with a chronically indwelling quintana catheter. She is on Eliquis for Afib. After a catheter change on 02/18 she developed gross hematuria. Her daughter described worsening problems with the catheter recently. - History Source History Provided By: Patient, Family Member Limitations to Obtaining History: No Limitations - Past Medical History Renal/: Yes: Hematuria, UTI ...: No - Alcohol/Substance Use Hx Alcohol Use: No - Smoking History Smoking history: Never smoked Have you smoked in the past 12 months: No If you are a former smoker, when did you quit?: 30 yrs Home Medications - Allergies Allergies/Adverse Reactions: Allergies Allergy/AdvReac Type Severity Reaction Status Date / Time No Known Allergies Allergy Verified 02/20/19 11:51 - Home Medications Home Medications: Ambulatory Orders Apixaban [Eliquis -] 5 mg PO BID tablet 04/19/16 Acetaminophen [Tylenol .Regular Strength -] 650 mg PO Q6H PRN tablet 03/06/18 Albuterol 2.5/Ipratropium 0.5 [Duoneb -] 1 amp NEB RTID amp 03/06/18 Duloxetine HCl [Cymbalta -] 60 mg PO DAILY 08/17/18 Gabapentin [Neurontin -] 300 mg PO BID 08/17/18 Lactobacillus Acidophilus [Bacid -] 1 each PO BID 08/17/18 Lasix - 80 mg PO DAILY 08/17/18 Metoprolol Tartrate [Lopressor] 100 mg PO BID 08/17/18 Oxycodone HCl [Oxycontin] 10 mg PO BID PRN 08/17/18 Potassium Chloride [Klor-Con] 20 meq PO DAILY 08/17/18 Quinapril HCl [Accupril] 10 mg PO DAILY 08/17/18 Sulfamethoxazole/Trimethoprim [Bactrim Ds -] 1 tab PO BID #14 tablet 08/17/18 Review of Systems - Review of Systems Genitourinary: reports: Dysuria, Hematuria Physical Exam- Vital Signs: Vital Signs Temperature 98 F 02/22/19 17:06 Pulse Rate 73 02/22/19 17:06 Respiratory Rate 20 02/22/19 17:06 Blood Pressure 140/79 02/22/19 17:06 O2 Sat by Pulse Oximetry (%) 98 02/22/19 09:00 Renal/: Yes: Quintana Present, Hematuria, Incontinence, Other (patulous urethra) Labs: CBC, BMP 02/22/19 06:00 02/22/19 06:00 Imaging - Results Cat Scan: Report Reviewed Problem List - Problems (1) Gross hematuria Assessment/Plan: CBI cath placed. irrigated to clear. hold off on eliquis for now. Code(s): R31.0 - GROSS HEMATURIA (2) Neurogenic bladder Assessment/Plan: continue abx. discussed option of suprapubic cath and/or interstim neuromodulation Code(s): N31.9 - NEUROMUSCULAR DYSFUNCTION OF BLADDER, UNSPECIFIED
--- NOTE | 2019-02-22 18:48 | PN ---
Physical Exam: SUBJECTIVE: Patient seen and examined -pt reports improved suprapubic pain -quintana continues to drain bloody urine- awaiting urology input -H/H stable -hiatal hernia with intrathoracic stomach on CT, awaiting thoracic surg input OBJECTIVE: Vital Signs Period Temp Pulse Resp BP Sys/Miller Pulse Ox Last 24 Hr 97.9 F-98.7 F 72-90 16-20 124-177/75-105 98-98 GENERAL: The patient is awake, alert, and fully oriented, in no acute distress. HEAD: Normal with no signs of trauma. EYES: PERRL, sclera anicteric, conjunctiva clear. ENT: nares patent, oropharynx clear without exudates, moist mucous membranes. NECK: Trachea midline, full range of motion, supple. LUNGS: Breath sounds equal, clear to auscultation bilaterally, no wheezes, no crackles, no accessory muscle use. HEART: Regular rate and rhythm, S1, S2 without murmur, rub or gallop. ABDOMEN: Soft, no tenderness, nondistended, normoactive bowel sounds, no guarding, : quintana in place with dark red blood, EXTREMITIES: 2+ pulses, warm, well-perfused, no edema. NEUROLOGICAL: Normal speech, gait not observed. MSK: full ROM x 4 PSYCH: Normal mood, normal affect. SKIN: Warm, dry, normal turgor, no rashes or lesions noted Laboratory Results - last 24 hr 02/22/19 02/22/19 06:00 06:00 WBC 4.5 RBC 3.08 L Hgb 10.2 L Hct 30.2 L MCV 98.0 H MCH 33.1 MCHC 33.7 RDW 14.4 Plt Count 129 L MPV 8.5 Sodium 141 Potassium 3.5 Chloride 109 H Carbon Dioxide 28 Anion Gap 5 L BUN 15 Creatinine 0.5 L Creat Clearance w eGFR 117.26 Random Glucose 96 Calcium 8.9 Magnesium 2.0 Total Bilirubin 0.4 AST 22 ALT 13 Alkaline Phosphatase 58 Total Protein 5.6 L Albumin 2.7 L Active Medications Generic Name Dose Route Start Last Admin Trade Name Freq PRN Reason Stop Dose Admin Acetaminophen 650 mg 02/20/19 15:04 02/21/19 10:04 Tylenol - PO 650 mg Q6H PRN Administration PAIN LEVEL 1-5 Duloxetine HCl 60 mg 02/21/19 10:00 02/22/19 11:28 Cymbalta - PO 60 mg DAILY ZOILA Administration Furosemide 80 mg 02/21/19 10:00 02/22/19 11:27 Lasix - PO 80 mg DAILY ZOILA Administration Gabapentin 300 mg 02/20/19 22:00 02/22/19 11:27 Neurontin - PO 300 mg BID ZOILA Administration Lactated Ringer's 1,000 ml in 1,000 mls @ 75 mls/hr 02/21/19 09:45 02/22/19 14:38 Lactated Ringers Solution IV 75 mls/hr ASDIR ZOILA Administration Ampicillin Sodium 1 gm/ Sodium 100 mls @ 200 mls/hr 02/21/19 11:15 02/22/19 12:26 Chloride IVPB 200 mls/hr Q8H-IV ZOILA Administration Protocol Ceftazidime 1 gm/ Dextrose 50 mls @ 100 mls/hr 02/21/19 11:45 02/22/19 18:39 IVPB 100 mls/hr Q8H-IV ZOILA Administration Lactobacillus Acidophilus 1 tab 02/20/19 22:00 02/22/19 11:28 Bacid - PO 1 tab BID ZOILA Administration Metoprolol Tartrate 100 mg 02/20/19 22:00 02/22/19 11:28 Lopressor - PO 100 mg BID ZOILA Administration Quinapril HCl 10 mg 02/21/19 10:00 02/22/19 11:28 Accupril - PO 10 mg DAILY ZOILA Administration ASSESSMENT/PLAN: 83yo female from home with a chronic indwelling quintana catheter - admitted for UTI with gross hematuria UTI -ID following -continue fortaz and ampicillin -awaiting UCX results -trend fever curve and WBCs Hematuria 60ml flush quintana q6hr monitor for clots Urology: Dr. Aguirre consulted - CBC cath placed for irrigation HTN Accupril 10mg daily metoprolol 100mg BID lasix 80mg once daily afib -hold eliquis -daily EKGs Depression -cymbalta 60mg daily chronic pain -PRN tylenol -neurontin 300mg BID DISPO: full code Problem List - Problems (1) CHF (congestive heart failure) Code(s): I50.9 - HEART FAILURE, UNSPECIFIED (2) Hiatal hernia Code(s): K44.9 - DIAPHRAGMATIC HERNIA WITHOUT OBSTRUCTION OR GANGRENE (3) Gross hematuria Code(s): R31.0 - GROSS HEMATURIA (4) UTI (urinary tract infection) Code(s): N39.0 - URINARY TRACT INFECTION, SITE NOT SPECIFIED (5) Afib Code(s): I48.91 - UNSPECIFIED ATRIAL FIBRILLATION (6) Urinary retention Code(s): R33.9 - RETENTION OF URINE, UNSPECIFIED Visit type - Emergency Visit Emergency Visit: Yes ED Registration Date: 02/20/19 Care time: The patient presented to the Emergency Department on the above date and was hospitalized for further evaluation of their emergent condition. - New Patient This patient is new to me today: No - Critical Care Critical Care patient: No - Discharge Referral Referred to [facility] No
[2019-02-23] MEDS ORDERED: PT OWN MED DRAWER 7, Y5N ONE ×5 (00:31→18:19)
[2019-02-23] MEDS: AMPICILLIN - 1 GM in SODIUM CHLORIDE 100 ML IVPB SCH ×3 (01:04→18:53)
[2019-02-23] MEDS: CEFTAZIDIME PENTAHYDRATE 1 GM in DEXTROSE 5%-WATER - 50 ML IVPB SCH ×3 (02:34→18:53)
[2019-02-23 06:44] LABS: HEMATOCRIT 32.7 % (32.4-45.2); HEMOGLOBIN 10.9 GM/dL (10.7-15.3); MCH 32.9 pg (25.7-33.7); MCHC 33.3 g/dl (32.0-36.0); MEAN CELL VOLUME 98.7 fl (80-96); MEAN PLT VOLUME 8.7 fl (7.5-11.1); PLATELET COUNT 155 K/MM3 (134-434); RBC 3.31 M/mm3 (3.60-5.2); RDW 14.4 % (11.6-15.6); WHITE BLOOD COUNT 5.2 K/mm3 (4.0-10.0)
[2019-02-23 07:45] LABS: ANION GAP 6 MMOL/L (8-16); BLOOD UREA NITROGEN 14 mg/dL (7-18); CALCIUM 8.6 mg/dL (8.5-10.1); CHLORIDE 105 mmol/L (98-107); CO2 30 mmol/L (21-32); CREATININE 0.6 mg/dL (0.55-1.3); GLUCOSE,RANDOM 97 mg/dL (74-106); POTASSIUM 3.7 mmol/L (3.5-5.1); SODIUM 141 mmol/L (136-145)
[2019-02-23] MEDS: DULoxetine HCL 30 MG CAPSULE.DR (FP) PO SCH (10:27)
[2019-02-23] MEDS: FUROSEMIDE 40 MG TABLET (FP) PO SCH (10:27)
[2019-02-23] MEDS: GABAPENTIN 300 MG CAPSULE (FP) PO SCH ×2 (10:27→21:50)
[2019-02-23] MEDS: LACTOBACILLUS ACIDOPHILUS 1 TABLET PO SCH ×2 (10:27→21:50)
[2019-02-23] MEDS: METOPROLOL TARTRATE 50 MG TABLET (FP) PO SCH ×2 (10:27→21:50)
[2019-02-23] MEDS: QUINAPRIL HCL 10 MG TABLET (FP) PO SCH (14:15)
--- NOTE | 2019-02-23 14:42 | PN ---
Progress Note (short form) - Note Progress Note: startred on irrigation by urology Vital Signs Period Temp Pulse Resp BP Sys/Miller Pulse Ox Last 24 Hr 98 F-98.1 F 73-80 20-20 140-161/79-102 98 cor-rrr llungs clear abd soft,nt ext no edema CBC, BMP 02/23/19 06:30 02/23/19 06:30 Microbiology 02/21/19 17:40 Rectal Swab VRE Culture - Final Vanco Resistant Enterococcus 02/20/19 12:31 Urine - Urine Hilliard Urine Culture - Final Vr Ec Faecalis Pseudomonas Aeruginosa 02/20/19 15:01 Blood - Peripheral Venous Blood Culture - Preliminary NO GROWTH OBTAINED AFTER 48 HOURS, INCUBATION TO CONTINUE FOR 3 DAYS. 02/20/19 15:01 Blood - Peripheral Venous Blood Culture - Preliminary NO GROWTH OBTAINED AFTER 48 HOURS, INCUBATION TO CONTINUE FOR 3 DAYS. a/p gross hematuria now with bladder irrigation UTI- continue antiibotics-ampicillin and fortaz- while on bladder irrigation neurogenic bladder history of spinal stenosis afib on eliquis contact isolation for VRE Problem List - Problems (1) Gross hematuria Code(s): R31.0 - GROSS HEMATURIA (2) UTI (urinary tract infection) Code(s): N39.0 - URINARY TRACT INFECTION, SITE NOT SPECIFIED (3) Neurogenic bladder Code(s): N31.9 - NEUROMUSCULAR DYSFUNCTION OF BLADDER, UNSPECIFIED (4) Afib Code(s): I48.91 - UNSPECIFIED ATRIAL FIBRILLATION (5) VRE (vancomycin resistant enterococcus) culture positive Code(s): Z22.39 - CARRIER OF OTHER SPECIFIED BACTERIAL DISEASES
--- NOTE | 2019-02-23 18:58 | PN ---
Physical Exam: SUBJECTIVE: Patient seen and examined at the bedside. mild suprapubic discomfort, otherwise, feels well. OBJECTIVE: on CBI, urine clear Vital Signs Period Temp Pulse Resp BP Sys/Miller Pulse Ox Last 24 Hr 98 F-98.8 F 76-81 18-20 102-161/57-102 98-98 GENERAL: The patient is awake, alert, and fully oriented, in no acute distress. HEAD: Normal with no signs of trauma. EYES: PERRL, sclera anicteric, conjunctiva clear. ENT: nares patent, oropharynx clear without exudates, moist mucous membranes. NECK: Trachea midline, full range of motion, supple. LUNGS: Breath sounds equal, clear to auscultation bilaterally, no wheezes, no crackles, no accessory muscle use. HEART: Regular rate and rhythm, S1, S2 without murmur, rub or gallop. ABDOMEN: Soft, no tenderness, nondistended, normoactive bowel sounds, no guarding, : quintana in place clear yellow urine EXTREMITIES: 2+ pulses, warm, well-perfused, no edema. - right foot drop, she is non ambulatory, WC dependent at home. NEUROLOGICAL: Normal speech, gait not observed. PSYCH: Normal mood, normal affect. SKIN: Warm, dry, normal turgor, no rashes or lesions noted Laboratory Results - last 24 hr 02/23/19 02/23/19 06:30 06:30 WBC 5.2 RBC 3.31 L Hgb 10.9 Hct 32.7 MCV 98.7 H MCH 32.9 MCHC 33.3 RDW 14.4 Plt Count 155 D MPV 8.7 Sodium 141 Potassium 3.7 Chloride 105 Carbon Dioxide 30 Anion Gap 6 L BUN 14 Creatinine 0.6 Creat Clearance w eGFR 95.01 Random Glucose 97 Calcium 8.6 Active Medications Generic Name Dose Route Start Last Admin Trade Name Freq PRN Reason Stop Dose Admin Acetaminophen 650 mg 02/20/19 15:04 02/21/19 10:04 Tylenol - PO 650 mg Q6H PRN Administration PAIN LEVEL 1-5 Duloxetine HCl 60 mg 02/21/19 10:00 02/23/19 10:27 Cymbalta - PO 60 mg DAILY ZOILA Administration Furosemide 80 mg 02/21/19 10:00 02/23/19 10:27 Lasix - PO 80 mg DAILY ZOILA Administration Gabapentin 300 mg 02/20/19 22:00 02/23/19 10:27 Neurontin - PO 300 mg BID ZOILA Administration Ampicillin Sodium 1 gm/ Sodium 100 mls @ 200 mls/hr 02/21/19 11:15 02/23/19 18:53 Chloride IVPB 200 mls/hr Q8H-IV ZOILA Administration Protocol Ceftazidime 1 gm/ Dextrose 50 mls @ 100 mls/hr 02/21/19 11:45 02/23/19 18:53 IVPB 100 mls/hr Q8H-IV ZOILA Administration Lactobacillus Acidophilus 1 tab 02/20/19 22:00 02/23/19 10:27 Bacid - PO 1 tab BID ZOILA Administration Metoprolol Tartrate 100 mg 02/20/19 22:00 02/23/19 10:27 Lopressor - PO 100 mg BID ZOILA Administration Quinapril HCl 10 mg 02/21/19 10:00 02/23/19 14:15 Accupril - PO 10 mg DAILY ZOILA Administration ASSESSMENT/PLAN: Patient is a 83 year old female with PMHx of urinary retention, neurogenic bladder, afib (on eliquis), CHF. She presented to ED with blood per the urinary catheter site along with urinary retention. Patient states that the catheter was originally placed by her urologist and was changed by her visiting nurse. Patient reports bleeding around quintana site. c/o lower abd pain. Quintana was changed in ED and urine was cultured. ID: UTI/chronic quintana catheter UC with VRE/psudomonoas On Ampicillin and Fortaz Started on bladder irrigation with CBI per urology, urine clear today, no urinary retention. on contact isolation for VRE ID following. : On bladder irrigation, hematuria now resolved. hmg/hmt stable No clots followed by urology GI: Large hiatal herna seen on CT Patient refusing surgical evaluation for hernia Card: Hypertension, controlled Accupril 10mg daily metoprolol 100mg BID lasix 80mg once daily Atrial fibrillation Eliquis on hold for hematuria restart once cleared by urology Depression On cymbalta 60mg daily CHF on lasix fen tolerating po monitor electrolytes intake and output low salt diet Visit type - Emergency Visit Emergency Visit: Yes ED Registration Date: 02/20/19 Care time: The patient presented to the Emergency Department on the above date and was hospitalized for further evaluation of their emergent condition. - New Patient This patient is new to me today: No - Critical Care Critical Care patient: No - Discharge Referral Referred to [facility] Med P.C.: No
[2019-02-24] MEDS: CEFTAZIDIME PENTAHYDRATE 1 GM in DEXTROSE 5%-WATER - 50 ML IVPB SCH ×3 (01:32→17:05)
[2019-02-24] MEDS: AMPICILLIN - 1 GM in SODIUM CHLORIDE 100 ML IVPB SCH ×3 (01:59→17:59)
[2019-02-24] MEDS: PIPERACILLIN/TAZOB 3.375 GM 3.375 GM in DEXTROSE 5%-WATER - 50 ML IVPB SCH (07:15)
[2019-02-24] MEDS ORDERED: PT OWN MED DRAWER 7, Y5N ONE ×2 (09:17→16:52)
[2019-02-24] MEDS: METOPROLOL TARTRATE 50 MG TABLET (FP) PO SCH ×2 (09:24→21:03)
[2019-02-24] MEDS: FUROSEMIDE 40 MG TABLET (FP) PO SCH (09:25)
[2019-02-24] MEDS: GABAPENTIN 300 MG CAPSULE (FP) PO SCH ×2 (09:25→21:03)
[2019-02-24] MEDS: LACTOBACILLUS ACIDOPHILUS 1 TABLET PO SCH ×2 (09:25→21:03)
--- NOTE | 2019-02-24 10:10 | PN ---
Progress Note (short form) - Note Progress Note: afebrile urine clear off CBI no suprapubic pain may hold CBI restart Eliquus
[2019-02-24 10:27] LABS: BASO % 2.3 % (0-2.0); EOS % 4.8 % (0-4.5); HEMATOCRIT 35.7 % (32.4-45.2); LYMPH % 20.9 % (8-40); MCH 33.4 pg (25.7-33.7); MCHC 33.6 g/dl (32.0-36.0); MEAN CELL VOLUME 99.3 fl (80-96); MEAN PLT VOLUME 8.7 fl (7.5-11.1); MONO % 11.1 % (3.8-10.2); NEUT % 60.9 % (42.8-82.8); PLATELET COUNT 172 K/MM3 (134-434); RDW 14.4 % (11.6-15.6); WHITE BLOOD COUNT 4.7 K/mm3 (4.0-10.0)
[2019-02-24] MEDS: DULoxetine HCL 30 MG CAPSULE.DR (FP) PO SCH (10:33)
[2019-02-24] MEDS: QUINAPRIL HCL 10 MG TABLET (FP) PO SCH (10:33)
[2019-02-24 11:02] LABS: ALK PHOS 66 U/L (45-117); ANION GAP 6 MMOL/L (8-16); BILIRUBIN,TOTAL 0.4 mg/dL (0.2-1); BLOOD UREA NITROGEN 13 mg/dL (7-18); CALCIUM 9.5 mg/dL (8.5-10.1); CHLORIDE 101 mmol/L (98-107); CO2 34 mmol/L (21-32); CREATININE 0.5 mg/dL (0.55-1.3); GLUCOSE,RANDOM 94 mg/dL (74-106); POTASSIUM 3.7 mmol/L (3.5-5.1); SGOT/AST 24 U/L (15-37); SGPT/ALT 15 U/L (13-61); SODIUM 141 mmol/L (136-145); TOT PROT 6.3 g/dl (6.4-8.2)
--- NOTE | 2019-02-24 11:03 | PN ---
Physical Exam: SUBJECTIVE: Patient seen and examined OBJECTIVE: cbi discontinued, urine clear restart eliquis Vital Signs Period Temp Pulse Resp BP Sys/Miller Pulse Ox Last 24 Hr 98.0 F-98.8 F 71-77 18-20 102-142/70-97 98 GENERAL: The patient is awake, alert, and fully oriented, in no acute distress. HEAD: Normal with no signs of trauma. EYES: PERRL, sclera anicteric, conjunctiva clear. ENT: nares patent, oropharynx clear without exudates, moist mucous membranes. NECK: Trachea midline, full range of motion, supple. LUNGS: Breath sounds equal, clear to auscultation bilaterally, no wheezes, no crackles, no accessory muscle use. HEART: Regular rate and rhythm, S1, S2 without murmur, rub or gallop. ABDOMEN: Soft, no tenderness, nondistended, normoactive bowel sounds, no guarding, : quintana in place clear yellow urine EXTREMITIES: 2+ pulses, warm, well-perfused, no edema. - right foot drop, she is non ambulatory, WC dependent at home. NEUROLOGICAL: Normal speech, gait not observed. PSYCH: Normal mood, normal affect. SKIN: Warm, dry, normal turgor, no rashes or lesions noted Laboratory Results - last 24 hr 02/24/19 02/24/19 09:44 09:44 WBC 4.7 RBC 3.60 Hgb 12.0 Hct 35.7 MCV 99.3 H MCH 33.4 MCHC 33.6 RDW 14.4 Plt Count 172 MPV 8.7 Absolute Neuts (auto) 2.9 Neutrophils % 60.9 Lymphocytes % 20.9 Monocytes % 11.1 H Eosinophils % 4.8 H Basophils % 2.3 H Nucleated RBC % 0 Sodium 141 Potassium 3.7 Chloride 101 Carbon Dioxide 34 H Anion Gap 6 L BUN 13 Creatinine 0.5 L Creat Clearance w eGFR 117.26 Random Glucose 94 Calcium 9.5 Total Bilirubin 0.4 AST 24 ALT 15 Alkaline Phosphatase 66 Total Protein 6.3 L Albumin 3.0 L Active Medications Generic Name Dose Route Start Last Admin Trade Name Freq PRN Reason Stop Dose Admin Acetaminophen 650 mg 02/20/19 15:04 02/21/19 10:04 Tylenol - PO 650 mg Q6H PRN Administration PAIN LEVEL 1-5 Apixaban 5 mg 02/24/19 11:15 Eliquis - PO BID ZOILA Duloxetine HCl 60 mg 02/21/19 10:00 02/24/19 10:33 Cymbalta - PO 60 mg DAILY ZOILA Administration Furosemide 80 mg 02/21/19 10:00 02/24/19 09:25 Lasix - PO 80 mg DAILY ZOILA Administration Gabapentin 300 mg 02/20/19 22:00 02/24/19 09:25 Neurontin - PO 300 mg BID ZOILA Administration Ampicillin Sodium 1 gm/ Sodium 100 mls @ 200 mls/hr 02/21/19 11:15 02/24/19 09:25 Chloride IVPB 200 mls/hr Q8H-IV ZOILA Administration Protocol Ceftazidime 1 gm/ Dextrose 50 mls @ 100 mls/hr 02/21/19 11:45 02/24/19 10:32 IVPB 100 mls/hr Q8H-IV ZOILA Administration Lactobacillus Acidophilus 1 tab 02/20/19 22:00 02/24/19 09:25 Bacid - PO 1 tab BID ZOILA Administration Metoprolol Tartrate 100 mg 02/20/19 22:00 02/24/19 09:24 Lopressor - PO 100 mg BID ZOILA Administration Quinapril HCl 10 mg 02/21/19 10:00 02/24/19 10:33 Accupril - PO 10 mg DAILY ZOILA Administration ASSESSMENT/PLAN: Patient is a 83 year old female with PMHx of urinary retention, neurogenic bladder, afib (on eliquis), CHF. She presented to ED with blood per the urinary catheter site along with urinary retention. Patient states that the catheter was originally placed by her urologist and was changed by her visiting nurse. Patient reports bleeding around quintana site. c/o lower abd pain. Quintana was changed in ED and urine was cultured. ID: UTI/chronic quintana catheter UC with VRE/psudomonoas On Ampicillin and Fortaz Started on bladder irrigation with CBI per urology, urine clear today, no urinary retention. on contact isolation for VRE ID following. : s/p bladder irrigation with CBI, hematuria now resolved. hmg/hmt stable No clots followed by urology GI: Large hiatal herna seen on CT Patient refusing surgical evaluation for hernia Card: Hypertension, controlled Accupril 10mg daily metoprolol 100mg BID lasix 80mg once daily Atrial fibrillation Eliquis on hold for hematuria restart once cleared by urology Depression On cymbalta 60mg daily CHF on lasix fen tolerating po monitor electrolytes intake and output low salt diet Visit type - Emergency Visit Emergency Visit: Yes ED Registration Date: 02/20/19 Care time: The patient presented to the Emergency Department on the above date and was hospitalized for further evaluation of their emergent condition. - New Patient This patient is new to me today: No - Critical Care Critical Care patient: No - Discharge Referral Referred to [facility] Med P.C.: No
[2019-02-24] MEDS: APIXABAN 5 MG TABLET PO SCH ×2 (12:28→21:03)
--- NOTE | 2019-02-24 18:07 | PN ---
Progress Note (short form) - Note Progress Note: urine has cleared irrigation stopped Vital Signs Period Temp Pulse Resp BP Sys/Miller Pulse Ox Last 24 Hr 97.9 F-98.1 F 71-80 18-20 111-157/53-97 98-99 cor-rrr lungs decreased bs at bases abd soft,nt ext no edema quintana with clear quintana CBC, BMP 02/24/19 09:44 02/24/19 09:44 a/p gross hematuria-resolved d/c iv antibiotics day #4 switch to po amox for another 3 days neurogenic bladder history of spinal stenosis afib on eliquis contact isolation for VRE Problem List - Problems (1) Gross hematuria Code(s): R31.0 - GROSS HEMATURIA (2) UTI (urinary tract infection) Code(s): N39.0 - URINARY TRACT INFECTION, SITE NOT SPECIFIED (3) Neurogenic bladder Code(s): N31.9 - NEUROMUSCULAR DYSFUNCTION OF BLADDER, UNSPECIFIED (4) Afib Code(s): I48.91 - UNSPECIFIED ATRIAL FIBRILLATION (5) VRE (vancomycin resistant enterococcus) culture positive Code(s): Z22.39 - CARRIER OF OTHER SPECIFIED BACTERIAL DISEASES
[2019-02-24] MEDS: AMOXICILLIN 500 MG CAPSULE (FP) PO SCH (21:03)
[2019-02-25] MEDS: AMOXICILLIN 500 MG CAPSULE (FP) PO SCH ×2 (05:38→13:45)
[2019-02-25 07:12] LABS: BASO % 0.7 % (0-2.0); EOS % 6.1 % (0-4.5); HEMATOCRIT 34.3 % (32.4-45.2); HEMOGLOBIN 11.6 GM/dL (10.7-15.3); LYMPH % 22.9 % (8-40); MCH 33.3 pg (25.7-33.7); MCHC 33.8 g/dl (32.0-36.0); MEAN CELL VOLUME 98.6 fl (80-96); MEAN PLT VOLUME 8.3 fl (7.5-11.1); NEUT % 58.3 % (42.8-82.8); PLATELET COUNT 177 K/MM3 (134-434); RBC 3.48 M/mm3 (3.60-5.2); RDW 14.4 % (11.6-15.6); WHITE BLOOD COUNT 5.2 K/mm3 (4.0-10.0)
[2019-02-25 07:38] LABS: ALBUMIN 2.8 g/dl (3.4-5.0); ALK PHOS 62 U/L (45-117); BILIRUBIN,TOTAL 0.4 mg/dL (0.2-1); BLOOD UREA NITROGEN 14 mg/dL (7-18); CALCIUM 9.1 mg/dL (8.5-10.1); CHLORIDE 102 mmol/L (98-107); CO2 31 mmol/L (21-32); CREATININE 0.5 mg/dL (0.55-1.3); GLUCOSE,RANDOM 100 mg/dL (74-106); POTASSIUM 3.3 mmol/L (3.5-5.1); SGOT/AST 19 U/L (15-37); SGPT/ALT 15 U/L (13-61); SODIUM 140 mmol/L (136-145); TOT PROT 5.8 g/dl (6.4-8.2)
[2019-02-25 07:43] LABS: ANION GAP 8 MMOL/L (8-16)
[2019-02-25] MEDS ORDERED: POTASSIUM CHLORIDE TABS 20 MEQ TABLET.ER (FP) PO ONE (09:15)
[2019-02-25] MEDS: METOPROLOL TARTRATE 50 MG TABLET (FP) PO SCH (09:47)
[2019-02-25] MEDS: DULoxetine HCL 30 MG CAPSULE.DR (FP) PO SCH (09:47)
[2019-02-25] MEDS: FUROSEMIDE 40 MG TABLET (FP) PO SCH (09:48)
[2019-02-25] MEDS: APIXABAN 5 MG TABLET PO SCH (09:48)
[2019-02-25] MEDS: LACTOBACILLUS ACIDOPHILUS 1 TABLET PO SCH (09:48)
[2019-02-25] MEDS: QUINAPRIL HCL 10 MG TABLET (FP) PO SCH (09:49)
[2019-02-25] MEDS: GABAPENTIN 300 MG CAPSULE (FP) PO SCH (10:30)
--- NOTE | 2019-02-25 11:34 | PN ---
Progress Note (short form) - Note Progress Note: Urine is clear today off CBI patient is comfortable. may discharge with quintana to leg bag Problem List - Problems (1) Gross hematuria Code(s): R31.0 - GROSS HEMATURIA (2) Neurogenic bladder Code(s): N31.9 - NEUROMUSCULAR DYSFUNCTION OF BLADDER, UNSPECIFIED
--- NOTE | 2019-02-25 13:20 | DS ---
Physical Exam: SUBJECTIVE: Patient seen and examined at the bedside. feels well, no abdominal pain or suprapubic pressure. urine is clear. she has [employer] at home and agrees with being discharged today. OBJECTIVE: Vital Signs Period Temp Pulse Resp BP Sys/Miller Pulse Ox Last 24 Hr 97.9 F-98.5 F 72-80 20-20 111-167/53-93 99 PHYSICAL EXAM GENERAL: The patient is awake, alert, and fully oriented, in no acute distress. HEAD: Normal with no signs of trauma. EYES: PERRL, sclera anicteric, conjunctiva clear. ENT: nares patent, oropharynx clear without exudates, moist mucous membranes. NECK: Trachea midline, full range of motion, supple. LUNGS: Breath sounds equal, clear to auscultation bilaterally, no wheezes, no crackles, no accessory muscle use. HEART: irregular, controlled ABDOMEN: Soft, no tenderness, nondistended, normoactive bowel sounds, no guarding, : quintana in place clear yellow urine EXTREMITIES: 2+ pulses, warm, well-perfused, no edema. - right foot drop, she is non ambulatory, WC dependent at home. NEUROLOGICAL: Normal speech, gait not observed. PSYCH: Normal mood, normal affect. SKIN: Warm, dry, normal turgor, no rashes or lesions noted LABS Laboratory Results - last 24 hr 02/25/19 02/25/19 06:00 06:00 WBC 5.2 RBC 3.48 L Hgb 11.6 Hct 34.3 MCV 98.6 H MCH 33.3 MCHC 33.8 RDW 14.4 Plt Count 177 MPV 8.3 Absolute Neuts (auto) 3.1 Neutrophils % 58.3 Lymphocytes % 22.9 Monocytes % 12.0 H Eosinophils % 6.1 H Basophils % 0.7 Nucleated RBC % 0 Sodium 140 Potassium 3.3 L Chloride 102 Carbon Dioxide 31 Anion Gap 8 BUN 14 Creatinine 0.5 L Creat Clearance w eGFR 117.26 Random Glucose 100 Calcium 9.1 Magnesium 2.0 Total Bilirubin 0.4 AST 19 ALT 15 Alkaline Phosphatase 62 Total Protein 5.8 L Albumin 2.8 L HOSPITAL COURSE: Date of Admission:02/20/19 Date of Discharge: 02/25/19 Patient is a 83 year old female with PMHx of urinary retention, neurogenic bladder, afib (on eliquis), CHF. She presented to ED with blood per the urinary catheter site along with urinary retention. Patient states that the catheter was originally placed by her urologist and was changed by her visiting nurse. Patient reports bleeding around quintana site. c/o lower abd pain. Quintana was changed in ED and urine was cultured. Hospital course by problem list: ID: UTI/chronic quintana catheter, urinary retention. resolved. Urine cultures with VRE/psudomonoas Patient was treated with Ampicillin and Fortaz during hospital stay. For the urinary retention and clots, she was treated with continouous bladder irrigation with has been discontinued on 02/24/19. Her quintana with clear yellow urine. No evidence of clots. Her hmg/hct stable. She will be discharged home with urology follow up. She will be on 3 more days of Augmentin. GI: Large hiatal herna seen on CT Patient refusing surgical evaluation for hernia. She has had this for a long time and tells me that she has no issues and does not want any surgical interventions. Card: Hypertension, controlled Accupril 10mg daily metoprolol 100mg BID lasix 80mg once daily Atrial fibrillation Restarted Eliquis Rate controlled. Depression On cymbalta 60mg daily Discharge home with PCP and urology follow up as an outpatient. She has a home health aide for 4 hours per day 5 days per week. Patient to consider physical therapy in the future, she is currently refusing any PT She is mostly WC bound at home. Minutes to complete discharge: 60 Discharge Summary Reason For Visit: UTI, GROSS HEMATURIA,VREF Current Active Problems CHF (congestive heart failure) (Acute) Gross hematuria (Acute) Hiatal hernia (Acute) Neurogenic bladder (Acute) UTI (urinary tract infection) (Acute) VRE (vancomycin resistant enterococcus) culture positive (Acute) Condition: Stable - Instructions Diet, Activity, Other Instructions: Mrs Dela Cruz: You were admitted for blood in your urine. We were seen by a urologist during your hospital stay and treated with continuous bladder irrigation. We will be discharging you home today. Here are our recommendations: Urinary tract infection/chronic quintana catheter You were found to have a bacteria called VRE in your urine. We treated you with IV antibiotics and will be converting you back to oral antibiotics for 3 more days. Please follow up with your primary care doctor within 1 week after your discharge. Amoxicillin 500mg at 8am, 3pm and 8pm for 3 more days, you will finish this dose on 02/27/2019. Continue taking your medications as ordered in your discharge instructions Follow ups: Please follow up with your urologist in 1-2 weeks after discharge.. Please call for an appointment. Please follow up with your primary care doctor. Thank you for allowing us to care for you. Tiana Ramana Stewart NP [facility] [phone] Referrals: Yanick Calle MD [Primary Care Provider] - Tahir Briones MD [Staff Physician] - Disposition: HOME - Home Medications Comprehensive Discharge Medication List: Ambulatory Orders Apixaban [Eliquis -] 5 mg PO BID tablet 04/19/16 Acetaminophen [Tylenol .Regular Strength -] 650 mg PO Q6H PRN tablet 03/06/18 Albuterol 2.5/Ipratropium 0.5 [Duoneb -] 1 amp NEB RTID amp 03/06/18 Duloxetine HCl [Cymbalta -] 60 mg PO DAILY 08/17/18 Gabapentin [Neurontin -] 300 mg PO BID 08/17/18 Lactobacillus Acidophilus [Bacid -] 1 each PO BID 08/17/18 Lasix - 80 mg PO DAILY 08/17/18 Metoprolol Tartrate [Lopressor] 100 mg PO BID 08/17/18 Oxycodone HCl [Oxycontin] 10 mg PO BID PRN 08/17/18 Potassium Chloride [Klor-Con] 20 meq PO DAILY 08/17/18 Quinapril HCl [Accupril -] 10 mg PO DAILY 08/17/18 Amoxicillin - [Amoxicillin 500mg Capsule -] 500 mg PO TID #9 capsule 02/25/19 This patient is new to me today: No Emergency Visit: Yes ED Registration Date: 02/20/19 Care time: The patient presented to the Emergency Department on the above date and was hospitalized for further evaluation of their emergent condition. Critical Care patient: No - Discharge Referral Referred to [facility] Med P.C.: No
[2019-02-25 17:02] VITALS: BP 125/87; PULSE 69; TEMP 99.1
== END 2019-02-25 19:08 | disposition home or self-care (01) | DRG 690 ==
LOC: JER 11:43 → JERBED 14:31 → J8W 02-21 18:10 → J5W 02-21 20:26 → J8W 02-21 20:45
PROVIDERS: ADMIT Internal Medicine; ATTEND Nurse Practitioner Family
PROC: 3E1K78Z Irrigation of Genitourinary Tract using Irrigating Substance, Via Natural or Artificial Opening (ICD-10-PCS; principal; 2019-02-22)
DX: N39.0 Urinary tract infection, site not specified (principal); N31.9 Neuromuscular dysfunction of bladder, unspecified; R33.9 Retention of urine, unspecified; M48.00 Spinal stenosis, site unspecified; I48.91 Unspecified atrial fibrillation; K44.9 Diaphragmatic hernia without obstruction or gangrene; F32.9 Major depressive disorder, single episode, unspecified; G89.29 Other chronic pain; I11.0 Hypertensive heart disease with heart failure; R31.0 Gross hematuria; Z22.39 Carrier of other specified bacterial diseases
CPT/HCPCS: 36415; 71045-TC-FY; 71250-TC; 74176-TC; 80048; 80053; 81003; 83735; 85025; 85027; 85610; 85730; 87040; 87081; 87086; 87186; 93005; 93010; 99285-25; J7030

== ENCOUNTER 2019-09-25 17:24 | Emergency (ER) | payer OTHER, MEDICARE ==
--- NOTE | 2019-09-25 17:39 | PDOC ---
History of Present Illness - General Stated Complaint: ABDOMINAL PAIN Time Seen by Provider: 09/25/19 17:33 - History of Present Illness Initial Comments: 09/25/19 18:11 84 y/o F hx of spinal stenosis with urinary retention, Afib on eloquis, HTN, CHF presents to the ER with 2 days of suprapubic pain. Pain is intermittent and 10/10 when it occurs. She denies pain at this time. Pain is non-radiating, she has noticed darker color in her urine. She endorses back pain ,diarrhea yesterday, hx of abdominal surgery (hysterectomy) She denies nausea, vomiting, chills, fevers. Patient is unsure when quintana catheter was last changed. 09/25/19 18:32 09/25/19 18:42 Past History - Past Medical History Allergies/Adverse Reactions: Allergies Allergy/AdvReac Type Severity Reaction Status Date / Time No Known Allergies Allergy Verified 09/25/19 18:15 Home Medications: Ambulatory Orders Apixaban [Eliquis -] 5 mg PO BID tablet 04/19/16 Acetaminophen [Tylenol .Regular Strength -] 650 mg PO Q6H PRN tablet 03/06/18 Duloxetine HCl [Cymbalta -] 60 mg PO DAILY 08/17/18 Gabapentin [Neurontin -] 300 mg PO BID 08/17/18 Metoprolol Tartrate [Lopressor] 100 mg PO BID 08/17/18 Potassium Chloride [Klor-Con] 20 meq PO DAILY 08/17/18 Quinapril HCl [Accupril -] 10 mg PO DAILY 08/17/18 Furosemide 2 tab PO DAILY 09/25/19 Sulfamethoxazole/Trimethoprim [Bactrim Ds Tablet] 1 each PO BID 10 Days #20 tablet 09/25/19 Cardiac Disorders: Yes (afib) COPD: No CHF: Yes Disorders: Yes HTN: Yes Psychiatric Problems: Yes (major depression) - Psycho Social/Smoking Cessation Hx Smoking History: Never smoked Have you smoked in the past 12 months: No If you are a former smoker, when did you quit?: 30 yrs Hx Alcohol Use: No Drug/Substance Use Hx: No Substance Use Type: None Hx Substance Use Treatment: No Review of Systems - Review of Systems Constitutional: No: Chills, Fever HEENTM: No: Eye Pain, Blurred Vision Respiratory: No: Cough, Shortness of Breath Cardiac (ROS): No: Chest Pain, Lightheadedness ABD/GI: No: Nausea, Vomiting : Yes: Hematuria. No: Burning, Flank Pain Integumentary: No: Bruising, Change in Color Neurological: No: Headache, Numbness Hematologic/Lymphatic: No: Blood Clots, Easy Bleeding *Physical Exam - Physical Exam Comments: 09/25/19 18:37 PE: GENERAL: Awake, alert, and fully oriented, in no acute distress HEAD: No signs of trauma, normocephalic, atraumatic EYES: sclera anicteric, conjunctiva clear ENT: Auricles normal inspection, hearing grossly normal, nares patent, oropharynx clear without exudates. Moist mucosa NECK: Normal ROM, supple, no masses LUNGS: No distress, speaks full sentences, clear to auscultation bilaterally HEART: Regular rate and rhythm, normal S1 and S2, no murmurs, rubs or gallops, peripheral pulses normal and equal bilaterally. ABDOMEN: Soft, suprapubic tenderness and guarding. right lower quadrant tenderness. (-) rebound tenderness. : Dark red colored urine in quintana bag. EXTREMITIES : foot drop on the right. sensation intact. 2+ pedal pulses bilaterally. NEUROLOGICAL: Cranial nerves II through XII grossly intact. Normal speech. SKIN: Warm, Dry, normal turgor, no rashes or lesions noted ED Treatment Course - LABORATORY CBC & Chemistry Diagram: 09/25/19 18:30 09/25/19 18:13 Medical Decision Making - Medical Decision Making 09/25/19 18:41 84 y/o F hx of spinal stenosis with urinary retention, Afib on eloquis, HTN, CHF presents to the ER with 2 days of suprapubic pain. cbc, cmp, ua, urine culture quintana catheter insert 09/25/19 18:45 UA: yellow, 2+ blood nitrite: positive leukocyte esterase 1+ -white count elevated 13.5 Quintana: 400 cc drained in new quintana 09/25/19 19:09 1g rocephin IV for UTI cmp pending Metoprolol tartrate was also given for blood pressure control 09/25/19 21:03 cmp unremarkable Pt has good follow up care at home and has live in aid discharging home with bactrim DS for 10 days - given 1 dose here prior to discharge. Discharge - Discharge Information Problems reviewed: Yes Clinical Impression/Diagnosis: UTI (urinary tract infection) due to urinary indwelling Quintana catheter Qualifiers: Indwelling urinary catheter type: unspecified Encounter type: initial encounter Qualified Code(s): T83.511A - Infection and inflammatory reaction due to indwelling urethral catheter, initial encounter Condition: Stable Disposition: HOME - Admission No - Additional Discharge Information Prescriptions: Sulfamethoxazole/Trimethoprim [Bactrim Ds Tablet] 1 each PO BID 10 Days #20 tablet - Follow up/Referral Referrals: Ellen Arguello [Primary Care Provider] - - Patient Discharge Instructions Patient Printed Discharge Instructions: DI for Urinary Tract Infection (UTI) Additional Instructions: You were seen in the ER for a urinary tract infection and your catheter was changed ensure that catheter is changed frequently (not just the bag) - You have been prescribed antibiotics .take as directed, Wash your hands before and after you use the bathroom or touch the catheter. Wash your hands to prevent the spread of infection to your urinary tract. Clean all parts of your catheter as directed. Keep your catheter tubing clean. Do not place the catheter on the ground. Do not allow the drainage spout to touch the toilet. Use an alcohol swab to clean the end of drainage spout as directed. Keep the drainage bag below your waist. This will prevent urine from moving back into your bladder, which can cause an infection. Empty the urine bag as directed. This may prevent urine from moving back into your bladder. Women should wipe front to back after a bowel movement. This may prevent germs from getting into the urinary tract. Keep the catheter secured to your leg as directed. Use tape or a special catheter panda to prevent your catheter from being pulled. This may also prevent kinks that could cause the urine to move back into the bladder. Return to the ER -you develop fevers, chills, nausea, vomiting -there continues to be blood in your urine bag - Post Discharge Activity
[2019-09-25 17:53] VITALS: BMI 26.6
[2019-09-25] MEDS ORDERED: METOPROLOL TARTRATE 50 MG TABLET (FP) PO ONE (18:10)
[2019-09-25] MEDS ORDERED: SODIUM CHLORIDE 500 ML IV STA (18:10)
--- NOTE | 2019-09-25 18:16 | PDOC ---
Documentation entered by Kianna Perez SCRIBE, acting as scribe for Sophia Prabhakar MD. Sophia Prabhakar MD: This documentation has been prepared by the kjibe, Kianna Perez SCRIBE, under my direction and personally reviewed by me in its entirety. I confirm that the documentation accurately reflects all work, treatment, procedures, and medical decision making performed by me. Attending Attestation - Resident Resident Name: Adele Ng - ED Attending Attestation I have performed the following: I have examined & evaluated the patient, The case was reviewed & discussed with the resident, I agree w/resident's findings & plan, Exceptions are as noted - HPI HPI: 09/25/19 18:15 84-year-old female arrived from home with complaint suprapubic discomfort HPI neurogenic bladder, chronic indwelling Quintana, spinal stenosis with past medical history of UTI - Physicial Exam PE: 09/25/19 18:53 Well-nourished well-developed alert 84-year-old female with complaint of suprapubic pain and urinary retention Head normocephalic atraumatic Neck is supple Lungs are clear to auscultation bilaterally CVS irregular regular rhythm S1-S2 Abdomen distended bladder Skin warm and dry Neuro alert and oriented x3, ambulatory Psych appropriate - Medical Decision Making 09/25/19 19:05 bedside ultrasound shows >400 cc of urine plan will changed the quintana and reassess/labs/ UA pending 09/25/19 19:40 UA+++UTI 09/25/19 20:33 Visiting nurse has only been changing the bag and not the Quintana itself and therefore there was a large amount of sediment that was obstructing. The Quintana was changed and the patient felt much better after her bladder was emptied She did have UA that showed nitrate positive and she was given IV antibiotics and started on p.o. antibiotics She has no fever no chills no nausea no vomiting and a benign abdominal exam after the Quintana was changed
[2019-09-25] MEDS ORDERED: METOPROLOL TARTRATE 50 MG TABLET (FP) ONE (18:22)
[2019-09-25 18:46] LABS: BASO % 0.8 % (0-2.0); EOS % 0.1 % (0-4.5); HEMATOCRIT 40.8 % (32.4-45.2); LYMPH % 4.1 % (8-40); MCH 33.3 pg (25.7-33.7); MCHC 34.3 g/dl (32.0-36.0); MEAN CELL VOLUME 96.9 fl (80-96); MEAN PLT VOLUME 8.5 fl (7.5-11.1); MONO % 7.5 % (3.8-10.2); NEUT % 87.5 % (42.8-82.8); PLATELET COUNT 205 K/MM3 (134-434); RBC 4.21 M/mm3 (3.60-5.2); RDW 14.5 % (11.6-15.6); WHITE BLOOD COUNT 13.5 K/mm3 (4.0-10.0)
[2019-09-25 19:05] LABS: EPI CELLS 0.1 /HPF (0-5/HPF); HYALINE CASTS 7 /lpf (0-8); URINE APPEARANCE CLEAR; URINE BACTERIA 1469.5 /hpf (NEGATIVE); URINE BILIRUBIN NEGATIVE (NEGATIVE); URINE COLOR YELLOW; URINE GLUCOSE (UA) NEGATIVE (NEGATIVE); URINE KETONE NEGATIVE (NEGATIVE); URINE LEUK ESTERASE 1+ (NEGATIVE); URINE NITRITE POSITIVE (NEGATIVE); URINE PROTEIN TRACE (NEGATIVE); URINE RBC 56 /hpf (0-4); URINE UROBILINOGEN 0.2 mg/dL (0.2-1.0); URINE WBC 58 /hpf (0-5)
[2019-09-25] MEDS ORDERED: CEFTRIAXONE 1 GM in DEXTROSE 5%-WATER - 100 ML IVPB ONE (19:35)
[2019-09-25] MEDS ORDERED: CEFTRIAXONE 1 GM/50 ML BAG ONE (19:46)
[2019-09-25 19:54] LABS: ALBUMIN 4.1 g/dl (3.4-5.0); BILIRUBIN,TOTAL 0.7 mg/dL (0.2-1); BLOOD UREA NITROGEN 14.1 mg/dL (7-18); CALCIUM 10.1 mg/dL (8.5-10.1); CREATININE 0.6 mg/dL (0.55-1.3); POTASSIUM 3.4 mmol/L (3.5-5.1); TOT PROT 8.1 g/dl (6.4-8.2)
[2019-09-25 20:35] VITALS: TEMP 98.4
[2019-09-25] MEDS ORDERED: SULFAMETHOXAZOLE/TRIMETHOPRIM 800MG/160MG D.S. TABLET PO ONE (20:37)
[2019-09-25] MEDS ORDERED: SULFAMETHOXAZOLE/TRIMETHOPRIM 800MG/160MG D.S. TABLET ONE (20:39)
[2019-09-25 22:21] VITALS: BP 127/86; PULSE 75
--- NOTE | 2019-09-28 11:39 | EKG ---
Test Reason : Blood Pressure : / mmHG Vent. Rate : 084 BPM Atrial Rate : 068 BPM P-R Int : 000 ms QRS Dur : 080 ms QT Int : 344 ms P-R-T Axes : 000 069 -77 degrees QTc Int : 406 ms POOR DATA QUALITY, INTERPRETATION MAY BE ADVERSELY AFFECTED ATRIAL FIBRILLATION ABNORMAL ECG WHEN COMPARED WITH ECG OF 21-FEB-2019 14:42, INVERTED T WAVES HAVE REPLACED NONSPECIFIC T WAVE ABNORMALITY IN INFERIOR LEADS INVERTED T WAVES HAVE REPLACED NONSPECIFIC T WAVE ABNORMALITY IN ANTEROLATERAL LEADS Confirmed by MAYE MACHADO, TIMMY ([id number]) on 09/28/2019 11:39:04 AM Referred By: Confirmed By:TIMMY VILLAVICENCIO MD
== END 2019-09-25 22:20 | disposition home or self-care (01) ==
LOC: JER 17:24
PROC: 0T2BX0Z Change Drainage Device in Bladder, External Approach (ICD-10-PCS; principal; 2019-09-25)
PROC: 3E0337Z Introduction of Electrolytic and Water Balance Substance into Peripheral Vein, Percutaneous Approach (ICD-10-PCS; 2019-09-25)
PROC: 3E03329 Introduction of Other Anti-infective into Peripheral Vein, Percutaneous Approach (ICD-10-PCS; 2019-09-25)
DX: T83.511A Infection and inflammatory reaction due to indwelling urethral catheter, initial encounter (principal); Y73.8 Miscellaneous gastroenterology and urology devices associated with adverse incidents, not elsewhere classified; Y92.038 Other place in apartment as the place of occurrence of the external cause; I11.0 Hypertensive heart disease with heart failure; I50.9 Heart failure, unspecified; I48.91 Unspecified atrial fibrillation; Z79.01 Long term (current) use of anticoagulants; M48.00 Spinal stenosis, site unspecified
CPT/HCPCS: 36415; 51702; 80053; 81003; 85025; 87086; 87186; 93005; 93010; 96361; 96365; 99285-25

== ENCOUNTER 2020-08-23 23:42 | Emergency (ER) | payer OTHER, MEDICARE ==
[2020-08-24] VITALS: PULSE 70; TEMP 98; BMI 27.4
--- NOTE | 2020-08-24 00:10 | PDOC ---
History of Present Illness - General Chief Complaint: Injury Stated Complaint: FALLS Time Seen by Provider: 08/24/20 00:01 History Source: Patient Past History - Medical History Allergies/Adverse Reactions: Allergies Allergy/AdvReac Type Severity Reaction Status Date / Time No Known Allergies Allergy Verified 09/25/19 18:15 Home Medications: Ambulatory Orders Apixaban [Eliquis -] 5 mg PO BID tablet 04/19/16 Acetaminophen [Tylenol .Regular Strength -] 650 mg PO Q6H PRN tablet 03/06/18 Duloxetine HCl [Cymbalta -] 60 mg PO DAILY 08/17/18 Gabapentin [Neurontin -] 300 mg PO BID 08/17/18 Metoprolol Tartrate [Lopressor] 100 mg PO BID 08/17/18 Potassium Chloride [Klor-Con] 20 meq PO DAILY 08/17/18 Quinapril HCl [Accupril -] 10 mg PO DAILY 08/17/18 Furosemide 2 tab PO DAILY 09/25/19 Sulfamethoxazole/Trimethoprim [Bactrim Ds Tablet] 1 each PO BID 10 Days #20 tablet 09/25/19 Cardiac Disorders: Yes (afib) COPD: No CHF: Yes Disorders: Yes HTN: Yes Psychiatric Problems: Yes (major depression) - Psycho-Social/Smoking History Smoking History: Unknown if ever smoked Have you smoked in the past 12 months: No If you are a former smoker, when did you quit?: 30 yrs - Substance Abuse Hx (Audit-C & DAST Scrn) How often the patient has a drink containing alcohol: Never Score: In Men: 4 or > Positive; In Women: 3 or > Positive: 0 Screen Result (Pos requires Nsg. Audit-10AR): Negative *Physical Exam - Vital Signs Last Vital Signs Temp Pulse Resp BP Pulse Ox 98.0 F 70 18 100/78 100 08/23/20 23:54 08/23/20 23:54 08/23/20 23:54 08/23/20 23:54 08/23/20 23:54 Discharge - Discharge Information Problems reviewed: Yes Clinical Impression/Diagnosis: Fall Condition: Stable Disposition: HOME - Admission No - Follow up/Referral - Patient Discharge Instructions Patient Printed Discharge Instructions: How to Prevent Falls Additional Instructions: You were seen in the ER after sliding down into the tub. Your physical exam was normal. Follow up with your primary care physician as soon as possible, in the next 5-7 days. Return to the ER if you develop weakness, confusion, high fevers, chest pain, or difficulty breathing. - Post Discharge Activity
--- NOTE | 2020-08-24 01:30 | PDOC ---
Attending Attestation - Resident Resident Name: KatieMoe - ED Attending Attestation I have performed the following: I have examined & evaluated the patient, The case was reviewed & discussed with the resident, I agree w/resident's findings & plan, Exceptions are as noted - HPI HPI: 08/30/20 19:26 85F pmh AFib on AC, HTN, CHF, spinal stenosis c/b urinary retention here after stumbling in bathtub. While bathing, pt slid down to a sitting position in the tub. No trauma, no dizziness, lightheadedness, palpitations. Patient has no complaints but TECHNICAL REP call 911 for evaluation. - Physicial Exam PE: 08/30/20 19:28 Well appearing, NAD, AOx3 NCAT, neck supple, no bony tenderness LCTAB Regular rate, Irregular rhythm Abd soft, nt, nd Skin warm and dry Interacting appropriately during interview, ambulatory with slow steady gait, no antalgia NFD - Medical Decision Making 08/30/20 19:29 85F mechanical slip in tub w/o any trauma, no complaints DC back into care of TECHNICAL REP Strict return precautions Discharge - Discharge Information Problems reviewed: Yes Clinical Impression/Diagnosis: Fall Condition: Stable Disposition: HOME - Follow up/Referral - Patient Discharge Instructions Patient Printed Discharge Instructions: How to Prevent Falls Additional Instructions: You were seen in the ER after sliding down into the tub. Your physical exam was normal. Follow up with your primary care physician as soon as possible, in the next 5-7 days. Return to the ER if you develop weakness, confusion, high fevers, chest pain, or difficulty breathing. - Post Discharge Activity
[2020-08-24 02:23] VITALS: BP 147/88
--- OUTSIDE RECORDS SUMMARY | 2020-08-24 04:54 | XMS ---
:1935 Author Organization [facility] Support Name Relationship Address Phone RE Unavailable Unavailable Unavailable JUSTINA GALE DAUGHTER [address] [place] [address] ANGELICA GALE DAUGHTER [address] [place] [address] ANGELICA GALE Child [address] [phone] [place] [address] Re-disclosure Warning The records that you are about to access may contain information from federally- assisted alcohol or drug abuse programs. If such information is present, then the following federally mandated warning applies: This information has been disclosed to you from records protected by federal confidentiality rules (42 CFR part 2). The federal rules prohibit you from making any further disclosure of this information unless further disclosure is expressly permitted by the written consent of the person to whom it pertains or as otherwise permitted by 42 CFR part 2. A general authorization for the release of medical or other information is NOT sufficient for this purpose. The Federal rules restrict any use of the information to criminally investigate or prosecute any alcohol or drug abuse patient.The records that you are about to access may contain highly sensitive health information, the redisclosure of which is protected by Article 27-F of the [facility] Public Health law. If you continue you may haveaccess to information: Regarding HIV / AIDS; Provided by facilities licensed or operated by the [facility] Office of Mental Health; or Provided by the [facility] Office for People With Developmental Disabilities. If such information is present, then the following [facility] mandated warning applies: This information has been disclosed to you from confidential records which are protected by state law. State law prohibits you from making any further disclosure of this information without the specific written consent of the person to whom it pertains, or as otherwise permitted by law. Any unauthorized further disclosure in violation of state law may result in a fine or half-way sentence or both. A general authorization for the release of medical or other information is NOT sufficient authorization for further disclosure. Insurance Providers Payer name Policy type Policy ID Covered Covered alliance party's Policy P maryana / Coverage alliance party ID relationship to Panda Inf ormation type panda [facility] [id number] SP [id number] C[employer] MEDICARE [id number] SP [id number] [id number] PART B DOWNSTATE AARP MEDICARE [id number] 1 [id number] [place] [id number] 1 [id number] PART B [facility] [id number] SP [id number] CARE OPTIONS
== END 2020-08-24 02:23 | disposition home or self-care (01) ==
LOC: JER 23:42
DX: R42 Dizziness and giddiness (principal)
CPT/HCPCS: 99283-25

== ENCOUNTER 2021-01-28 16:15 | Inpatient (IN) | payer OTHER, MEDICARE ==
[2021-01-28 17:30] VITALS: BMI 26.6
[2021-01-28 18:05] LABS: BASO % 1.3 % (0-2.0); EOS % 1.3 % (0-4.5); HEMATOCRIT 44.2 % (32.4-45.2); HEMOGLOBIN 14.9 GM/dL (10.7-15.3); LYMPH % 12.5 % (8-40); MCH 33.5 pg (25.7-33.7); MCHC 33.8 g/dl (32.0-36.0); MEAN PLT VOLUME 9.4 fl (7.5-11.1); MONO % 11.6 % (3.8-10.2); NEUT % 73.3 % (42.8-82.8); PLATELET COUNT 164 K/MM3 (134-434); RBC 4.47 M/mm3 (3.60-5.2); RDW 14.8 % (11.6-15.6); WHITE BLOOD COUNT 8.7 K/mm3 (4.0-10.0)
[2021-01-28 18:09] LABS: INR 1.52 (0.83-1.09); PROTHROMBIN TIME (PATIENT) 18.2 SEC (9.7-13.0)
[2021-01-28 18:12] LABS: ACTIVATED PTT 41.4 SECONDS (25.2-36.5)
[2021-01-28 18:38] LABS: CHLORIDE 101 mmol/L (98-107); SODIUM 121 mmol/L (136-145)
[2021-01-28 18:40] LABS: CALCIUM 9.3 mg/dL (8.5-10.1)
[2021-01-28 18:41] LABS: ALBUMIN 2.6 g/dl (3.4-5.0); BLOOD UREA NITROGEN 20.5 mg/dL (7-18); CO2 33 mmol/L (21-32); GLUCOSE,RANDOM 77 mg/dL (74-106)
[2021-01-28 18:43] LABS: CHOLESTEROL 145 mg/dL (50-200)
[2021-01-28 18:44] LABS: CREATININE 0.7 mg/dL (0.55-1.3); TRIGLYCERIDES 112 mg/dL (0-150)
[2021-01-28 18:45] LABS: LDL CHOLESTEROL (ONLY SJRH) 107 mg/dL (5-100); TOT PROT 9.5 g/dl (6.4-8.2)
[2021-01-28 18:46] LABS: HDL CHOLESTEROL 78 mg/dL (40-60)
[2021-01-28 19:09] LABS: ANION GAP -12 MMOL/L (8-16)
[2021-01-28 19:12] LABS: POTASSIUM > 10.0 mmol/L (3.5-5.1)
[2021-01-28] MEDS ORDERED: SODIUM CHLORIDE 0.9% 500 ML INFUS.BAG IV ONE ×2 (19:19→19:22)
[2021-01-28] MEDS ORDERED: SODIUM CHLORIDE 500 ML IV SCH (19:45)
[2021-01-28 20:55] LABS: EPI CELLS 10 /uL (0-25.1); HYALINE CASTS 13 /uL (0-3.1); PH,URINE 5.5 (5.0-8.0); URINE APPEARANCE TURBID; URINE BACTERIA >9,000 /uL (0-1359); URINE BILIRUBIN NEGATIVE (NEGATIVE); URINE COLOR YELLOW; URINE GLUCOSE (UA) NEGATIVE (NEGATIVE); URINE KETONE NEGATIVE (NEGATIVE); URINE LEUK ESTERASE 3+ (NEGATIVE); URINE NITRITE POSITIVE (NEGATIVE); URINE PROTEIN TRACE (NEGATIVE); URINE RBC 97 /uL (0-23.9); URINE UROBILINOGEN 0.2 mg/dL (0.2-1.0); URINE WBC 907 /uL (0-25.8)
[2021-01-28 21:07] LABS: POTASSIUM 3.5 mmol/L (3.5-5.1)
[2021-01-28 21:08] LABS: CALCIUM 10.1 mg/dL (8.5-10.1)
[2021-01-28 21:09] LABS: BLOOD UREA NITROGEN 19.2 mg/dL (7-18)
[2021-01-28 21:12] LABS: CREATININE 0.6 mg/dL (0.55-1.3)
[2021-01-28] MEDS ORDERED: FOSFOMYCIN TROMETHAMINE 3 GM/PKT FOR ORAL SOLUTION PO SCH ×2 (22:45)
[2021-01-29] MEDS ORDERED: SODIUM CHLORIDE 1,000 ML IV SCH (01:30)
[2021-01-29] MEDS ORDERED: LIP BALM (CHAPSTICK) TP PRN (02:13)
[2021-01-29] MEDS ORDERED: ASPIRIN 81 MG CHEWABLE TABLETS PO ONE (03:00)
[2021-01-29] MEDS ORDERED: ASPIRIN 81 MG CHEWABLE TABLETS ONE (03:02)
[2021-01-29] MEDS ORDERED: APIXABAN 5 MG TABLET ONE (03:03)
[2021-01-29] MEDS: APIXABAN 5 MG TABLET PO SCH ×2 (04:36→22:10)
[2021-01-29 07:54] LABS: BASO % 1.3 % (0-2.0); EOS % 1.3 % (0-4.5); HEMATOCRIT 41.7 % (32.4-45.2); HEMOGLOBIN 14.1 GM/dL (10.7-15.3); LYMPH % 14.8 % (8-40); MCH 33.4 pg (25.7-33.7); MCHC 33.8 g/dl (32.0-36.0); MEAN CELL VOLUME 98.7 fl (80-96); MEAN PLT VOLUME 9.4 fl (7.5-11.1); MONO % 12.1 % (3.8-10.2); NEUT % 70.5 % (42.8-82.8); PLATELET COUNT 148 K/MM3 (134-434); RBC 4.23 M/mm3 (3.60-5.2); RDW 14.1 % (11.6-15.6); WHITE BLOOD COUNT 6.9 K/mm3 (4.0-10.0)
[2021-01-29 08:07] LABS: POTASSIUM 3.4 mmol/L (3.5-5.1)
[2021-01-29 08:09] LABS: ALBUMIN 3.1 g/dl (3.4-5.0); BLOOD UREA NITROGEN 17.6 mg/dL (7-18); CALCIUM 9.6 mg/dL (8.5-10.1)
[2021-01-29 08:12] LABS: CREATININE 0.5 mg/dL (0.55-1.3)
[2021-01-29 08:13] LABS: PHOSPHOROUS 2.3 mg/dL (2.5-4.9)
[2021-01-29 08:14] LABS: BILIRUBIN,TOTAL 0.8 mg/dL (0.2-1)
[2021-01-29 08:37] LABS: TOT PROT 6.6 g/dl (6.4-8.2)
[2021-01-29] MEDS: METOPROLOL TARTRATE 50 MG TABLET (FP) PO SCH ×2 (10:54→22:10)
[2021-01-29] MEDS ORDERED: ACETAMINOPHEN 325 MG TABLET (FP) PO PRN (13:21)
[2021-01-29] MEDS: DULoxetine HCL 60 MG CAPSULE.DR PO SCH (16:01)
[2021-01-29] MEDS: QUINAPRIL HCL 20 MG TABLET PO SCH (16:02)
[2021-01-29] MEDS ORDERED: SODIUM CHLORIDE 500 ML IV ONE (19:45)
[2021-01-29] MEDS ORDERED: ATORVASTATIN CA 10 MG TABLET (FP) PO SCH (22:00)
[2021-01-29] MEDS: ATORVASTATIN CA 10 MG TABLET (FP) PO SCH (22:10)
[2021-01-30 07:06] LABS: HEMATOCRIT 41.4 % (32.4-45.2); HEMOGLOBIN 14.1 GM/dL (10.7-15.3); MCH 33.6 pg (25.7-33.7); MEAN CELL VOLUME 98.9 fl (80-96); PLATELET COUNT 166 K/MM3 (134-434); RBC 4.19 M/mm3 (3.60-5.2); WHITE BLOOD COUNT 6.5 K/mm3 (4.0-10.0)
[2021-01-30 07:31] LABS: POTASSIUM 3.3 mmol/L (3.5-5.1)
[2021-01-30 07:33] LABS: BLOOD UREA NITROGEN 18.6 mg/dL (7-18); CALCIUM 9.7 mg/dL (8.5-10.1)
[2021-01-30 07:34] LABS: ALBUMIN 3.2 g/dl (3.4-5.0); MAGNESIUM 2.1 mg/dL (1.8-2.4)
[2021-01-30 07:36] LABS: CREATININE 0.6 mg/dL (0.55-1.3)
[2021-01-30 07:37] LABS: PHOSPHOROUS 2.2 mg/dL (2.5-4.9)
[2021-01-30 07:38] LABS: TOT PROT 6.8 g/dl (6.4-8.2)
[2021-01-30] MEDS ORDERED: NAPH,MB-DB/K PH,MBDB POWDER PACKET PO ONE (08:30)
[2021-01-30] MEDS ORDERED: DULoxetine HCL 30 MG CAPSULE.DR PO ONE (09:24)
[2021-01-30] MEDS ORDERED: PT OWN MED DRAWER 7, Y5N ONE ×2 (09:24→22:39)
[2021-01-30] MEDS ORDERED: POTASSIUM CHLORIDE TABS 20 MEQ TABLET.ER (FP) PO ONE (09:46)
[2021-01-30] MEDS: QUINAPRIL HCL 20 MG TABLET PO SCH (09:57)
[2021-01-30] MEDS: GABAPENTIN 300 MG CAPSULE PO SCH (09:58)
[2021-01-30] MEDS: APIXABAN 5 MG TABLET PO SCH ×2 (09:58→22:40)
[2021-01-30] MEDS: ASPIRIN 81 MG CHEWABLE TABLETS PO SCH (09:58)
[2021-01-30] MEDS: DULoxetine HCL 60 MG CAPSULE.DR PO SCH (09:58)
[2021-01-30] MEDS: POTASSIUM CHLORIDE TABS 20 MEQ TABLET.ER (FP) PO ONE ×2 (09:58→09:59)
[2021-01-30] MEDS: FUROSEMIDE 40 MG TABLET (FP) PO SCH (09:59)
[2021-01-30] MEDS: METOPROLOL TARTRATE 50 MG TABLET (FP) PO SCH ×2 (09:59→22:40)
[2021-01-30] MEDS: POTASSIUM CHLORIDE TABS 10 MEQ TABLET.ER (FP) PO SCH (09:59)
[2021-01-30] MEDS: LYTES/YERBA SANTA 240 ML BOTTLE MM SCH ×2 (13:25→22:40)
[2021-01-30] MEDS: ATORVASTATIN CA 10 MG TABLET (FP) PO SCH (22:41)
[2021-01-31 06:58] LABS: HEMATOCRIT 39.8 % (32.4-45.2); HEMOGLOBIN 13.4 GM/dL (10.7-15.3); MCH 33.3 pg (25.7-33.7); MCHC 33.6 g/dl (32.0-36.0); MEAN CELL VOLUME 99.2 fl (80-96); MEAN PLT VOLUME 9.2 fl (7.5-11.1); PLATELET COUNT 151 K/MM3 (134-434); RBC 4.01 M/mm3 (3.60-5.2); RDW 13.7 % (11.6-15.6); WHITE BLOOD COUNT 5.8 K/mm3 (4.0-10.0)
[2021-01-31] MEDS: LYTES/YERBA SANTA 240 ML BOTTLE MM SCH (07:06)
[2021-01-31 07:17] LABS: POTASSIUM 3.5 mmol/L (3.5-5.1)
[2021-01-31 07:22] LABS: CALCIUM 9.6 mg/dL (8.5-10.1); MAGNESIUM 2.1 mg/dL (1.8-2.4)
[2021-01-31 07:26] LABS: BILIRUBIN,TOTAL 0.6 mg/dL (0.2-1); CREATININE 0.5 mg/dL (0.55-1.3); PHOSPHOROUS 2.5 mg/dL (2.5-4.9); TOT PROT 6.4 g/dl (6.4-8.2)
[2021-01-31] MEDS ORDERED: DULoxetine HCL 30 MG CAPSULE.DR PO ONE (09:21)
[2021-01-31] MEDS ORDERED: PT OWN MED DRAWER 7, Y5N ONE (09:22)
[2021-01-31] MEDS: POTASSIUM CHLORIDE TABS 10 MEQ TABLET.ER (FP) PO SCH (09:52)
[2021-01-31] MEDS: ASPIRIN 81 MG CHEWABLE TABLETS PO SCH (09:52)
[2021-01-31] MEDS: DULoxetine HCL 60 MG CAPSULE.DR PO SCH (09:53)
[2021-01-31] MEDS: GABAPENTIN 300 MG CAPSULE PO SCH (09:53)
[2021-01-31] MEDS: METOPROLOL TARTRATE 50 MG TABLET (FP) PO SCH (09:53)
[2021-01-31] MEDS: FUROSEMIDE 40 MG TABLET (FP) PO SCH (09:53)
[2021-01-31] MEDS: QUINAPRIL HCL 20 MG TABLET PO SCH (09:54)
[2021-01-31] MEDS: APIXABAN 5 MG TABLET PO SCH (09:54)
[2021-01-31] MEDS ORDERED: POTASSIUM CHLORIDE TABS 20 MEQ TABLET.ER (FP) PO ONE (12:34)
[2021-01-31 12:42] VITALS: BP 155/84; PULSE 81; TEMP 96.3
== END 2021-01-31 15:18 | disposition home or self-care (01) | DRG 689 ==
LOC: JER 16:15 → JERBED 22:32 → J4W 01-29 10:21
PROVIDERS: ADMIT Hospitalist; ATTEND Internal Medicine
DX: N39.0 Urinary tract infection, site not specified (principal); G93.41 Metabolic encephalopathy; G45.9 Transient cerebral ischemic attack, unspecified; E87.1 Hypo-osmolality and hyponatremia; I50.30 Unspecified diastolic (congestive) heart failure; M21.379 Foot drop, unspecified foot; I48.0 Paroxysmal atrial fibrillation; M48.00 Spinal stenosis, site unspecified; E87.6 Hypokalemia; F32.9 Major depressive disorder, single episode, unspecified; I11.0 Hypertensive heart disease with heart failure; R53.1 Weakness
CPT/HCPCS: 36415; 70450-TC; 70551-TC; 80048; 80053; 80061; 81003; 82136; 82436; 82550; 82607; 82728; 82746; 82962; 83090; 83721; 83735; 83918; 83930; 83935; 84100; 84300; 84425; 84484; 85025; 85027; 85610; 85730; 87081; 87086; 87186; 93005; 93010; 93306-TC; 93880-TC; 93971-TC; 97116-GP; 97161-GP; 99285-25; C9803; U0003

== ENCOUNTER 2021-03-08 07:13 | Inpatient (IN) | payer OTHER, MEDICARE ==
[2021-03-08] MEDS ORDERED: CEFTRIAXONE 1,000 MG in DEXTROSE 5%-WATER - 50 ML IVPB ONE (07:49)
[2021-03-08] MEDS ORDERED: CEFTRIAXONE 1 GM/50 ML BAG ONE (08:01)
[2021-03-08 08:34] LABS: BASO % 0.6 % (0-2.0); EOS % 1.7 % (0-4.5); HEMOGLOBIN 13.2 GM/dL (10.7-15.3); LYMPH % 7.2 % (8-40); MCH 34.1 pg (25.7-33.7); MCHC 34.7 g/dl (32.0-36.0); MEAN CELL VOLUME 98.3 fl (80-96); MEAN PLT VOLUME 9.6 fl (7.5-11.1); MONO % 8.5 % (3.8-10.2); PLATELET COUNT 165 K/MM3 (134-434); RBC 3.86 M/mm3 (3.60-5.2); RDW 14.1 % (11.6-15.6)
[2021-03-08 08:44] LABS: INR 1.79 (0.83-1.09); PROTHROMBIN TIME (PATIENT) 21.7 SEC (9.7-13.0)
[2021-03-08 08:47] LABS: ACTIVATED PTT 37.6 SECONDS (25.2-36.5)
[2021-03-08 08:57] LABS: CALCIUM 10.1 mg/dL (8.5-10.1)
[2021-03-08 08:58] LABS: ALBUMIN 3.4 g/dl (3.4-5.0)
[2021-03-08 09:01] LABS: CREATININE 0.8 mg/dL (0.55-1.3)
[2021-03-08 09:03] LABS: BILIRUBIN,TOTAL 0.9 mg/dL (0.2-1); TOT PROT 6.9 g/dl (6.4-8.2)
[2021-03-08] MEDS ORDERED: ACETAMINOPHEN 1000 MG/100 ML VIAL (NON FORMULARY) IVPB ONE (09:08)
[2021-03-08] MEDS ORDERED: ACETAMINOPHEN INJECTION 100 ML IVPB ONE (09:32)
[2021-03-08 09:46] LABS: PH,URINE 8.5 (5.0-8.0); URINE BILIRUBIN 3+ (NEGATIVE); URINE GLUCOSE (UA) Trace (NEGATIVE); URINE KETONE 2+ (NEGATIVE); URINE LEUK ESTERASE 3+ (NEGATIVE); URINE NITRITE Negative (NEGATIVE); URINE PROTEIN 3+ (NEGATIVE); URINE UROBILINOGEN >=8.0 E.U./dl mg/dL (0.2-1.0)
[2021-03-08 09:48] LABS: URINE APPEARANCE Turbid; URINE COLOR Other
[2021-03-08 10:08] LABS: URINE APPEARANCE Slightly Cloudy; URINE BILIRUBIN Negative (NEGATIVE); URINE COLOR Amber; URINE GLUCOSE (UA) Negative (NEGATIVE); URINE PROTEIN 3+ (NEGATIVE)
[2021-03-08 10:38] LABS: EPI CELLS 75.4 /uL (0-25.1); HYALINE CASTS 91.46 /uL (0-3.1); URINE BACTERIA 14 /uL (0-1359); URINE RBC 2021.8 /uL (0-23.9); URINE WBC 61 /uL (0-25.8)
[2021-03-08] MEDS ORDERED: ACETAMINOPHEN 325 MG TABLET (FP) PO PRN (16:06)
[2021-03-08] MEDS: SODIUM CHLORIDE 1,000 ML IV SCH (17:05)
[2021-03-08] MEDS ORDERED: ACETAMINOPHEN 325 MG TABLET (FP) ONE (18:45)
[2021-03-08] MEDS: QUINAPRIL HCL 20 MG TABLET PO SCH (21:25)
[2021-03-08] MEDS: ATORVASTATIN CA 40 MG TABLET (FP) PO SCH (22:24)
[2021-03-08] MEDS: METOPROLOL TARTRATE 50 MG TABLET (FP) PO SCH (22:24)
[2021-03-09 03:42] VITALS: BMI 27.4
[2021-03-09] MEDS ORDERED: PT OWN MED DRAWER 7, Y5N ONE (06:31)
[2021-03-09 09:51] LABS: BASO % 1.1 % (0-2.0); EOS % 4.1 % (0-4.5); HEMOGLOBIN 12.2 GM/dL (10.7-15.3); LYMPH % 11.6 % (8-40); MCH 33.4 pg (25.7-33.7); MCHC 33.9 g/dl (32.0-36.0); MEAN CELL VOLUME 98.6 fl (80-96); MEAN PLT VOLUME 8.8 fl (7.5-11.1); MONO % 11.5 % (3.8-10.2); NEUT % 71.7 % (42.8-82.8); PLATELET COUNT 169 K/MM3 (134-434); RBC 3.65 M/mm3 (3.60-5.2); RDW 14.2 % (11.6-15.6)
[2021-03-09] MEDS ORDERED: cefTRIAXone SODIUM 1 GM VIAL ONE (10:16)
[2021-03-09] MEDS ORDERED: DEXTROSE 5%-WATER - 50 ML IVPB ONE (10:17)
[2021-03-09] MEDS: CEFTRIAXONE 1 GM in DEXTROSE 5%-WATER - 50 ML IVPB SCH (10:22)
[2021-03-09] MEDS: GABAPENTIN 300 MG CAPSULE PO SCH (10:23)
[2021-03-09] MEDS: METOPROLOL TARTRATE 50 MG TABLET (FP) PO SCH ×2 (10:23→21:24)
[2021-03-09 10:46] LABS: ALBUMIN 3.1 g/dl (3.4-5.0); BLOOD UREA NITROGEN 16.6 mg/dL (7-18); CALCIUM 9.8 mg/dL (8.5-10.1)
[2021-03-09 10:47] LABS: MAGNESIUM 2.2 mg/dL (1.8-2.4)
[2021-03-09 10:49] LABS: CREATININE 0.7 mg/dL (0.55-1.3); PHOSPHOROUS 2.8 mg/dL (2.5-4.9)
[2021-03-09 10:51] LABS: BILIRUBIN,TOTAL 0.9 mg/dL (0.2-1); TOT PROT 6.1 g/dl (6.4-8.2)
[2021-03-09] MEDS: SODIUM CHLORIDE 1,000 ML IV SCH (14:59)
[2021-03-09] MEDS: DULoxetine HCL 30 MG CAPSULE.DR PO SCH (16:11)
[2021-03-09] MEDS: ATORVASTATIN CA 40 MG TABLET (FP) PO SCH (21:24)
[2021-03-10] MEDS: QUINAPRIL HCL 20 MG TABLET PO SCH ×2 (09:03→10:58)
[2021-03-10 09:19] LABS: BASO % 0.8 % (0-2.0); EOS % 3.7 % (0-4.5); HEMATOCRIT 32.2 % (32.4-45.2); LYMPH % 13.3 % (8-40); MCH 33.6 pg (25.7-33.7); MCHC 34.1 g/dl (32.0-36.0); MEAN CELL VOLUME 98.5 fl (80-96); MEAN PLT VOLUME 8.8 fl (7.5-11.1); MONO % 13.4 % (3.8-10.2); NEUT % 68.8 % (42.8-82.8); PLATELET COUNT 158 K/MM3 (134-434); RBC 3.27 M/mm3 (3.60-5.2); RDW 14.5 % (11.6-15.6); WHITE BLOOD COUNT 5.9 K/mm3 (4.0-10.0)
[2021-03-10 09:50] LABS: CALCIUM 9.1 mg/dL (8.5-10.1)
[2021-03-10 09:51] LABS: ALBUMIN 2.8 g/dl (3.4-5.0); BLOOD UREA NITROGEN 16.5 mg/dL (7-18)
[2021-03-10 09:54] LABS: CREATININE 0.6 mg/dL (0.55-1.3)
[2021-03-10 09:55] LABS: BILIRUBIN,TOTAL 0.9 mg/dL (0.2-1); TOT PROT 5.6 g/dl (6.4-8.2)
[2021-03-10] MEDS ORDERED: DEXTROSE 5%-WATER - 50 ML IVPB ONE (10:54)
[2021-03-10] MEDS ORDERED: PT OWN MED DRAWER 7, Y5N ONE (10:54)
[2021-03-10] MEDS ORDERED: cefTRIAXone SODIUM 1 GM VIAL ONE (10:54)
[2021-03-10] MEDS: CEFTRIAXONE 1 GM in DEXTROSE 5%-WATER - 50 ML IVPB SCH (10:56)
[2021-03-10] MEDS: GABAPENTIN 300 MG CAPSULE PO SCH (10:57)
[2021-03-10] MEDS: METOPROLOL TARTRATE 50 MG TABLET (FP) PO SCH ×2 (10:57→21:45)
[2021-03-10] MEDS: DULoxetine HCL 30 MG CAPSULE.DR PO SCH (10:58)
[2021-03-10] MEDS: ATORVASTATIN CA 40 MG TABLET (FP) PO SCH (21:45)
[2021-03-11] MEDS ORDERED: PT OWN MED DRAWER 7, Y5N ONE (09:09)
[2021-03-11] MEDS ORDERED: DEXTROSE 5%-WATER - 50 ML IVPB ONE (09:10)
[2021-03-11] MEDS ORDERED: cefTRIAXone SODIUM 1 GM VIAL ONE (09:10)
[2021-03-11 09:22] LABS: EOS % 3.5 % (0-4.5); HEMATOCRIT 32.5 % (32.4-45.2); LYMPH % 13.8 % (8-40); MCH 33.7 pg (25.7-33.7); MCHC 33.9 g/dl (32.0-36.0); MEAN CELL VOLUME 99.4 fl (80-96); MEAN PLT VOLUME 9.3 fl (7.5-11.1); MONO % 12.7 % (3.8-10.2); PLATELET COUNT 156 K/MM3 (134-434); RBC 3.27 M/mm3 (3.60-5.2); RDW 14.4 % (11.6-15.6); WHITE BLOOD COUNT 5.6 K/mm3 (4.0-10.0)
[2021-03-11] MEDS: CEFTRIAXONE 1 GM in DEXTROSE 5%-WATER - 50 ML IVPB SCH (09:26)
[2021-03-11] MEDS: GABAPENTIN 300 MG CAPSULE PO SCH (09:27)
[2021-03-11] MEDS: METOPROLOL TARTRATE 50 MG TABLET (FP) PO SCH ×2 (09:27→21:50)
[2021-03-11] MEDS: QUINAPRIL HCL 20 MG TABLET PO SCH (09:28)
[2021-03-11] MEDS: DULoxetine HCL 30 MG CAPSULE.DR PO SCH (09:29)
[2021-03-11 10:16] LABS: BLOOD UREA NITROGEN 14.1 mg/dL (7-18); CALCIUM 9.6 mg/dL (8.5-10.1)
[2021-03-11 10:17] LABS: ALBUMIN 2.8 g/dl (3.4-5.0)
[2021-03-11 10:19] LABS: CREATININE 0.6 mg/dL (0.55-1.3)
[2021-03-11 10:44] LABS: BILIRUBIN,TOTAL 0.9 mg/dL (0.2-1); TOT PROT 5.9 g/dl (6.4-8.2)
[2021-03-11] MEDS ORDERED: SODIUM CHLORIDE 250 ML IV STA (15:03)
[2021-03-11] MEDS ORDERED: LIDOCAINE 5% TOPICAL PATCH TP ONE (17:45)
[2021-03-11] MEDS: LIDOCAINE PATCH REMOVAL MC SCH (21:50)
[2021-03-12 08:39] LABS: BASO % 1.3 % (0-2.0); EOS % 3.4 % (0-4.5); HEMATOCRIT 33.7 % (32.4-45.2); HEMOGLOBIN 11.3 GM/dL (10.7-15.3); MCH 33.4 pg (25.7-33.7); MCHC 33.6 g/dl (32.0-36.0); MEAN CELL VOLUME 99.2 fl (80-96); MEAN PLT VOLUME 9.3 fl (7.5-11.1); NEUT % 71.3 % (42.8-82.8); PLATELET COUNT 170 K/MM3 (134-434); RDW 14.6 % (11.6-15.6); WHITE BLOOD COUNT 6.3 K/mm3 (4.0-10.0)
[2021-03-12 08:59] LABS: CALCIUM 9.3 mg/dL (8.5-10.1)
[2021-03-12 09:00] LABS: ALBUMIN 2.9 g/dl (3.4-5.0); BLOOD UREA NITROGEN 11.1 mg/dL (7-18)
[2021-03-12 09:03] LABS: CREATININE 0.5 mg/dL (0.55-1.3)
[2021-03-12 09:04] LABS: BILIRUBIN,TOTAL 0.8 mg/dL (0.2-1)
[2021-03-12] MEDS ORDERED: PT OWN MED DRAWER 7, Y5N ONE (09:28)
[2021-03-12] MEDS: QUINAPRIL HCL 20 MG TABLET PO SCH (09:55)
[2021-03-12] MEDS: DULoxetine HCL 30 MG CAPSULE.DR PO SCH (09:55)
[2021-03-12] MEDS: METOPROLOL TARTRATE 50 MG TABLET (FP) PO SCH ×2 (09:56→21:28)
[2021-03-12] MEDS: GABAPENTIN 300 MG CAPSULE PO SCH (09:56)
[2021-03-12 12:29] LABS: INR 1.15 (0.83-1.09); PROTHROMBIN TIME (PATIENT) 14.1 SEC (9.7-13.0)
[2021-03-12 19:38] LABS: EPI CELLS 2 /uL (0-25.1); HYALINE CASTS 0 /uL (0-3.1); PH,URINE 5.5 (5.0-8.0); URINE APPEARANCE CLEAR; URINE BACTERIA 10 /uL (0-1359); URINE BILIRUBIN NEGATIVE (NEGATIVE); URINE COLOR YELLOW; URINE GLUCOSE (UA) NEGATIVE (NEGATIVE); URINE KETONE NEGATIVE (NEGATIVE); URINE LEUK ESTERASE TRACE (NEGATIVE); URINE NITRITE NEGATIVE (NEGATIVE); URINE PROTEIN NEGATIVE (NEGATIVE); URINE RBC 9 /uL (0-23.9); URINE WBC 13 /uL (0-25.8)
[2021-03-12] MEDS: APIXABAN 5 MG TABLET PO SCH (21:28)
[2021-03-12] MEDS: LIDOCAINE PATCH REMOVAL MC SCH (21:49)
[2021-03-13] MEDS ORDERED: PT OWN MED DRAWER 7, Y5N ONE (09:51)
[2021-03-13] MEDS: QUINAPRIL HCL 20 MG TABLET PO SCH (09:59)
[2021-03-13] MEDS: DULoxetine HCL 30 MG CAPSULE.DR PO SCH (10:00)
[2021-03-13] MEDS: GABAPENTIN 300 MG CAPSULE PO SCH (10:00)
[2021-03-13] MEDS: METOPROLOL TARTRATE 50 MG TABLET (FP) PO SCH (10:00)
[2021-03-13] MEDS: APIXABAN 5 MG TABLET PO SCH (10:00)
[2021-03-13 10:19] LABS: CALCIUM 10.1 mg/dL (8.5-10.1)
[2021-03-13 10:20] LABS: ALBUMIN 3.2 g/dl (3.4-5.0); BLOOD UREA NITROGEN 9.6 mg/dL (7-18)
[2021-03-13 10:23] LABS: CREATININE 0.5 mg/dL (0.55-1.3)
[2021-03-13 10:25] LABS: TOT PROT 6.7 g/dl (6.4-8.2)
[2021-03-13 10:26] LABS: BILIRUBIN,TOTAL 2.1 mg/dL (0.2-1)
[2021-03-13] MEDS ORDERED: POTASSIUM CHLORIDE TABS 20 MEQ TABLET.ER (FP) PO ONE (12:15)
[2021-03-13 13:48] LABS: EPI CELLS 29 /uL (0-25.1); HYALINE CASTS 3 /uL (0-3.1); PH,URINE 5.5 (5.0-8.0); URINE APPEARANCE CLEAR; URINE BACTERIA 12 /uL (0-1359); URINE BILIRUBIN 1+ (NEGATIVE); URINE COLOR DK YELLOW; URINE GLUCOSE (UA) NEGATIVE (NEGATIVE); URINE KETONE NEGATIVE (NEGATIVE); URINE LEUK ESTERASE 1+ (NEGATIVE); URINE NITRITE NEGATIVE (NEGATIVE); URINE PROTEIN 1+ (NEGATIVE); URINE RBC 73 /uL (0-23.9); URINE WBC 128 /uL (0-25.8)
[2021-03-13 18:24] VITALS: BP 119/66; PULSE 71; TEMP 98
== END 2021-03-13 19:23 | disposition home or self-care (01) | DRG 699 ==
LOC: JER 07:13 → SUPCPDRO 07:13 → JERBED 09:49 → J5S 21:13
PROVIDERS: ADMIT Internal Medicine
DX: T83.511A Infection and inflammatory reaction due to indwelling urethral catheter, initial encounter (principal); I50.32 Chronic diastolic (congestive) heart failure; N17.9 Acute kidney failure, unspecified; N39.0 Urinary tract infection, site not specified; I48.91 Unspecified atrial fibrillation; Z79.01 Long term (current) use of anticoagulants; I11.0 Hypertensive heart disease with heart failure; Z86.73 Personal history of transient ischemic attack (TIA), and cerebral infarction without residual deficits; N31.9 Neuromuscular dysfunction of bladder, unspecified; R31.0 Gross hematuria; F32.9 Major depressive disorder, single episode, unspecified; G62.9 Polyneuropathy, unspecified; E78.5 Hyperlipidemia, unspecified; Y84.6 Urinary catheterization as the cause of abnormal reaction of the patient, or of later complication, without mention of misadventure at the time of the procedure
CPT/HCPCS: 36415; 71045-TC-FY; 74177-TC; 76856-TC; 80053; 81003; 82550; 82570; 83735; 84100; 84156; 84484; 85025; 85610; 85730; 87040; 87081; 87086; 87186; 93005; 93010; 97161-GP; 99285-25; C9803; J0131; Q9967; U0003; U0005

== ENCOUNTER 2021-03-19 09:43 | Emergency (ER) | payer OTHER, MEDICARE ==
[2021-03-19 10:38] VITALS: BMI 28.3
[2021-03-19 12:26] LABS: EPI CELLS 2 /uL (0-25.1); HYALINE CASTS 8 /uL (0-3.1); PH,URINE 7.5 (5.0-8.0); URINE APPEARANCE CLOUDY; URINE BACTERIA 12 /uL (0-1359); URINE BILIRUBIN NEGATIVE (NEGATIVE); URINE COLOR YELLOW; URINE GLUCOSE (UA) NEGATIVE (NEGATIVE); URINE KETONE NEGATIVE (NEGATIVE); URINE LEUK ESTERASE 3+ (NEGATIVE); URINE NITRITE NEGATIVE (NEGATIVE); URINE PROTEIN NEGATIVE (NEGATIVE); URINE WBC 595 /uL (0-25.8)
[2021-03-19 13:20] LABS: URINE RBC 370.3 /uL (0-23.9); YEAST MODERATE (NEGATIVE)
[2021-03-19 19:00] VITALS: PULSE 80; TEMP 98.2
[2021-03-19 19:51] VITALS: BP 165/105
== END 2021-03-19 19:00 | disposition home or self-care (01) ==
LOC: JER 09:43
DX: R31.0 Gross hematuria (principal)
CPT/HCPCS: 81003; 87086; 99283-25

== ENCOUNTER 2021-08-29 17:50 | Emergency (ER) | payer OTHER, MEDICARE ==
[2021-08-29 19:06] VITALS: TEMP 97.4; BMI 29.1
[2021-08-29 20:50] LABS: EPI CELLS >36 /uL (0-25.1); HYALINE CASTS 8 /uL (0-3.1); URINE APPEARANCE TURBID; URINE BILIRUBIN NEGATIVE (NEGATIVE); URINE COLOR YELLOW; URINE GLUCOSE (UA) NEGATIVE (NEGATIVE); URINE KETONE NEGATIVE (NEGATIVE); URINE LEUK ESTERASE 3+ (NEGATIVE); URINE NITRITE POSITIVE (NEGATIVE); URINE PROTEIN 1+ (NEGATIVE); URINE RBC 338 /uL (0-23.9); URINE WBC 15445 /uL (0-25.8)
[2021-08-29 21:19] LABS: URINE BACTERIA 1355.1 /uL (0-1359)
[2021-08-29 23:43] VITALS: BP 118/70; PULSE 76
== END 2021-08-29 23:51 | disposition home or self-care (01) ==
LOC: JER 17:50
DX: T83.098A Other mechanical complication of other urinary catheter, initial encounter (principal)
CPT/HCPCS: 81003; 87086; 87186; 99283-25

== ENCOUNTER 2021-12-30 12:08 | Observation (INO) | payer OTHER, MEDICARE ==
[2021-12-30 13:22] VITALS: BMI 32.8
[2021-12-30 15:06] LABS: BASO % 1.6 % (0-2.0); EOS % 1.9 % (0-4.5); HEMATOCRIT 39.6 % (32.4-45.2); HEMOGLOBIN 13.1 GM/dL (10.7-15.3); LYMPH % 16.2 % (8-40); MCH 32.8 pg (25.7-33.7); MCHC 33.2 g/dl (32.0-36.0); MEAN CELL VOLUME 98.7 fl (80-96); MEAN PLT VOLUME 8.7 fl (7.5-11.1); MONO % 11.7 % (3.8-10.2); NEUT % 68.6 % (42.8-82.8); PLATELET COUNT 165 10^3/uL (134-434); RBC 4.01 M/mm3 (3.60-5.2); WHITE BLOOD COUNT 5.2 K/mm3 (4.0-10.0)
[2021-12-30 15:28] LABS: ALBUMIN 3.4 g/dl (3.4-5.0); BLOOD UREA NITROGEN 20.4 mg/dL (7-18); CALCIUM 10.2 mg/dL (8.5-10.1)
[2021-12-30 15:31] LABS: CREATININE 0.7 mg/dL (0.55-1.3)
[2021-12-30 15:33] LABS: BILIRUBIN,TOTAL 0.4 mg/dL (0.2-1)
[2021-12-30 15:48] LABS: ACTIVATED PTT 39.8 SECONDS (25.2-36.5); INR 1.5 (0.83-1.09); PROTHROMBIN TIME (PATIENT) 17.3 SEC (9.7-13.0)
[2021-12-30] MEDS ORDERED: SODIUM CHLORIDE 250 ML IV STA (23:40)
[2021-12-30] MEDS ORDERED: APIXABAN 5 MG TABLET PO SCH (23:45)
[2021-12-31] MEDS ORDERED: APIXABAN 5 MG TABLET ONE (00:28)
[2021-12-31] MEDS ORDERED: MELATONIN 5 MG TABLETS PO PRN (01:16)
[2021-12-31 08:10] LABS: BASO % 1.9 % (0-2.0); EOS % 2.6 % (0-4.5); HEMATOCRIT 38.4 % (32.4-45.2); HEMOGLOBIN 12.3 GM/dL (10.7-15.3); LYMPH % 23.8 % (8-40); MCH 32.2 pg (25.7-33.7); MEAN CELL VOLUME 100.5 fl (80-96); MEAN PLT VOLUME 9.3 fl (7.5-11.1); MONO % 13.3 % (3.8-10.2); NEUT % 58.4 % (42.8-82.8); PLATELET COUNT 161 10^3/uL (134-434); RBC 3.82 M/mm3 (3.60-5.2); RDW 14.7 % (11.6-15.6); WHITE BLOOD COUNT 4.7 K/mm3 (4.0-10.0)
[2021-12-31 08:28] LABS: CALCIUM 10.4 mg/dL (8.5-10.1)
[2021-12-31 08:29] LABS: ALBUMIN 3.1 g/dl (3.4-5.0); BLOOD UREA NITROGEN 19.6 mg/dL (7-18); MAGNESIUM 2.3 mg/dL (1.8-2.4)
[2021-12-31 08:32] LABS: BILIRUBIN,TOTAL 0.5 mg/dL (0.2-1); CREATININE 0.6 mg/dL (0.55-1.3); PHOSPHOROUS 2.5 mg/dL (2.5-4.9)
[2021-12-31 08:36] LABS: TOT PROT 6.2 g/dl (6.4-8.2)
[2021-12-31] MEDS ORDERED: HEPARIN NA (PORCINE) 5,000 UNITS/ML 1ML VIAL IVPUSH PRN ×2 (09:04)
[2021-12-31] MEDS ORDERED: HEPARIN INFUSION - 25,000 UNITS/500 ML INFUS.BAG IVPB SCH (09:15)
[2021-12-31] MEDS ORDERED: POLYETHYLENE GLYCOL (HEALTHYLAX) 3350 17 GM PACKET PO SCH (11:00)
[2021-12-31] MEDS ORDERED: POLYETHYLENE GLYCOL (HEALTHYLAX) 3350 17 GM PACKET ONE (11:41)
[2021-12-31 17:38] VITALS: TEMP 98.9
[2021-12-31 21:43] VITALS: BP 148/93; PULSE 88
[2021-12-31] MEDS ORDERED: APIXABAN 5 MG TABLET PO SCH (22:00)
== END 2022-01-01 01:24 | disposition home or self-care (01) ==
LOC: JER 12:08 → JERBED 22:12
PROVIDERS: ADMIT Hospitalist; ATTEND Internal Medicine
PROC: 3E0337Z Introduction of Electrolytic and Water Balance Substance into Peripheral Vein, Percutaneous Approach (ICD-10-PCS; principal; 2021-12-30)
DX: L81.9 Disorder of pigmentation, unspecified (principal); E66.9 Obesity, unspecified; Z68.32 Body mass index [BMI] 32.0-32.9, adult; I48.91 Unspecified atrial fibrillation; I11.0 Hypertensive heart disease with heart failure; I50.30 Unspecified diastolic (congestive) heart failure; I27.20 Pulmonary hypertension, unspecified; Z79.01 Long term (current) use of anticoagulants; Z87.891 Personal history of nicotine dependence
CPT/HCPCS: 36415; 71045-TC-FY; 80053; 82550; 83735; 84100; 84484; 85025; 85610; 85730; 93005; 93010; 93925-TC; 93970-TC; 96360; 99285-25; C9803; G0378; U0003; U0005

== ENCOUNTER 2022-01-24 16:40 | Emergency (ER) | payer OTHER, MEDICARE ==
[2022-01-24 17:14] VITALS: BP 135/99; PULSE 78; TEMP 97.8; BMI 29.3
== END 2022-01-24 19:52 | disposition home or self-care (01) ==
LOC: FER 16:40
PROC: 0T2BX0Z Change Drainage Device in Bladder, External Approach (ICD-10-PCS; principal; 2022-01-24)
DX: T83.9XXA Unspecified complication of genitourinary prosthetic device, implant and graft, initial encounter (principal)
CPT/HCPCS: 99283-25

== ENCOUNTER 2022-02-11 21:35 | Emergency (ER) | payer OTHER, MEDICARE ==
[2022-02-11 22:18] VITALS: TEMP 97.4; BMI 29.1
[2022-02-12 01:32] VITALS: BP 117/64; PULSE 67
== END 2022-02-12 01:37 | disposition home or self-care (01) ==
LOC: FER 21:35
DX: T83.028A Displacement of other urinary catheter, initial encounter (principal)
CPT/HCPCS: 99281-25

== ENCOUNTER 2022-04-23 11:20 | Emergency (ER) | payer OTHER, MEDICARE ==
[2022-04-23 11:47] VITALS: TEMP 97.7; BMI 26.6
[2022-04-23] MEDS ORDERED: ACETAMINOPHEN 325 MG TABLET (FP) PO ONE (13:52)
[2022-04-23 14:01] LABS: BASO % 1.2 % (0-2.0); EOS % 0.3 % (0-4.5); HEMATOCRIT 41.3 % (32.4-45.2); HEMOGLOBIN 13.5 GM/dL (10.7-15.3); LYMPH % 9.7 % (8-40); MCH 32.4 pg (25.7-33.7); MCHC 32.8 g/dl (32.0-36.0); MEAN CELL VOLUME 98.6 fl (80-96); MONO % 6.4 % (3.8-10.2); NEUT % 82.4 % (42.8-82.8); PLATELET COUNT 177 10^3/uL (134-434); RBC 4.18 M/mm3 (3.60-5.2); RDW 14.9 % (11.6-15.6); WHITE BLOOD COUNT 7.4 K/mm3 (4.0-10.0)
[2022-04-23 14:22] LABS: ALBUMIN 3.6 g/dl (3.4-5.0); CALCIUM 10.4 mg/dL (8.5-10.1)
[2022-04-23 14:23] LABS: BLOOD UREA NITROGEN 16.5 mg/dL (7-18)
[2022-04-23 14:25] LABS: CREATININE 0.6 mg/dL (0.55-1.3)
[2022-04-23 14:27] LABS: BILIRUBIN,TOTAL 0.7 mg/dL (0.2-1); TOT PROT 7.3 g/dl (6.4-8.2)
[2022-04-23] MEDS ORDERED: ACETAMINOPHEN 325 MG TABLET (FP) ONE (14:38)
[2022-04-23 16:40] LABS: EPI CELLS 2 /uL (0-25.1); HYALINE CASTS 0 /uL (0-3.1); PH,URINE 6.5 (5.0-8.0); URINE APPEARANCE CLOUDY; URINE BACTERIA 6413 /uL (0-1359); URINE BILIRUBIN NEGATIVE (NEGATIVE); URINE COLOR YELLOW; URINE GLUCOSE (UA) NEGATIVE (NEGATIVE); URINE KETONE NEGATIVE (NEGATIVE); URINE LEUK ESTERASE 1+ (NEGATIVE); URINE NITRITE POSITIVE (NEGATIVE); URINE PROTEIN NEGATIVE (NEGATIVE); URINE RBC 257 /uL (0-23.9); URINE UROBILINOGEN 0.2 mg/dL (0.2-1.0); URINE WBC 1090 /uL (0-25.8)
[2022-04-23 23:31] VITALS: BP 153/93; PULSE 73
== END 2022-04-23 23:34 | disposition home or self-care (01) ==
LOC: JER 11:20
DX: N39.0 Urinary tract infection, site not specified (principal)
CPT/HCPCS: 36415; 80053; 81003; 85025; 87086; 87186; 99283-25

== ENCOUNTER 2022-12-17 16:12 | Inpatient (IN) | payer OTHER, MEDICARE ==
[2022-12-17 17:30] LABS: BASO % 1.2 % (0-2.0); EOS % 1.3 % (0-4.5); HEMATOCRIT 43.3 % (32.4-45.2); HEMOGLOBIN 14.1 GM/dL (10.7-15.3); LYMPH % 21.3 % (8-40); MCH 32.4 pg (25.7-33.7); MCHC 32.5 g/dl (32.0-36.0); MEAN CELL VOLUME 99.5 fl (80-96); MEAN PLT VOLUME 8.4 fl (7.5-11.1); MONO % 11.5 % (3.8-10.2); NEUT % 64.7 % (42.8-82.8); PLATELET COUNT 162 10^3/uL (134-434); RBC 4.35 M/mm3 (3.60-5.2); RDW 14.6 % (11.6-15.6); WHITE BLOOD COUNT 6.1 K/mm3 (4.0-10.0)
[2022-12-17 17:36] LABS: INR 1.57 (0.83-1.09); PROTHROMBIN TIME (PATIENT) 18.1 SEC (9.7-13.0)
[2022-12-17 17:39] LABS: ACTIVATED PTT 36.1 SECONDS (25.2-36.5)
[2022-12-17 17:58] LABS: CALCIUM 10.2 mg/dL (8.5-10.1)
[2022-12-17 17:59] LABS: ALBUMIN 3.2 g/dl (3.4-5.0); BLOOD UREA NITROGEN 25.1 mg/dL (7-18)
[2022-12-17 18:02] LABS: CREATININE 0.6 mg/dL (0.55-1.3)
[2022-12-17 18:03] LABS: BILIRUBIN,TOTAL 0.4 mg/dL (0.2-1)
[2022-12-17 18:04] LABS: TOT PROT 6.5 g/dl (6.4-8.2)
[2022-12-17 18:28] LABS: EPI CELLS 7 /uL (0-25.1); HYALINE CASTS 0 /uL (0-3.1); URINE APPEARANCE TURBID; URINE BACTERIA 7280 /uL (0-1359); URINE BILIRUBIN NEGATIVE (NEGATIVE); URINE COLOR YELLOW; URINE GLUCOSE (UA) NEGATIVE (NEGATIVE); URINE KETONE NEGATIVE (NEGATIVE); URINE LEUK ESTERASE 3+ (NEGATIVE); URINE NITRITE POSITIVE (NEGATIVE); URINE PROTEIN TRACE (NEGATIVE); URINE RBC 844 /uL (0-23.9); URINE WBC 1766 /uL (0-25.8)
[2022-12-17] MEDS ORDERED: PIPERACILLIN/TAZOB 4.5 GM 4.5 GM in DEXTROSE 5%-WATER 100 ML IVPB ONE (19:56)
[2022-12-17] MEDS ORDERED: LINEZOLID 600 MG PREMIX BAG 600 MG in PREMIX 300 IV ONE (20:06)
[2022-12-17] MEDS ORDERED: PIPERACILLIN/TAZOB 4.5 GM 4.5 GM/100 ML BAG IVPB ONE (20:39)
[2022-12-18 04:58] VITALS: BMI 26.8
[2022-12-18] MEDS: GABAPENTIN 300 MG CAPSULE PO SCH (09:10)
[2022-12-18] MEDS: POTASSIUM CHLORIDE TABS 10 MEQ TABLET.ER (FP) PO SCH (09:10)
[2022-12-18] MEDS: DULoxetine HCL 30 MG CAPSULE.DR PO SCH (09:11)
[2022-12-18] MEDS: FUROSEMIDE 40 MG TABLET (FP) PO SCH (09:11)
[2022-12-18] MEDS: QUINAPRIL HCL 20 MG TABLET PO SCH (09:13)
[2022-12-18] MEDS: METOPROLOL TARTRATE 50 MG TABLET (FP) PO SCH ×2 (09:14→21:50)
[2022-12-18] MEDS ORDERED: APIXABAN 5 MG TABLET PO SCH (10:00)
[2022-12-18 11:32] LABS: HEMATOCRIT 40.5 % (32.4-45.2); HEMOGLOBIN 13.4 GM/dL (10.7-15.3); MCH 32.8 pg (25.7-33.7); MCHC 33.2 g/dl (32.0-36.0); MEAN CELL VOLUME 98.7 fl (80-96); MEAN PLT VOLUME 9.2 fl (7.5-11.1); PLATELET COUNT 167 10^3/uL (134-434); WHITE BLOOD COUNT 6.5 K/mm3 (4.0-10.0)
[2022-12-18 12:09] LABS: BLOOD UREA NITROGEN 24.5 mg/dL (7-18); CALCIUM 10.3 mg/dL (8.5-10.1)
[2022-12-18 12:10] LABS: ALBUMIN 3.1 g/dl (3.4-5.0); MAGNESIUM 2.1 mg/dL (1.8-2.4)
[2022-12-18 12:12] LABS: CREATININE 0.8 mg/dL (0.55-1.3); PHOSPHOROUS 2.4 mg/dL (2.5-4.9)
[2022-12-18 12:13] LABS: TOT PROT 6.3 g/dl (6.4-8.2)
[2022-12-18 12:14] LABS: BILIRUBIN,TOTAL 0.6 mg/dL (0.2-1)
[2022-12-18] MEDS ORDERED: NAPH,MB-DB/K PH,MBDB POWDER PACKET PO ONE (16:42)
[2022-12-18] MEDS ORDERED: POTASSIUM CHLORIDE TABS 20 MEQ TABLET.ER (FP) PO ONE (16:42)
[2022-12-18] MEDS: CEPHALEXIN MONOHYDRATE 500 MG CAPSULE (UD) PO SCH (17:17)
[2022-12-18] MEDS ORDERED: ATORVASTATIN CA 10 MG TABLET (FP) PO SCH (22:00)
[2022-12-19] MEDS: CEPHALEXIN MONOHYDRATE 500 MG CAPSULE (UD) PO SCH ×2 (00:30→05:56)
[2022-12-19 09:23] LABS: HEMATOCRIT 39.9 % (32.4-45.2); MCH 32.8 pg (25.7-33.7); MCHC 32.6 g/dl (32.0-36.0); MEAN CELL VOLUME 100.4 fl (80-96); MEAN PLT VOLUME 9.4 fl (7.5-11.1); PLATELET COUNT 161 10^3/uL (134-434); RBC 3.97 M/mm3 (3.60-5.2); RDW 14.3 % (11.6-15.6); WHITE BLOOD COUNT 4.7 K/mm3 (4.0-10.0)
[2022-12-19 09:35] LABS: CALCIUM 10.3 mg/dL (8.5-10.1)
[2022-12-19 09:36] LABS: MAGNESIUM 2.2 mg/dL (1.8-2.4)
[2022-12-19 09:39] LABS: CREATININE 0.7 mg/dL (0.55-1.3); PHOSPHOROUS 2.6 mg/dL (2.5-4.9)
[2022-12-19] MEDS: FUROSEMIDE 40 MG TABLET (FP) PO SCH (09:51)
[2022-12-19] MEDS: METOPROLOL TARTRATE 50 MG TABLET (FP) PO SCH (09:52)
[2022-12-19] MEDS: QUINAPRIL HCL 20 MG TABLET PO SCH (09:52)
[2022-12-19] MEDS: GABAPENTIN 300 MG CAPSULE PO SCH (09:52)
[2022-12-19] MEDS: POTASSIUM CHLORIDE TABS 10 MEQ TABLET.ER (FP) PO SCH (09:52)
[2022-12-19] MEDS: DULoxetine HCL 30 MG CAPSULE.DR PO SCH (09:52)
[2022-12-19 19:46] VITALS: RESP 18
[2022-12-19 20:44] VITALS: BP 112/71; PULSE 66; TEMP 97.5
== END 2022-12-19 20:40 | disposition home or self-care (01) | DRG 690 ==
LOC: JER 16:12 → JERBED 20:17 → OBSVTOIN 23:29 → J6S 23:43
PROVIDERS: ADMIT Internal Medicine; ATTEND Internal Medicine
DX: N39.0 Urinary tract infection, site not specified (principal); I50.30 Unspecified diastolic (congestive) heart failure; I48.20 Chronic atrial fibrillation, unspecified; R31.0 Gross hematuria; F32.A Depression, unspecified; I10 Essential (primary) hypertension; E78.5 Hyperlipidemia, unspecified; R82.71 Bacteriuria; E83.52 Hypercalcemia; B96.20 Unspecified Escherichia coli [E. coli] as the cause of diseases classified elsewhere; E87.6 Hypokalemia
CPT/HCPCS: 0241U-QW; 36415; 80048; 80053; 81003; 82306; 82607; 83735; 83970; 84100; 85025; 85027; 85610; 85730; 87086; 87186; 93005; 93010; 97162-GP; 99285-25; G0378

== ENCOUNTER 2023-02-16 13:01 | Emergency (ER) | payer OTHER, MEDICARE ==
[2023-02-16 13:14] VITALS: TEMP 97.6; BMI 26.6
[2023-02-16 14:59] LABS: EPI CELLS 16 /uL (0-25.1); HYALINE CASTS 5 /uL (0-3.1); URINE APPEARANCE TURBID; URINE BACTERIA 8795 /uL (0-1359); URINE BILIRUBIN NEGATIVE (NEGATIVE); URINE COLOR YELLOW; URINE GLUCOSE (UA) NEGATIVE (NEGATIVE); URINE KETONE NEGATIVE (NEGATIVE); URINE LEUK ESTERASE 3+ (NEGATIVE); URINE NITRITE NEGATIVE (NEGATIVE); URINE PROTEIN TRACE (NEGATIVE); URINE WBC 947 /uL (0-25.8)
[2023-02-16 15:06] LABS: URINE RBC 37 /uL (0-23.9)
[2023-02-16] MEDS ORDERED: SULFAMETHOXAZOLE/TRIMETHOPRIM 800MG/160MG D.S. TABLET PO ONE (16:08)
[2023-02-16] MEDS ORDERED: SULFAMETHOXAZOLE/TRIMETHOPRIM 800MG/160MG D.S. TABLET ONE (16:15)
[2023-02-16 20:15] VITALS: BP 124/86; PULSE 68; RESP 20
== END 2023-02-16 20:16 | disposition home or self-care (01) ==
LOC: JER 13:01
PROC: 0T9B70Z Drainage of Bladder with Drainage Device, Via Natural or Artificial Opening (ICD-10-PCS; principal; 2023-02-16)
DX: T83.511A Infection and inflammatory reaction due to indwelling urethral catheter, initial encounter (principal); R10.30 Lower abdominal pain, unspecified; Y84.6 Urinary catheterization as the cause of abnormal reaction of the patient, or of later complication, without mention of misadventure at the time of the procedure
CPT/HCPCS: 81003; 87086; 87186; 99283-25

== ENCOUNTER 2023-04-22 14:44 | Emergency (ER) | payer OTHER, MEDICARE ==
[2023-04-22 15:15] VITALS: RESP 16; TEMP 97.5; BMI 25.0
[2023-04-22 16:38] LABS: EPI CELLS 3 /uL (0-25.1); HYALINE CASTS 0 /uL (0-3.1); URINE APPEARANCE TURBID; URINE BACTERIA 2744 /uL (0-1359); URINE BILIRUBIN NEGATIVE (NEGATIVE); URINE COLOR YELLOW; URINE GLUCOSE (UA) NEGATIVE (NEGATIVE); URINE KETONE NEGATIVE (NEGATIVE); URINE LEUK ESTERASE 3+ (NEGATIVE); URINE NITRITE NEGATIVE (NEGATIVE); URINE PROTEIN NEGATIVE (NEGATIVE); URINE RBC 98 /uL (0-23.9); URINE WBC 7269 /uL (0-25.8)
[2023-04-22 19:53] VITALS: BP 115/68; PULSE 77
== END 2023-04-22 20:19 | disposition home or self-care (01) ==
LOC: JER 14:44
PROC: 0T9B70Z Drainage of Bladder with Drainage Device, Via Natural or Artificial Opening (ICD-10-PCS; principal; 2023-04-22)
DX: T83.031A Leakage of indwelling urethral catheter, initial encounter (principal); N39.0 Urinary tract infection, site not specified; Y84.6 Urinary catheterization as the cause of abnormal reaction of the patient, or of later complication, without mention of misadventure at the time of the procedure
CPT/HCPCS: 81003; 87086; 87186; 99283-25

== ENCOUNTER 2023-06-14 14:46 | Emergency (ER) | payer OTHER, MEDICARE ==
[2023-06-14 15:31] VITALS: RESP 18; BMI 27.4
[2023-06-14 16:20] LABS: BASO % 1.2 % (0-2.0); HEMATOCRIT 40.5 % (32.4-45.2); HEMOGLOBIN 13.8 GM/dL (10.7-15.3); LYMPH % 17.7 % (8-40); MCH 33.7 pg (25.7-33.7); MCHC 34.1 g/dl (32.0-36.0); MEAN CELL VOLUME 98.7 fl (80-96); MEAN PLT VOLUME 8.2 fl (7.5-11.1); MONO % 11.1 % (3.8-10.2); PLATELET COUNT 198 10^3/uL (134-434); RBC 4.11 M/mm3 (3.60-5.2); RDW 14.4 % (11.6-15.6); WHITE BLOOD COUNT 6.4 K/mm3 (4.0-10.0)
[2023-06-14 16:49] LABS: POTASSIUM 3.8 mmol/L (3.5-5.1)
[2023-06-14 16:51] LABS: ALBUMIN 3.4 g/dl (3.4-5.0); BLOOD UREA NITROGEN 22.2 mg/dL (7-18); CALCIUM 10.3 mg/dL (8.5-10.1)
[2023-06-14 16:54] LABS: CREATININE 0.8 mg/dL (0.55-1.3)
[2023-06-14 16:56] LABS: BILIRUBIN,TOTAL 0.4 mg/dL (0.2-1); TOT PROT 6.8 g/dl (6.4-8.2)
[2023-06-14 18:11] LABS: EPI CELLS 8 /uL (0-25.1); HYALINE CASTS 1 /uL (0-3.1); PH,URINE 6.5 (5.0-8.0); URINE APPEARANCE CLEAR; URINE BACTERIA 21 /uL (0-1359); URINE BILIRUBIN NEGATIVE (NEGATIVE); URINE COLOR YELLOW; URINE GLUCOSE (UA) NEGATIVE (NEGATIVE); URINE KETONE NEGATIVE (NEGATIVE); URINE LEUK ESTERASE 2+ (NEGATIVE); URINE NITRITE NEGATIVE (NEGATIVE); URINE PROTEIN NEGATIVE (NEGATIVE); URINE RBC 24 /uL (0-23.9); URINE WBC 178 /uL (0-25.8)
[2023-06-14 18:52] VITALS: BP 129/80; PULSE 62; TEMP 97.5
== END 2023-06-14 23:59 | disposition home or self-care (01) ==
LOC: JER 14:46
PROC: 0T9B70Z Drainage of Bladder with Drainage Device, Via Natural or Artificial Opening (ICD-10-PCS; principal; 2023-06-14)
DX: R31.9 Hematuria, unspecified (principal); T83.511A Infection and inflammatory reaction due to indwelling urethral catheter, initial encounter; M48.061 Spinal stenosis, lumbar region without neurogenic claudication; Y84.6 Urinary catheterization as the cause of abnormal reaction of the patient, or of later complication, without mention of misadventure at the time of the procedure
CPT/HCPCS: 36415; 80053; 81003; 85025; 87086; 99283-25